=== PATIENT | male | born 1960 | race Caucasian/White ===

== ENCOUNTER 2023-08-02 17:00 | Outpatient (REF) | payer BC, SELFPAY | END 2023-08-02 17:01 | disposition home or self-care (01) | LOC: HO.LAB 17:00 | PROVIDERS: PCP Internal Medicine; Visit Provider Internal Medicine | DX: Z12.5 Encounter for screening for malignant neoplasm of prostate (principal); I45.10 Unspecified right bundle-branch block; Z72.0 Tobacco use; Z85.46 Personal history of malignant neoplasm of prostate | CPT/HCPCS: 36415; 80053; 82465; 84153; 85025 ==

== ENCOUNTER 2023-08-09 11:50 | Outpatient (REF) | payer BC, SELFPAY ==
[2023-08-09 12:43] LABS: Cholesterol 217 mg/dL (<200); HDL Cholesterol 41 mg/dL (>40); LDL Cholesterol Calculated 128 mg/dL (<100); Triglycerides 241 mg/dL (<150)
== END 2023-08-09 11:51 | disposition home or self-care (01) ==
LOC: HO.LAB 11:50
PROVIDERS: PCP Internal Medicine; Visit Provider Internal Medicine
DX: E78.00 Pure hypercholesterolemia, unspecified (principal)
CPT/HCPCS: 36415; 80061

== ENCOUNTER 2023-09-06 10:59 | Outpatient (AMB) | payer BC, SELFPAY ==
--- NOTE | 2023-09-06 11:05 | A.OFFVIS_ITS ---
Intake Intake Visit Reasons: Elevated PSA Intake Note: New Patient presents for initial visit for Elevated PSA (previously DrOsman Jones) PSA: 9.0 Urology Medications: none Blood Thinner: none De Ionizer Operator Required: No Accompanied by: Self / Same As Patient Allergies No Known Allergies Allergy (Verified 09/06/23 11:54) Medication List - Last Reconciled 09/06/23 by CARMEN Walton-ERICH brimonidine 0.2% drps ophthalmic (eye) cetirizine (Zyrtec) 10 mg PO DAILY HPI HPI Comments History of Present Illness Details Lennox is a pleasant 63-year-old male patient of Dr. Diamond. He presents to the office today as a new patient for an elevated PSA. In discussion with the patient today he reports to be doing and feeling well. He discusses having a follow-up with his PCP at which time his PSA was noted to be elevated at 9.July. He discusses previously following up with Dr. Sheppard approximately 8-10 years ago and having had prostate biopsy noting prostate cancer however never followed up. He is unsure of the level of his PSA at diagnosis and or exact results he states He just told me I had prostate cancer. Attempted to obtain previous urological records however unable to at this time. Attempted to archive information from [employer] however no prostate biopsy and or PSAs noted. Discussed at length importance of following up for overall health and well-being. Discussed prostate biopsy verses MRI verses surveillance monitoring these treatment options were discussed at length as well as risks and benefits of these treatment options. He currently denies any bothersome urinary issues or concerns. In office urinalysis results reviewed with the patient today. He otherwise offers no other issues or concerns at this time. [facility] Surgical History History of cataract surgery Review of Systems Const All systems reviewed & are unremarkable except as noted in HPI and below Physical Exam Const General: cooperative, comfortable, no acute distress, well developed, alert and awake Nutritional Appearance: overweight Orientation/consciousness: patient oriented x3 Limitations: no limitations HEENT Head: Yes normal to inspection, Yes normocephalic and Yes atraumatic Ears: hearing grossly normal bilaterally Eyes General: appearance normal, both eyes and all related structures Neck Neck: Yes normal visual inspection and Yes trachea midline Chest Chest palpation & inspection: normal inspection of the chest Resp Effort & Inspection: normal respiratory effort and able to speak in complete sentences Cardio Rate: regular rate GI Inspection: Yes normal to inspection General: Yes no CVA tenderness Back/Spine/Pelvis Back: no CVA tenderness Skin General skin exam: no rashes or lesions noted Neuro General: patient oriented x3 Extrem General: Yes normal to inspection Psych Appearance: grossly normal and well kempt Mental Status: mental status grossly normal Speech and movement: Normal speech and movement present and Clear speech present Affect: normal affect Attitude: cooperative Thought process: Normal thought process present Thought content: Normal thought content present Insight: Fair insight present (Psych) Judgement: Fair judgement present (Psych) Results AMB Urinalysis, Automated UA Leukoctes 0 Ehsan/uL Last Edit by [employer] CatherineMiroi on 09/06/23 11:30 UA Nitrite Negative Last Edit by [employer] on 09/06/23 11:30 UA Urobilinogen 0.2 mg/dL Last Edit by [employer] CatherineMiroi on 09/06/23 11:30 UA Protein 15 mg/dL Last Edit by [employer] CatherineMiroi on 09/06/23 11:30 UA pH 6.0 Last Edit by [employer] on 09/06/23 11:30 UA Blood 0 Aj/uL Last Edit by [employer] on 09/06/23 11:30 UA Specific [place] 1.025 Last Edit by [employer] on 09/06/23 11:30 UA Ketone Negative Last Edit by [employer] on 09/06/23 11:30 UA Bilirubin 0 mg/dL Last Edit by [employer] on 09/06/23 11:30 UA Glucose 0 mg/dL Last Edit by [employer] on 09/06/23 11:30 Results Reviewed Results Reviewed: Laboratory Last Values Urine pH (Auto) 6.0 09/06/23 11:23 Specific [place] (Auto) 1.025 09/06/23 11:23 Urine Protein (Auto) 15 mg/dL 09/06/23 11:23 Glucose (UA)(Auto) 0 mg/dL 09/06/23 11:23 Urine Ketones (Auto) Negative 09/06/23 11:23 Urine Blood (Auto) 0 Aj/uL 09/06/23 11:23 Urine Nitrite (Auto) Negative 09/06/23 11:23 Urine Bilirubin (Auto) 0 mg/dL 09/06/23 11:23 Urine Urobilinogen (Auto) 0.2 mg/dL 09/06/23 11:23 Leukocyte Esterase (Auto) 0 Ehsan/uL 09/06/23 11:23 Assessment & Plan Assessment & Plan (1) Elevated PSA: Code(s): R97.20 - Elevated prostate specific antigen [PSA] (2) History of prostate cancer: Code(s): Z85.46 - Personal history of malignant neoplasm of prostate Plan In office urinalysis results reviewed with the patient today; as noted above. Discussed at length importance of following up for overall health and well being. He currently denies any bothersome urinary issues or concerns. Attempted to obtain previous urology records Discussed at length further treatment options with prostate biopsy, MRI of the prostate, and or surveillance monitoring; this was discussed at length; risks and benefits of these interventions were discussed at length. Will obtain MRI given history of prostate cancer; discussed targeted prostate biopsy once MRI is completed and reviewed. Follow-up in 1 month with imaging to be completed prior; or sooner with any issues, concerns, and or questions. Orders: Orders AMB Urinalysis Automated Today Z13.9 - Encounter for screening, unspecified MR pelvis wo/w con Today C61 - Malignant neoplasm of prostate Patient Instructions: The patient had an opportunity to ask questions regarding the treatment plan. All questions were answered. Physical exam, labs, and imaging were discussed and reviewed in detail. As well as risks, benefits, and discussion of treatment choices. No major barriers to understanding were identified. The patient expressed understanding and agreement with the above treatment plan. The patient was made aware they should contact our office by phone for worsening of their current condition, the appearance of new symptoms, or with any questions or concerns. Compliance is encouraged with any medications and follow up testing that is ordered. It is a privilege to be allowed the opportunity to participate in? your urological care.? Again, if you have any questions or concerns If you have any questions or concerns please do not hesitate to contact me. The office is [phone]. This note is constructed using voice recognition software. While every effort has been made to ensure accuracy multiple slide operator errors may have been included. Yours sincerely, SANDRA Walton Coding Level of Care Code New Pt Level 3 (99136) Diagnoses Elevated PSA R97.20 History of prostate cancer Z85.46
== END 2023-09-06 11:55 | disposition home or self-care (01) ==
PROVIDERS: PCP Internal Medicine; Visit Provider Nurse Practitioner Family
DX: R97.20 Elevated prostate specific antigen [PSA] (principal); Z85.46 Personal history of malignant neoplasm of prostate; Z13.9 Encounter for screening, unspecified
CPT/HCPCS: 99203

== ENCOUNTER → 2023-09-06 10:59 | Outpatient (BNVA) | payer BC, SELFPAY | PROVIDERS: PCP Internal Medicine; Visit Provider Nurse Practitioner Family | DX: R97.20 Elevated prostate specific antigen [PSA] (principal); Z85.46 Personal history of malignant neoplasm of prostate | CPT/HCPCS: 81003 ==

== ENCOUNTER 2023-11-01 11:23 | Outpatient (AMB) | payer BC, SELFPAY ==
--- NOTE | 2023-11-01 11:24 | MHC.OFFVIS ---
Intake Intake Visit Reasons: 6w/MRI Intake Note: Patient presents for follow up visit for Elevated PSA, h/o prostate cancer, mri results Imagin10/04/23 Urology Medications: none Blood Thinner: none Court Transcriber Required: No Accompanied by: Self / Same As Patient Allergies No Known Allergies Allergy (Verified 11/01/23 11:52) Medication List - Last Reconciled 11/01/23 by CARMEN Walton-ERICH brimonidine 0.2% drdebra ophthalmic (eye) cetirizine (Zyrtec) 10 mg PO DAILY HPI HPI Comments History of Present Illness Details Lennox is a pleasant 63-year-old male patient of Dr. Diamond. He presents to the office today for follow-up. Of note, patient was seen approximately 2 months ago as a new patient for an elevated PSA at which time an MRI of the prostate was ordered for further assessment evaluation. These results were reviewed with the patient today. Prostate gland is not significantly enlarged but there is a PI-RADS 4 lesion in the right posterior lateral peripheral zone of the mid gland measuring approximately 1.1 cm in size. The surrounding periprostatic fat is unremarkable. No enlarged suspicious pelvic lymph nodes noted. Indeterminate enhancing 1.5 cm lesion within the left femoral neck. Fat containing inguinal hernias present. In discussion with the patient today he reports to be doing and feeling well. He has a previous urological history with Dr. Sheppard approximately 8-10 years ago at which time he underwent prostate biopsy however is unsure of results as he never followed up. In review of patient's medical records unable to obtain previous urology records. Attempted to archive information from [employer] however no prostate biopsy and or PSAs noted. PSA 08/23 9.0 LEONOR offered however deferred. Discussed at length importance of following up for overall health and well-being. Discussed targeted prostate biopsy at length. He currently denies any bothersome urinary issues or concerns. In office urinalysis results reviewed with the patient today. He otherwise offers no other issues or concerns at this time. [facility] Surgical History History of cataract surgery Review of Systems Const All systems reviewed & are unremarkable except as noted in HPI and below Physical Exam Const General: cooperative, comfortable, no acute distress, well developed, alert and awake Nutritional Appearance: overweight Orientation/consciousness: patient oriented x3 Limitations: no limitations HEENT Head: Yes normal to inspection, Yes normocephalic and Yes atraumatic Ears: hearing grossly normal bilaterally Eyes General: appearance normal, both eyes and all related structures Neck Neck: Yes normal visual inspection and Yes trachea midline Chest Chest palpation & inspection: normal inspection of the chest Resp Effort & Inspection: normal respiratory effort and able to speak in complete sentences Cardio Rate: regular rate GI Inspection: Yes normal to inspection General: Yes no CVA tenderness Back/Spine/Pelvis Back: no CVA tenderness Skin General skin exam: no rashes or lesions noted Neuro General: patient oriented x3 Extrem General: Yes normal to inspection Psych Appearance: grossly normal and well kempt Mental Status: mental status grossly normal Speech and movement: Normal speech and movement present and Clear speech present Affect: normal affect Attitude: cooperative Thought process: Normal thought process present Thought content: Normal thought content present Insight: Fair insight present (Psych) Judgement: Fair judgement present (Psych) Results AMB Urinalysis, Automated UA Leukoctes 15 Ehsan/uL Last Edit by [employer] on 11/01/23 11:35 UA Nitrite Negative Last Edit by [employer] on 11/01/23 11:35 UA Urobilinogen 0.2 mg/dL Last Edit by [employer] on 11/01/23 11:35 UA Protein 15 mg/dL Last Edit by [employer] on 11/01/23 11:35 UA pH 5.5 Last Edit by [employer] on 11/01/23 11:35 UA Blood 0 Aj/uL Last Edit by [employer] on 11/01/23 11:35 UA Specific [place] 1.020 Last Edit by [employer] on 11/01/23 11:35 UA Ketone Negative Last Edit by [employer] on 11/01/23 11:35 UA Bilirubin 0 mg/dL Last Edit by [employer] on 11/01/23 11:35 UA Glucose 0 mg/dL Last Edit by [employer] on 11/01/23 11:35 Results Reviewed Results Reviewed: Laboratory Last Values Urine pH (Auto) 5.5 11/01/23 11:30 Specific [place] (Auto) 1.020 11/01/23 11:30 Urine Protein (Auto) 15 mg/dL 11/01/23 11:30 Glucose (UA)(Auto) 0 mg/dL 11/01/23 11:30 Urine Ketones (Auto) Negative 11/01/23 11:30 Urine Blood (Auto) 0 Aj/uL 11/01/23 11:30 Urine Nitrite (Auto) Negative 11/01/23 11:30 Urine Bilirubin (Auto) 0 mg/dL 11/01/23 11:30 Urine Urobilinogen (Auto) 0.2 mg/dL 11/01/23 11:30 Leukocyte Esterase (Auto) 15 Ehsan/uL 11/01/23 11:30 Assessment & Plan Assessment & Plan (1) Elevated PSA: Code(s): R97.20 - Elevated prostate specific antigen [PSA] (2) History of prostate cancer: Code(s): Z85.46 - Personal history of malignant neoplasm of prostate Plan: Risks, benefits and alternatives to therapy were discussed. These include but are not limited to infection, bleeding, damage to local organs and tissues, need for further interventions. ? Anesthetic risks regarding cardiac arrhythmia, blood clots, and potential mortality were discussed. The patient understands the typical recovery time and the outpatient nature of the procedure. After consideration of these risks the patient gives full informed consent and they wish to move ahead with the procedure. Plan In office urinalysis results reviewed with the patient today; as noted above. Recent prostate MRI results reviewed with the patient today; as noted above Discussed obtaining bone scan and left-sided femur x-ray for further assessment evaluation. Discussed at length targeted prostate biopsy verses surveillance monitoring verses traditional prostate biopsy; risks and benefits of these interventions were discussed at length. Patient otherwise denies any bothersome urinary issues or concerns. Patient reports be happy with current voiding parameters. Will schedule for targeted prostate biopsy Follow-up doctor's orders; or sooner with any issues, concerns, and or questions. Orders: Orders AMB Urinalysis Automated Today Z13.9 - Encounter for screening, unspecified XR femur LT 2V Today R97.20 - Elevated prostate specific antigen [PSA], Z85.46 - Personal history of malignant neoplasm of prostate NM bone scan whole body Today C61 - Malignant neoplasm of prostate, C79.51 - Secondary malignant neoplasm of bone Patient Instructions: The patient had an opportunity to ask questions regarding the treatment plan. All questions were answered. Physical exam, labs, and imaging were discussed and reviewed in detail. As well as risks, benefits, and discussion of treatment choices. No major barriers to understanding were identified. The patient expressed understanding and agreement with the above treatment plan. The patient was made aware they should contact our office by phone for worsening of their current condition, the appearance of new symptoms, or with any questions or concerns. Compliance is encouraged with any medications and follow up testing that is ordered. It is a privilege to be allowed the opportunity to participate in? your urological care.? Again, if you have any questions or concerns If you have any questions or concerns please do not hesitate to contact me. The office is [phone]. This note is constructed using voice recognition software. While every effort has been made to ensure accuracy balancer scale errors may have been included. Yours sincerely, SANDRA Walton Coding Level of Care Code Est Pt Level 4 (71186) Diagnoses Elevated PSA R97.20 History of prostate cancer Z85.46
== END 2023-11-01 11:49 | disposition home or self-care (01) ==
PROVIDERS: PCP Internal Medicine; Visit Provider Nurse Practitioner Family
DX: R97.20 Elevated prostate specific antigen [PSA] (principal); Z85.46 Personal history of malignant neoplasm of prostate; Z13.9 Encounter for screening, unspecified
CPT/HCPCS: 99214

== ENCOUNTER → 2023-11-01 11:23 | Outpatient (BNVA) | payer BC, SELFPAY | PROVIDERS: PCP Internal Medicine; Visit Provider Nurse Practitioner Family | DX: R97.20 Elevated prostate specific antigen [PSA] (principal); Z85.46 Personal history of malignant neoplasm of prostate | CPT/HCPCS: 81003 ==

== ENCOUNTER → 2023-12-18 10:04 | Outpatient (REF) | payer BC, SELFPAY ==
--- NOTE | ~2023-12-18 | NM_ITS ---
EXAMINATION: NM BONE SCAN OF THE WHOLE BODY CLINICAL INFORMATION: Malignant neoplasm of prostate. Elevated PSA. The patient is found to have an indeterminate enhancing 1.5 cm lesion within the left femoral neck on recent outside MRI of the prostate. Bilateral hip pain. COMPARISON: Radiographs of the left femur done on the same day. TECHNIQUE: Multiple gamma scintillation camera images of the whole body were performed 2.75 hours following the intravenous administration of 40 mCi Tc-99m MDP. The radiotracer was injected through left antecubital superficial vein without complications. FINDINGS: In the head, unremarkable. In the thoracic cage and upper extremities, remarkable for asymmetric linear increased tracer avidity at mid anterolateral aspect of the left hemithoracic cage appears to corresponds to left sixth rib (best seen in CHINTAN projection), highly suspicious for osseous metastases in this patient with history of prostate cancer. The remainder of the thoracic cage otherwise scintigraphically appears unremarkable. In the spine, no suspicious focal lesion. In the pelvis, no suspicious focal lesion. In the lower extremities, in the region of the left femoral neck, there is no definite concordant scintigraphic abnormality present. However, slight heterogenicity is noted in the intertrochanteric region of the left femur. Mild increased tracer avidity at right mid foot and region of the left ankle likely represent posttraumatic and/or arthritic changes. No other definite bony abnormalities are noted. The urinary bladder and faint visualization of both kidneys are noted. NM/NM bone scan whole body IMPRESSION: * Solitary linear increased tracer avidity is noted involving the mid anterolateral aspect of the left sixth rib highly suspicious for osseous metastases in this patient with history of malignant neoplasm of prostate. * No definite scintigraphic correlate to reported 1.5 cm enhancing lesion within the left femoral neck. The intertrochanteric region of the left femur however appears slightly heterogeneous, indeterminate etiology. * Likely posttraumatic and/or arthritic changes involving the left ankle and right midfoot. * A follow-up PSMA PET/CT scan may be considered for further full detail evaluation (more accurate test as compared to the bone scan) of both the soft tissue as well as osseous metastasis, if clinically appropriate.
--- NOTE | ~2023-12-18 | XR_ITS ---
EXAMINATION: XR FEMUR, LEFT CLINICAL INFORMATION: Indeterminant lesion in left femoral neck COMPARISON: Bone scan November 2023 TECHNIQUE: AP and lateral views of the left femur were obtained. FINDINGS: Question punctate areas of increased density in the intertrochanteric region over near measuring 2.4 x 1 cm. Bone otherwise unremarkable. Degenerative changes of symphysis pubis. Arterial calcification noted XR/XR femur LT 2V IMPRESSION: Indeterminant finding in the intertrochanteric region this could reflect normal variation of bone density but cannot exclude bone lesion possibly cartilage lesion/enchondroma. Recommend follow-up imaging with MRI to clarify given the combination of x-ray and bone scan findings in patients history of malignant neoplasm of prostate
== END ==
LOC: HO.NUCMED 10:04
PROVIDERS: PCP Internal Medicine; Visit Provider Nurse Practitioner Family
DX: C61 Malignant neoplasm of prostate (principal); C79.51 Secondary malignant neoplasm of bone; R97.20 Elevated prostate specific antigen [PSA]; Z85.46 Personal history of malignant neoplasm of prostate
CPT/HCPCS: 73552; 78306; A9503

== ENCOUNTER 2023-12-26 15:00 | Outpatient (AMB) | payer BC, SELFPAY ==
--- NOTE | 2023-12-26 14:51 | MHC.OFFVIS ---
Intake Visit Reasons: H&P Targeted Prostate biopsy Allergies No Known Allergies Allergy (Verified 01/01/24 12:14) HPI Comments Details: Samy is a pleasant male. He has a patient of Dr. Diamond. He seen for the following urologic conditions - elevated PSA Plan for fusion biopsy Procedure discussed Main risk is infection Elevated PSA PSA 08/23 9.0 Prostate MRI performed. Gland not significantly enlarged. Indeterminate enhancing 1.5 lesion. PI-RADS 4 lesion right posterolateral peripheral zone PFSH Medical History Hay fever Surgical History Hx of hand surgery History of cataract surgery Social History Household Members: Spouse Household Members Other:: 2 Housing: House Do you presently have visiting nurse or other home services: No Alcohol intake: current Patient Tobacco Use Status: Current everyday Tobacco user Tobacco use type: Cigarette Cigarette Packs Per Day: 0.5 Cigarettes Per Day: 10.0 Second Hand Smoke Exposure: No Substance Use Type: Marijuana service: No Review of Systems Const Denies chills and Denies fever(s) Card Reports no additional complaints and Denies syncope Resp Denies cough GI Denies abdominal pain and Denies heartburn Reports as per HPI and Denies change in libido Neuro Denies syncope Psych Denies change in libido Endo Denies change in libido Physical Exam Const General: cooperative, healthy appearing, comfortable and no acute distress Orientation/consciousness: patient oriented x3 HEENT Face and sinus: Yes normal facial exam Mouth: moist mucous membranes Neck Neck: Yes normal visual inspection, Yes full ROM and Yes trachea midline Chest Chest palpation & inspection: normal inspection of the chest Resp Effort & Inspection: normal respiratory effort, able to speak in complete sentences and no respiratory distress GI Inspection: Yes normal to inspection Back/Spine/Pelvis Cervical Spine: normal cervical lordosis Thoracic/Lumbar Spine: thoracic and lumbar spine normal to inspection Skin General skin exam: no rashes or lesions noted Neuro General: patient oriented x3, gait normal, tone normal and moves all extremities Extrem General: Yes normal to inspection and Yes capillary refill normal Assessment & Plan Assessment & Plan (1) Elevated PSA: Code(s): R97.20 - Elevated prostate specific antigen [PSA] Category: Medical Plan Risks, benefits and alternatives to therapy were discussed. These include but are not limited to infection, bleeding, damage to local organs and tissues, need for further interventions. Anesthetic risks regarding cardiac arrhythmia, blood clots, and potential mortality were discussed. The patient understands the typical recovery time and the outpatient nature of the procedure. After consideration of these risks the patient gives full informed consent and they wish to move ahead with the procedure. Plan for MRI ultrasound fusion targeted biopsy Patient Instructions: Imaging studies, laboratory and physical exam results were discussed and reviewed in detail. No major barriers to patient understanding were identified. An opportunity to ask questions regarding the treatment plan was provided. All questions were answered. The patient expressed understanding and agreement with the above treatment plan. The patient is aware they should contact our office by phone for worsening of their current condition or the appearance of new urologic symptoms. Compliance is encouraged with any medications and followup testing that is ordered. It is a privilege to participate in the urologic care of your patient. If you have any questions or concerns regarding treatment for the above conditions, or other urologic issues, please do not hesitate to contact me. The office telephone contact is [phone]. This note is constructed using voice recognition software. While every effort has been made to ensure accuracy ex assistant/program director errors may have been included. Yours sincerely, Dr Epi Marie MD, [facility] - Urology Providers of Expert, Compassionate Care for the Genitourinary System Coding Level of Care Code Est Pt Level 3 (44729) Diagnoses Elevated PSA R97.20
== END 2023-12-26 15:06 | disposition home or self-care (01) ==
LOC: HO.HUSH 15:00
PROVIDERS: PCP Internal Medicine; Visit Provider Urology
DX: R97.20 Elevated prostate specific antigen [PSA] (principal)
CPT/HCPCS: 99213

== ENCOUNTER → 2023-12-26 15:00 | Outpatient (BNVA) | payer BC, SELFPAY | PROVIDERS: PCP Internal Medicine; Visit Provider Urology ==

== ENCOUNTER → 2024-01-01 10:32 | Day surgery (SDC) | payer BC, SELFPAY ==
--- NOTE | 2023-12-28 12:10 | HO.ANESPROP2 ---
HPI - Anesthesia Eval Consult details Narrative: Cx'd DOS for new onset afib with symptomatic SOB. Sent to ER for further eval. 63yo M for Targeted Prostate Needle Biopsy PMFSH Active Problems Active Problems: All Active Problems History of prostate cancer (Acute) Elevated PSA (Acute) Past Medical History Medical History Hay fever Surgical History Surgical History Hx of hand surgery History of cataract surgery Social History Social History Household Members: Spouse Household Members Other:: 2 Housing: House Do you presently have visiting nurse or other home services: No Alcohol intake: current Patient Tobacco Use Status: Current everyday Tobacco user Tobacco use type: Cigarette Cigarette Packs Per Day: 0.5 Cigarettes Per Day: 10.0 Second Hand Smoke Exposure: No Substance Use Type: Marijuana service: No Meds Allergies Allergy/AdvReac Type Severity Reaction Status Date / Time No Known Allergies Allergy Verified 01/01/24 12:14 Home Medications ?Medication ?Instructions ?Recorded ?Confirmed ?Last Taken ?Type cetirizine 10 mg chewable tablet 10 mg PO DAILY 09/06/23 01/01/24 12/31/23 History (Zyrtec) Assessment and Plan Assessment Anesthesia Assessment: Chart Reviewed
--- NOTE | 2024-01-01 | ECG_ITS ---
Test Reason : Tachycardia Blood Pressure : / mmHG Vent. Rate : 113 BPM Atrial Rate : 000 BPM P-R Int : 000 ms QRS Dur : 128 ms QT Int : 380 ms P-R-T Axes : 000 -76 116 degrees QTc Int : 521 ms Atrial fibrillation with rapid ventricular response with premature ventricular or aberrantly conducted complexes Left axis deviation Right bundle branch block Inferior infarct , age undetermined T wave abnormality, consider lateral ischemia Abnormal ECG No previous ECGs available Referred By: Tasha Nichols Electronically Signed By:MUSA FERGUSON MD
[2024-01-01 10:45] VITALS: BMI 35.2
--- NOTE | 2024-01-01 11:48 | PM.ANESPN ---
Subjective Subjective Date of Service: 01/01/24 Interval history: 63 yo M with history of prostate cancer arrived in Short Stay Surgery for targeted prostate needle biopsy. Reported feeling short of breath and fatigued for the past few days. Denies any chest pain. Negative cardiac history. Patient does smoke, uses marijuana, and consumes 2-3 beers daily. property assessment monitor showed tachycardia with HR in the 120s-130s. Stat EKG performed which showed atrial fibrillation with RVR. Called ED and spoke to staff - will transfer patient now for further work-up. Physical Exam Vital Signs: Vital Signs: BMI result Body Mass Index 35.2 Progress Note: A&P Time Spent With Patient Time: Total time managing care of this patient today ____ minutes. Procedures Date of Service Date of Service: 01/01/24
--- NOTE | 2024-01-01 11:54 | PC.NURSE ---
hr found to be in 130's with afib suspected. anes made aware and ekg done and confirmed afib. new onset. states feeling sob last few days. no chest pains or palpitations. to go to er for further evaluation per anesthesia. procedure cancelled at this time. iv #20g left hand. dana frederick reported to in er after doc to doc report given.. family notified by patient.
== END ==
PROVIDERS: PCP Internal Medicine; Visit Provider Urology
DX: R97.20 Elevated prostate specific antigen [PSA] (principal); I48.91 Unspecified atrial fibrillation; Z85.46 Personal history of malignant neoplasm of prostate; Z53.09 Procedure and treatment not carried out because of other contraindication
CPT/HCPCS: 93005; J2250; J2704; J3010

== ENCOUNTER → 2024-01-01 11:24 | Outpatient (BNV) | payer BC, SELFPAY | PROVIDERS: PCP Internal Medicine; Visit Provider Internal Medicine Cardiovascular Disease | DX: R94.31 Abnormal electrocardiogram [ECG] [EKG] (principal) | CPT/HCPCS: 93010 ==

== ENCOUNTER 2024-01-01 12:04 | Inpatient (IN) | payer BC, SELFPAY ==
[2024-01-01] VITALS (9 sets, daily range): BP systolic 98–120; BP diastolic 57–87; PULSE 60–127; RESP 16–25; TEMP 36.3–37.1; O2SAT 93–98; BMI 38.0; BMI 35.4
--- NOTE | ~2024-01-01 | XR_ITS ---
EXAMINATION: XR CHEST CLINICAL INFORMATION: Shortness of breath. COMPARISON: None available. TECHNIQUE: Frontal view of the chest was obtained. FINDINGS: The lungs are moderately expanded. There is pulmonary vascular prominence. There is mild interstitial edema. Cardiac silhouette appears prominent. No pleural effusion. XR/XR chest 1V IMPRESSION: Mild interstitial edema.
--- NOTE | 2024-01-01 12:06 | ECG_ITS ---
Test Reason : irregular hr Blood Pressure : / mmHG Vent. Rate : 119 BPM Atrial Rate : 000 BPM P-R Int : 000 ms QRS Dur : 128 ms QT Int : 376 ms P-R-T Axes : 000 -76 110 degrees QTc Int : 528 ms Atrial fibrillation with rapid ventricular response with premature ventricular or aberrantly conducted complexes Left axis deviation Right bundle branch block Inferior infarct (cited on or before 01-JAN-2024) T wave abnormality, consider lateral ischemia Abnormal ECG When compared with ECG of 01-JAN-2024 11:24, No significant change was found Referred By: Generic ED Physician Electronically Signed By:MUSA FERGUSON MD
[2024-01-01] MEDS: dilTIAZem HCL 50 MG/10 ML VIAL 10 MG IVPUSH (12:59)
[2024-01-01] MEDS: Midazolam HCl/PF 2 MG/2 ML VIAL IVPUSH (13:04)
[2024-01-01 13:05] LABS: MANUAL DIFF FLAG NO
[2024-01-01 13:06] LABS: Basophils Absolute Auto 0.1 X10*3/uL (0.0-0.2); Basophils Percent Auto 0.5 % (0-2); Eosinophils Absolute Auto 0.2 X10*3/uL (0.0-0.4); Eosinophils Percent Auto 2.3 % (0-4); Hematocrit 46.6 % (42.0-52.0); Hemoglobin 15.3 g/dl (14.0-18.0); Imm Gran Abs Auto 0.05 X10*3/uL (0.00-0.03); Imm Gran Pct Auto 0.5 % (0.0-0.4); Lymphocytes Absolute Auto 3.3 X10*3/uL (1.2-4.9); Lymphocytes Percent Auto 33.3 % (20-40); Mean Corpuscular HGB Conc 32.8 g/dl (31.0-36.0); Mean Corpuscular Hemoglobin 28.7 pg (27.0-33.0); Mean Corpuscular Volume 87.3 fL (80.0-98.0); Mean Platelet Volume 10.9 fL (9.4-12.4); Monocytes Absolute Auto 0.8 X10*3/uL (0.1-1.2); Monocytes Percent Auto 7.5 % (2-11); Neutrophils Absolute Auto 5.6 x10*3/uL (2.0-8.3); Neutrophils Percent Auto 55.9 % (45-73); Platelet Count 223 X10*3/uL (160-400); Red Blood Count 5.34 X10*6/uL (4.60-5.80); Red Cell Distribution Width 14.4 % (11.0-16.0)
[2024-01-01 13:15] LABS: D Dimer High Sensitivity 203 NG/ML
[2024-01-01 13:27] LABS: Anion Gap 12 (12-20); Blood Urea Nitrogen 14 mg/dL (9-16); Calcium 9.1 mg/dL (8.4-10.2); Carbon Dioxide 24 mmol/L (22-29); Chloride 109 mmol/L (96-108); Creatinine Clr Calc Pharmacy 117.2; Estimated Glomerular Filt Rate > 60; Glucose Random 93 mg/dL (60-115); Potassium 4.1 mmol/L (3.3-5.1); Sodium 141 mmol/L (135-145)
[2024-01-01 13:33] LABS: B Type Natriuretic Peptide 1104 pg/mL (<100)
[2024-01-01 13:45] LABS: Troponin-I High Sensitivity 362.1 ng/L (<3.5-35.0)
--- NOTE | 2024-01-01 13:46 | ED_ITS ---
HPI - General Adult General Chief complaint: Arrhythmia/Palpitations Stated complaint: AFIB Time Seen by Provider: 01/01/24 12:37 Source: patient Mode of arrival: ambulatory Limitations: no limitations History of Present Illness ED Provider: Dr. Becker HPI narrative: patient has been short of breath for the last 4 days. He was to have anesthesia today for a prostate biopsy and was found to be in rapid atrial fibrillation, he denies chest pain or palpitations but noted increased shortness of breath. Patient does drink everyday Related Data Home Medications ?Medication ?Instructions ?Recorded ?Confirmed cetirizine 10 mg chewable tablet 10 mg PO DAILY 09/06/23 01/01/24 (Zyrtec) Allergies Allergy/AdvReac Type Severity Reaction Status Date / Time No Known Allergies Allergy Verified 01/01/24 12:14 Review of Systems 2 Review of Systems: Yes all other systems are reviewed and are negative Cardiovascular: Cardiovascular: Reports dyspnea Respiratory: Respiratory: Reports dyspnea Neurologic: Denies Sensory deficit (Neuro) [facility] Past Medical History Medical History Hay fever Surgical History Hx of hand surgery History of cataract surgery Social History Social History Patient Tobacco Use Status: Current everyday Tobacco user Tobacco use type: Cigarette Cigarettes Per Day: 15 Physical Exam ED Vital Signs: Vital Signs - 24 hr 01/01/24 12:07 01/01/24 12:32 01/01/24 12:57 Temperature 98.8 F 97.8 F Pulse Rate 126 H 60 113 H Respiratory Rate 22 H 20 20 Blood Pressure 99/73 106/57 L 119/87 Pulse Oximetry 93 96 96 Oxygen Delivery Method Room Air Room Air Room Air 01/01/24 12:59 Temperature Pulse Rate 127 H Respiratory Rate Blood Pressure Pulse Oximetry Oxygen Delivery Method BMI result Body Mass Index 38.0 Const Other: slightly shakey General: healthy appearing Nutritional Appearance: average body habitus Orientation/consciousness: oriented to person and patient oriented x3 Limitations: no limitations HENMT Head: Yes normal to inspection Ears: external ears normal General nose exam: Normal external nose present Mouth: Normal oral and palatal mucosa present and oropharynx normal Throat: Yes posterior oropharynx normal Eyes General: appearance normal, both eyes and all related structures Neck Neck: Yes normal visual inspection Chest Chest palpation & inspection: normal inspection of the chest Resp Auscultation: clear to auscultation bilaterally Cardio Other: tachycardia, IRRR no st or twave changes Jugular venous distension: no JVD GI Inspection: Yes normal to inspection Palpation (GI): Soft to palpation, nontender and No hepatosplenomegaly present Auscultation: normal bowel sounds General: Yes no CVA tenderness Back/Spine/Pelvis Back: no CVA tenderness Skin General skin exam: no rashes or lesions noted Neuro General: oriented to person and patient oriented x3 Cranial nerves: Yes CN's II-XII intact bilaterally Motor exam (neuro): 5/5 motor strength present throughout Sensory Exam: No Sensory deficit (Neuro) Extrem General: Yes normal to inspection Psych Appearance: grossly normal Course Reevaluation(s) Reevaluation #1: I spent 60 minutes of critical care, with interventions, assessments, speaking to patient, consultants, and family. Time: 14:06 Medications Administered Discontinued Medications Generic Name Dose Route Start Last Admin Trade Name Freq PRN Reason Stop Dose Admin Diltiazem HCl 10 mg 01/01/24 12:44 01/01/24 12:59 Diltiazem Hcl 50 Mg/10 Ml Vial IVPUSH 01/01/24 12:45 10 mg STAT STA Administration Midazolam HCl 2 mg 01/01/24 12:52 01/01/24 13:04 Midazolam Hcl/Pf 2 Mg/2 Ml Vial IVPUSH 01/01/24 12:53 2 mg ONCE ONE Administration Medical Decision Making Differential Diagnosis Differential Diagnoses: The differential diagnosis associated with the presentation includes (atrial fibrillation, cardiac ischemia, PE, CHF, pneumonia, alcohol withdrawal were all considered) Admission/Observation Consideration of admission/observation: Escalation of care including admission/observation considered (upon arrival patient considered for admission) Consult Healthcare Provider Management of the patient was discussed with: Hospitalist Lab Data MDM Lab Attestation statement: I reviewed the patient's lab results. (elevated troponin and BNP were noted) 01/01/24 12:58 01/01/24 12:58 Labs: Lab Results 01/01/24 Range/Units 12:58 WBC 10.0 (4.8-10.8) X10*3/uL RBC 5.34 (4.60-5.80) X10*6/uL Hgb 15.3 (14.0-18.0) g/dl Hct 46.6 (42.0-52.0) % MCV 87.3 (80.0-98.0) fL MCH 28.7 (27.0-33.0) pg MCHC 32.8 (31.0-36.0) g/dl RDW 14.4 (11.0-16.0) % Plt Count 223 (160-400) X10*3/uL MPV 10.9 (9.4-12.4) fL Immature Gran % (Auto) 0.5 H (0.0-0.4) % Neut % (Auto) 55.9 (45-73) % Lymph % (Auto) 33.3 (20-40) % [place] % (Auto) 7.5 (2-11) % Eos % (Auto) 2.3 (0-4) % Baso % (Auto) 0.5 (0-2) % Lymph # (Auto) 3.3 (1.2-4.9) X10*3/uL [place] # (Auto) 0.8 (0.1-1.2) X10*3/uL Eos # (Auto) 0.2 (0.0-0.4) X10*3/uL Baso # (Auto) 0.1 (0.0-0.2) X10*3/uL Abs Immat Gran (auto) 0.05 H (0.00-0.03) X10*3/uL Absolute Neuts (auto) 5.6 (2.0-8.3) x10*3/uL Absolute Nucleated RBC 0.000 (0.0-0.012) X10*3/uL Nucleated RBC % (auto) 0.0 (0.0-0.2) /100WBC D-Dimer High Sensitivty 203 NG/ML Sodium 141 (135-145) mmol/L Potassium 4.1 (3.3-5.1) mmol/L Chloride 109 H (96-108) mmol/L Carbon Dioxide 24 (22-29) mmol/L Anion Gap 12 (12-20) BUN 14 (9-16) mg/dL Creatinine 0.86 (0.5-1.4) mg/dL Estim Creat Clear Calc 117.2 Estimated GFR > 60 Random Glucose 93 (60-115) mg/dL Calcium 9.1 D (8.4-10.2) mg/dL Troponin I High Sens 362.1 H* (<3.5-35.0) ng/L B-Natriuretic Peptide 1104 H (<100) pg/mL Independent Interpretation I performed an independent interpretation of an: EKG (atrial fibrillation rate of 120, lateral twave changes) and Plain X-Ray (CXR mild interstitial edema) Tests considered The following testing was considered but not selected: CT of chest not performed as patient with negative ddimer Prescription Management I considered prescription management with: Antibiotic (no infiltrate on cxr) Chronic Conditions Patient?s care impacted by: Other (alcohol use daily) Social Determinants Patient?s care significantly limited by Social Determinants of Health including: Alcoholism and drug addiction in family Discharge Plan Discharge Clinical Impression: Atrial fibrillation, CHF (congestive heart failure), Elevated troponin Patient Disposition: Admitted As Inpatient Print Language: Khmer
[2024-01-01] MEDS: dilTIAZem HCL 125 MG in 0.9 % Sodium Chloride 100 ML 10 MG IVCONT (14:07)
[2024-01-01] MEDS: Aspirin Enteric Coated 325 MG TABLET.DR PO (14:15)
[2024-01-01 14:16] LABS: Hematocrit 48.5 % (42.0-52.0); Hemoglobin 15.9 g/dl (14.0-18.0); Mean Corpuscular HGB Conc 32.8 g/dl (31.0-36.0); Mean Corpuscular Hemoglobin 28.9 pg (27.0-33.0); Mean Platelet Volume 11.1 fL (9.4-12.4); Platelet Count 197 X10*3/uL (160-400); Red Blood Count 5.51 X10*6/uL (4.60-5.80); Red Cell Distribution Width 14.5 % (11.0-16.0); White Blood Count 10.5 X10*3/uL (4.8-10.8)
[2024-01-01 14:40] LABS: Troponin-I High Sensitivity 355.8 ng/L (<3.5-35.0)
--- NOTE | 2024-01-01 14:40 | ECG_ITS ---
Test Reason : DYSRYTHMIA Blood Pressure : / mmHG Vent. Rate : 096 BPM Atrial Rate : 000 BPM P-R Int : 000 ms QRS Dur : 136 ms QT Int : 410 ms P-R-T Axes : 000 -79 127 degrees QTc Int : 517 ms Atrial fibrillation with premature ventricular or aberrantly conducted complexes Left axis deviation Right bundle branch block Inferior infarct (cited on or before 01-JAN-2024) T wave abnormality, consider lateral ischemia Abnormal ECG When compared with ECG of 01-JAN-2024 12:32, No significant change was found Referred By: Samy Becker Electronically Signed By:MUSA FERGUSON MD
[2024-01-01 14:56] LABS: INTERNATIONAL NORM RATIO 1.6 (0.9-1.1); Prothrombin Time 19.4 SEC (11.1-13.3)
[2024-01-01 14:58] LABS: Partial Thromboplastin Time 34.5 SEC (26.0-36.8)
--- NOTE | 2024-01-01 15:05 | PHA.MEDREC ---
Pharmacy Consult ? Medication Reconciliation Pharmacy has completed the medication reconciliation. Patient confirmed medication on list.
--- NOTE | 2024-01-01 16:20 | P.HPHOSP_ITS ---
History of Present Illness Date of Service: 01/01/24 Attending physician on admission: Mary Whitlock Chief Complaint: new afib at pre op eval 63-year-old male with history of alcohol use disorder, severe obesity who is a current 15 cigarette per day smoker presented to the ED due to new onset atrial fibrillation with RVR. The patient was undergoing preop evaluation with anesthesia for prostate biopsy with EKG showing new onset atrial fibrillation with RVR. The patient denies any known history of AFib, cardiac arrhythmia, or cardiovascular disease. He denies any chest pain, palpitations, lightheadedness. However, does state he has had dyspnea both at rest and with exertion along with fatigue ongoing since Monday. He was previously an everyday drinking consuming 3-4 alcoholic beverages on a daily basis at night and stopped drinking cold turkey on Monday. Denies any withdrawal symptoms including nausea, vomiting, tremors, confusion, agitation, anxiety, hallucinations. He does also smoke 15 cigarettes on a daily basis and occasional marijuana use but denies any illicit drug use. On arrival, patient tachycardic to 126 and tachypneic to 22, blood pressure soft but no hypotension. He is afebrile. There has no leukocytosis or anemia. Renal function and electrolyte levels normal. Initial troponin 362.1, repeat 355.8. BNP 1104. Will check urine drug screen. Chest x-ray shows mild interstitial edema. Most recent EKG shows atrial fibrillation with rate 96 with T-wave inversions in lateral leads, prior EKG with rate 119. There does appear to be slight increase in T-wave inversions in lateral leads compared to prior EKG earlier today. In the ED, has received 325 mg aspirin, 10 mg IV diltiazem, 2 mg Versed and was started on Cardizem drip per protocol. He will be admitted for new onset afib with rvr. Review of Systems 2 Review of Systems: Yes all other systems are reviewed and are negative [facility] Medical History Hay fever Surgical History Hx of hand surgery History of cataract surgery Social History Patient Tobacco Use Status: Current everyday Tobacco user Tobacco use type: Cigarette Cigarettes Per Day: 15 Advance Directives: No Advance Directives Information Provided: Yes Meds Allergies Allergy/AdvReac Type Severity Reaction Status Date / Time No Known Allergies Allergy Verified 01/01/24 12:14 Active Medications: Current Medications Acetaminophen (Acetaminophen 325 Mg Tablet) 650 mg PO Q6H PRN PRN Reason: Pain, Mild (Pain Scale 1-3) Folic Acid (Folic Acid 1 Mg Tablet) 1 mg PO DAILY [facility] Heparin Sodium (Porcine) (Heparin Sodium,Porcine 5,000 Unit/Ml Vial) 4,800 unit 40 unit/kg (4800 unit) IVPUSH PROTOCOL BOLUS PRN; Protocol PRN Reason: 40 unit/kg - Heparin Protocol Heparin Sodium (Porcine) (Heparin Sodium,Porcine 5,000 Unit/Ml Vial) 9,600 unit 80 unit/kg (9600 unit) IVPUSH PROTOCOL BOLUS PRN; Protocol PRN Reason: 80 unit/kg - Heparin Protocol Diltiazem HCl 125 mg/ Sodium (Chloride) 125 mls @ 0 mls/hr IVCONT .Q0M [facility]; Protocol Last Admin: 01/01/24 14:07 Dose: 10 mg/hr, 10 mls/hr Heparin Sodium/Sodium Chloride (Heparin Sodium,Porcine/1/2ns) 25,000 unit in 250 mls @ 0 mls/hr IVCONT .Q0M [facility]; Protocol Loratadine (Loratadine 10 Mg Tablet) 10 mg PO DAILY [facility] Magnesium Hydroxide (Milk Of Magnesia 30 Ml Oral.Susp) 30 ml PO DAILY PRN PRN Reason: Constipation Ondansetron HCl (Ondansetron Hcl 4 Mg/2 Ml Vial) 4 mg IVPUSH Q8H PRN PRN Reason: Nausea and Vomiting Sodium Chloride (0.9 % Sodium Chloride Flush 3 Ml Syringe) 3 ml IVFLUSH QSHIFT [facility] Thiamine HCl (Thiamine Hcl 100 Mg Tablet) 100 mg PO DAILY [facility] Home Medications ?Medication ?Instructions ?Recorded ?Confirmed ?Last Taken ?Type cetirizine 10 mg chewable tablet 10 mg PO DAILY 09/06/23 01/01/24 12/31/23 History (Zyrtec) Physical Exam 2 Vital Signs and Narrative: Vital Signs: Last Vital Signs Temp 97.9 F 01/01/24 15:02 Pulse 110 H 01/01/24 15:02 Resp 25 H 01/01/24 15:02 BP 110/62 01/01/24 15:02 Pulse Ox 94 01/01/24 15:02 O2 Del Method Room Air 01/01/24 15:02 BMI result Body Mass Index 38.0 Constitutional - Awake and Alert, No apparent distress Eyes - PERRLA, EOMI Cardiovascular - S1S2, irregularly irregular rhythm, tachycardic, No edema Respiratory - Normal lung expansion, Normal respiratory effort, No respiratory distress, CTA bilaterally Gastrointestinal - NT / ND; +BS; No rebound or guarding Extremities - no calf tenderness bilaterally, no swelling Skin - Warm/Dry Neurological - Alert & oriented x3 Psychological - Appropriate affect Results Labs 01/01/24 14:11 01/01/24 12:58 Labs: Laboratory Results - last 24 hr 01/01/24 01/01/24 01/01/24 12:58 14:11 14:46 MCV 87.3 88.0 MCH 28.7 28.9 MCHC 32.8 32.8 RDW 14.4 14.5 Plt Count 223 197 MPV 10.9 11.1 Immature Gran % (Auto) 0.5 H Neut % (Auto) 55.9 Lymph % (Auto) 33.3 [place] % (Auto) 7.5 Eos % (Auto) 2.3 Baso % (Auto) 0.5 Lymph # (Auto) 3.3 [place] # (Auto) 0.8 Eos # (Auto) 0.2 Baso # (Auto) 0.1 Abs Immat Gran (auto) 0.05 H Absolute Neuts (auto) 5.6 Absolute Nucleated RBC 0.000 0.000 Nucleated RBC % (auto) 0.0 0.0 PT 19.4 H INR 1.6 H APTT 34.5 D-Dimer High Sensitivty 203 Anion Gap 12 Estim Creat Clear Calc 117.2 Estimated GFR > 60 Random Glucose 93 Calcium 9.1 D Troponin I High Sens 362.1 H* 355.8 H* B-Natriuretic Peptide 1104 H Imaging Radiologist's Impressions: Impressions Chest X-Ray 01/01/24 13:15 IMPRESSION: Mild interstitial edema. Assessment and Plan (1) Atrial fibrillation: Status: Acute (2) Elevated troponin: Status: Acute Plan 63-year-old male with history of alcohol use disorder, severe obesity who is a current 15 cigarette per day smoker admitted for new onset atrial fibrillation with RVR # new onset atrial fibrillation with RVR -Started on cardizem drip per protocol in ED, wean as tolerated -initiate metoprolol 25 mg bid -CHADS2 Vasc score 0/1 -IV heparin due to elevated trops -echo -cardiac diet -cardiology consult -admit to med/tele #Elevated drops -likely demand in setting of rvr, ekg with t wave inversions lateral leads. no chest pain -trops 362-->355 -IV heparin per protocol, discussed with cardiology -echo -cardiology consult -med/tele #elevated bnp -clnically does not appear to be in chf exacerbation, however mild interstitial edema on cxr, possibly r/t afib rvr -gentle diuresis with lasix 20mg daily -check echo -cardiac diet -strict I&O -cardiology consult # alcohol use disorder -last drink Monday, will continue monitoring on CI but does not appear to require intervention at this time -p.o. thiamine and folic acid -declines addiction medicine consult # cigarette smoker -nicotine patch for an RT, cessation counseling # severe obesity with BMI greater than 38 -weight loss efforts encouraged DVT prophylaxis-heparin per protocol Full code Patient requires inpatient stay at least 2 midnights for management of new onset atrial fibrillation with RVR requiring IV Cardizem drip and transitioned to p.o. metoprolol with close cardiac monitoring as well as expert consultation. Quality Stroke Does the patient have a stroke diagnosis?: No VTE Prior VTE?: No VTE Risk Level:: Medical - moderate - high VTE Device Contraindication: Treatment Not Indicated VTE Drug Contraindication: N/A - Med Ordered
[2024-01-01] MEDS: Furosemide 20 MG/2 ML VIAL IVPUSH ×2 (16:53→17:34)
[2024-01-01] MEDS: Heparin Sodium,Porcine 5,000 UNIT/ML VIAL 4000 UNIT IVPUSH (16:54)
[2024-01-01 17:03] LABS: Cholesterol 153 mg/dL (<200); HDL Cholesterol 34 mg/dL (>40); LDL Cholesterol Calculated 96 mg/dL (<100); Triglycerides 117 mg/dL (<150)
[2024-01-01] MEDS: Heparin Sodium,Porcine/1/2NS 25,000 UNIT/250 ML IV.SOLN 10 UNIT IVCONT (17:10)
[2024-01-01] MEDS: Nicotine 21 MG PATCH.TD24 TRANSDERMA (17:14)
--- NOTE | 2024-01-01 17:30 | PC.NURSE ---
patient provider came down to bedside, requested patient to be titrated down on diltiazem, patient titrated down to 5mg/hr as requested, patient titrated in MAR.
[2024-01-01] MEDS: Metoprolol Tartrate 25 MG TABLET PO (17:34)
--- NOTE | 2024-01-01 18:17 | PC.NURSE ---
500 ml emptied out of patients urinal
--- NOTE | 2024-01-01 21:23 | PC.NURSE ---
late entry- assumed care of pt at 1900, pt a&ox4, respirations even and unlabored.pt denies pain at this time. pt intermittently in afib on tele 98-120, pt currently on a drip at this time per sep. pt voiding in urinal at bedside.
[2024-01-01 23:40] LABS: PTT Heparin Drip 46.5 SEC (53-77.9)
[2024-01-02] VITALS (9 sets, daily range): BP systolic 99–114; BP diastolic 69–85; PULSE 76–114; RESP 16–22; TEMP 36–36.8; O2SAT 92–95; BMI 34.6; BMI 35.3
[2024-01-02] MEDS: Heparin Sodium,Porcine 5,000 UNIT/ML VIAL 4500 UNIT IVPUSH (00:08)
[2024-01-02 02:12] LABS: Amphetamine Screen Urine Not Detected (Not Detect); Barbiturates, Urine Not Detected (Not Detect); Benzodiazepines Screen Urine POSITIVE (Not Detect); Buprenorphine Scr Not Detected (Not Detect); Cannabinoid Screen Urine POSITIVE (Not Detect); Cocaine Screen Urine Not Detected (Not Detect); Fentanyl, urine Not Detected (Not Detect); Methadone Screen, Urine Not Detected (Not Detect); Opiate Screen Urine Not Detected (Not Detect); Oxycodone Screen Urine Not Detected (Not Detect); Phencyclidine Screen Urine Not Detected (Not Detect)
[2024-01-02 06:23] LABS: MANUAL DIFF FLAG NO
[2024-01-02 06:31] LABS: Basophils Absolute Auto 0.1 X10*3/uL (0.0-0.2); Basophils Percent Auto 0.7 % (0-2); Eosinophils Absolute Auto 0.4 X10*3/uL (0.0-0.4); Eosinophils Percent Auto 3.4 % (0-4); Hematocrit 45.7 % (42.0-52.0); Hemoglobin 14.9 g/dl (14.0-18.0); Imm Gran Abs Auto 0.05 X10*3/uL (0.00-0.03); Imm Gran Pct Auto 0.5 % (0.0-0.4); Lymphocytes Absolute Auto 4.6 X10*3/uL (1.2-4.9); Lymphocytes Percent Auto 41.4 % (20-40); Mean Corpuscular HGB Conc 32.6 g/dl (31.0-36.0); Mean Corpuscular Hemoglobin 28.5 pg (27.0-33.0); Mean Corpuscular Volume 87.4 fL (80.0-98.0); Mean Platelet Volume 11.3 fL (9.4-12.4); Monocytes Absolute Auto 0.9 X10*3/uL (0.1-1.2); Monocytes Percent Auto 7.9 % (2-11); Neutrophils Absolute Auto 5.1 x10*3/uL (2.0-8.3); Neutrophils Percent Auto 46.1 % (45-73); Platelet Count 220 X10*3/uL (160-400); Red Blood Count 5.23 X10*6/uL (4.60-5.80); Red Cell Distribution Width 14.4 % (11.0-16.0)
[2024-01-02 06:39] LABS: INTERNATIONAL NORM RATIO 1.6 (0.9-1.1); Prothrombin Time 19.3 SEC (11.1-13.3)
[2024-01-02 06:46] LABS: Anion Gap 13 (12-20); Blood Urea Nitrogen 18 mg/dL (9-16); Calcium 8.9 mg/dL (8.4-10.2); Carbon Dioxide 23 mmol/L (22-29); Chloride 109 mmol/L (96-108); Creatinine Clr Calc Pharmacy 114.1; Estimated Glomerular Filt Rate > 60; Glucose Random 100 mg/dL (60-115); Potassium 3.8 mmol/L (3.3-5.1); Sodium 141 mmol/L (135-145)
--- NOTE | 2024-01-02 07:00 | CA_ITS ---
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 Severely reduced LV ejection fraction 25-30% 2. Severely dilated right ventricle 3. Severe biatrial enlargement 4. Normal RV systolic pressure but significantly elevated right atrial pressures 5. No gross pericardial effusion Findings Left Ventricle Normal left ventricular cavity size. There is moderately increased left ventricular wall thickness. The left ventricular systolic function is severely decreased. The visually estimated ejection fraction is between 25 30%. Diastolic function is indeterminate on the basis of available data. Right Ventricle Severely increased right ventricular cavity size. There is normal right ventricular systolic function. Atria The left atrium is severely dilated. There is no evidence of interatrial shunt. The right atrium is severely dilated. Aortic Valve The aortic valve was not well visualized. There is mild calcification of the aortic valve. There is mild thickening of the aortic valve. There is no aortic valve stenosis. There is no aortic valve regurgitation. bicuspid aortic valve can not be ruled out Mitral Valve There is mild anterior and posterior mitral leaflet thickening. There is mild mitral valve regurgitation. There is no mitral valve stenosis. Pulmonic Valve The pulmonic valve is likely normal. Tricuspid Valve Normal tricuspid valve structure. Significantly elevated right atrial pressure. There is no evidence of pulmonary hypertension. Great Vessels The aorta was not well visualized. The pulmonary artery was not well visualized. Venous The inferior vena cava is severely dilated and does not collapse with inspiration. Pericardium/Pleural There is no evidence of pericardial effusion. Prior Study Comparison No prior study available for comparison. Measurements Tricuspid Valve TR Pk Grad: 18.00 RA Press: 15.00 RVSP: 33.00 Updated in Other Vendor System with Status of Final Malcolm Krishnamurthy MD electronically signed on 01/02/2024 12:39:57 PM with status of Final
[2024-01-02] MEDS: Thiamine HCL 100 MG TABLET PO (09:36)
[2024-01-02] MEDS: Folic Acid 1 MG TABLET PO (09:36)
[2024-01-02] MEDS: Nicotine 21 MG PATCH.TD24 TRANSDERMA (09:37)
[2024-01-02] MEDS: Furosemide 20 MG/2 ML VIAL IVPUSH (09:37)
[2024-01-02] MEDS: Metoprolol Tartrate 25 MG TABLET PO ×2 (09:37→21:01)
[2024-01-02] MEDS: 0.9 % Sodium Chloride Flush 3 ML SYRINGE IVFLUSH ×4 (09:38→22:25)
--- NOTE | 2024-01-02 09:49 | MHC.CM.PN ---
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 He will complete HCP form here, naming his . PCP: Dr. Lobo DCP: home, self care.
--- NOTE | 2024-01-02 11:07 | P.CONCA_ITS ---
History of Present Illness History of Present Illness Date of Service: 01/02/24 Requesting physician: Mary Whitlock Consult reason: congestive heart failure Chief complaint: new onset afib rvr Narrative: I was consulted to see Delfino in cardiology consultation today for new onset atrial fibrillation as well as congestive heart failure. 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 He has been doing well on came in yesterday for a prostate biopsy due to elevated PSA and was noted to be in atrial fibrillation rapid ventricular response and was referred to the emergency room. Patient says he was in usual state of health until last when he started noticing increasing shortness of breath especially when he is at rest and when he is laying down he would feel like he is congested and has to cough. Patient said these shortness of breath with improved with 2 of 3 deep breaths. He went on to work over the weekend and felt okay. He did not have any significant palpitations or irregular heartbeat or fast heart rate symptoms. He denies any chest pain. He was referred to the ED and was convert rate control with IV Cardizem drip and subsequently rate got controlled but was noted to have elevated BNP as well as elevated troponins which were flat. He again denies any chest pain. Noticed a mi ankle and foot swelling but he denies himself noticing the same. He denies any symptoms of lightheadedness, syncope. Review of Systems 2 Constitutional: Constitutional: Denies body ache(s), Denies chills, Reports fatigue, Denies fever(s) and Reports lethargy Eyes: Eyes: Reports no additional eye complaints ENT: Reports system reviewed and no additional complaints, except as documented Cardiovascular: Cardiovascular: Denies chest pain, Denies lightheadedness, Denies Loss of Consciousness, Denies palpitations and Reports orthopnea Respiratory: Respiratory: Reports cough Gastrointestinal: Gastrointestinal: Reports no additional gastrointestinal complaints Genitourinary: Genitourinary: Reports no additional male genitourinary complaints Musculoskeletal: Musculoskeletal: Reports no additional musculoskeletal complaints Integumentary/Breasts: Skin/Breast: Reports system reviewed and no additional complaints, except as docu Neurologic: Reports system reviewed and no additional complaints, except as documented Psychiatric: Psychiatric: Reports no additional psychiatric complaints Endocrine: Endocrine: Reports fatigue and Denies palpitations [facility] Past Medical History Medical History Hay fever Surgical History Surgical History Hx of hand surgery History of cataract surgery Social History Social History Household Members: Spouse Household Members Other:: 2 Housing: House Do you presently have visiting nurse or other home services: No Alcohol intake: current Patient Tobacco Use Status: Current everyday Tobacco user Tobacco use type: Cigarette Cigarette Packs Per Day: 0.75 Cigarettes Per Day: 15.0 Smoked in Last 30 Days: No Patient Interested in Nicotine Replacement: Yes Patient Given Instructions on How to Stop Smoking: Yes Date Education Initiated: 01/02/24 Second Hand Smoke Exposure: No Use of substances other than those prescribed or required for medical reasons: Yes Substance Use Type: Marijuana Substance Use Frequency: Weekly Currently Displaying Signs/Symptoms of Drug Intoxication Withdrawal: No Any prior treatment program specific to substance use: No Have you been hit, kicked, punched, or otherwise hurt by someone within the past year? If so, by whom?: No Do you feel safe in your current relationship?: Yes Is there a partner from a previous relationship who is making you feel unsafe now?: No Are you made to feel afraid or neglected: No Advance Directives: No Advance Directives Information Provided: Yes Do you have a plan to hurt others: No Plan Recently lost weight without trying: No Eating poorly because of decreased appetite: No Nutrition Risks: No Nutritional Risk Poor oral hygiene: No service: No Meds Allergies Allergy/AdvReac Type Severity Reaction Status Date / Time No Known Allergies Allergy Verified 01/01/24 12:14 Active Medications: Current Medications Acetaminophen (Acetaminophen 325 Mg Tablet) 650 mg PO Q6H PRN PRN Reason: Pain, Mild (Pain Scale 1-3) Folic Acid (Folic Acid 1 Mg Tablet) 1 mg PO DAILY [facility] Last Admin: 01/02/24 09:36 Dose: 1 mg Furosemide (Furosemide 20 Mg/2 Ml Vial) 20 mg IVPUSH DAILY [facility]; Protocol Last Admin: 01/02/24 09:37 Dose: 20 mg Heparin Sodium (Porcine) (Heparin Sodium,Porcine 5,000 Unit/Ml Vial) 4,500 unit 40 unit/kg (4500 unit) IVPUSH PROTOCOL BOLUS PRN; Protocol PRN Reason: 40 unit/kg - Heparin Protocol Last Admin: 01/02/24 00:08 Dose: 4,500 unit Heparin Sodium (Porcine) (Heparin Sodium,Porcine 5,000 Unit/Ml Vial) 8,900 unit 80 unit/kg (8900 unit) IVPUSH PROTOCOL BOLUS PRN; Protocol PRN Reason: 80 unit/kg - Heparin Protocol Heparin Sodium/Sodium Chloride (Heparin Sodium,Porcine/1/2ns) 25,000 unit in 250 mls @ 0 mls/hr IVCONT .Q0M [facility]; Protocol Last Titration: 01/02/24 07:06 Dose: 8.94 units/kg/hr, 10 mls/hr Loratadine (Loratadine 10 Mg Tablet) 10 mg PO DAILY [facility] Last Admin: 01/02/24 09:39 Dose: Not Given Magnesium Hydroxide (Milk Of Magnesia 30 Ml Oral.Susp) 30 ml PO DAILY PRN PRN Reason: Constipation Metoprolol Tartrate (Metoprolol Tartrate 25 Mg Tablet) 25 mg PO BID [facility]; Protocol Last Admin: 01/02/24 09:37 Dose: 25 mg Nicotine (Nicotine 21 Mg Patch.Td24) 21 mg TRANSDERMA DAILY [facility] Last Admin: 01/02/24 09:37 Dose: 21 mg Ondansetron HCl (Ondansetron Hcl 4 Mg/2 Ml Vial) 4 mg IVPUSH Q8H PRN PRN Reason: Nausea and Vomiting Sodium Chloride (0.9 % Sodium Chloride Flush 3 Ml Syringe) 3 ml IVFLUSH QSHIFT [facility] Last Admin: 01/02/24 09:38 Dose: 3 ml Thiamine HCl (Thiamine Hcl 100 Mg Tablet) 100 mg PO DAILY [facility] Last Admin: 01/02/24 09:36 Dose: 100 mg Home Medications ?Medication ?Instructions ?Recorded ?Confirmed ?Last Taken ?Type cetirizine 10 mg chewable tablet 10 mg PO DAILY 09/06/23 01/01/24 12/31/23 History (Zyrtec) Physical Exam 2 Vital Signs: Vital Signs: Last Vital Signs Temp 96.9 F 01/02/24 07:41 Pulse 76 01/02/24 09:37 Resp 20 01/02/24 07:41 BP 114/76 01/02/24 09:37 Pulse Ox 94 01/02/24 07:41 O2 Del Method Room Air 01/02/24 07:41 BMI result Body Mass Index 35.3 Const: General: cooperative, well developed, alert, awake and in distress mild and respiratory Nutritional Appearance: obese Orientation/consciousness: p atient oriented x3 HEENT: Head: Yes normocephalic and Yes atraumatic Neck: Neck: Yes trachea midline, Yes supple and Yes JVD Resp: Effort & Inspection: normal respiratory effort Auscultation: clear to auscultation bilaterally Cardio: Jugular venous distension: JVD Rhythm: abnormal rhythm irregularly irregular Heart sounds: S1 normal heart sound present, S2 normal heart sound present, no click, no gallops, no murmurs and no rubs GI: Auscultation: normal bowel sounds Skin: General skin exam: no rashes or lesions noted Neuro: General: patient oriented x3 and no focal motor deficits Extrem: General: No clubbing, No cyanosis and Yes edema Objective Labs and Meds 01/02/24 06:07 01/02/24 06:07 Lab results: Laboratory Results - last 24 hr 01/01/24 01/01/24 01/01/24 12:58 14:11 14:46 WBC 10.0 10.5 RBC 5.34 5.51 Hgb 15.3 15.9 Hct 46.6 48.5 MCV 87.3 88.0 MCH 28.7 28.9 MCHC 32.8 32.8 RDW 14.4 14.5 Plt Count 223 197 MPV 10.9 11.1 Immature Gran % (Auto) 0.5 H Neut % (Auto) 55.9 Lymph % (Auto) 33.3 [place] % (Auto) 7.5 Eos % (Auto) 2.3 Baso % (Auto) 0.5 Lymph # (Auto) 3.3 [place] # (Auto) 0.8 Eos # (Auto) 0.2 Baso # (Auto) 0.1 Abs Immat Gran (auto) 0.05 H Absolute Neuts (auto) 5.6 Absolute Nucleated RBC 0.000 0.000 Nucleated RBC % (auto) 0.0 0.0 PT 19.4 H INR 1.6 H APTT 34.5 aPTT Heparin Protocol D-Dimer High Sensitivty 203 Sodium 141 Potassium 4.1 Chloride 109 H Carbon Dioxide 24 Anion Gap 12 BUN 14 Creatinine 0.86 Estim Creat Clear Calc 117.2 Estimated GFR > 60 Random Glucose 93 Calcium 9.1 D Troponin I High Sens 362.1 H* 355.8 H* B-Natriuretic Peptide 1104 H Triglycerides 117 Cholesterol 153 LDL Cholesterol, Calc 96 HDL Cholesterol 34 L Urine Opiates Screen Ur Buprenorphine Scrn Ur Oxycodone Screen Urine Methadone Screen Urine Fentanyl Screen Ur Barbiturates Screen Ur Phencyclidine Scrn Ur Amphetamines Screen U Benzodiazepines Scrn Urine Cocaine Screen U Marijuana (THC) Screen 01/01/24 01/01/24 01/02/24 17:00 23:24 01:08 WBC RBC Hgb Hct MCV MCH MCHC RDW Plt Count MPV Immature Gran % (Auto) Neut % (Auto) Lymph % (Auto) [place] % (Auto) Eos % (Auto) Baso % (Auto) Lymph # (Auto) [place] # (Auto) Eos # (Auto) Baso # (Auto) Abs Immat Gran (auto) Absolute Neuts (auto) Absolute Nucleated RBC Nucleated RBC % (auto) PT Cancelled INR Cancelled APTT aPTT Heparin Protocol Cancelled 46.5 L D-Dimer High Sensitivty Sodium Potassium Chloride Carbon Dioxide Anion Gap BUN Creatinine Estim Creat Clear Calc Estimated GFR Random Glucose Calcium Troponin I High Sens B-Natriuretic Peptide Triglycerides Cholesterol LDL Cholesterol, Calc HDL Cholesterol Urine Opiates Screen Not Detected Ur Buprenorphine Scrn Not Detected Ur Oxycodone Screen Not Detected Urine Methadone Screen Not Detected Urine Fentanyl Screen Not Detected Ur Barbiturates Screen Not Detected Ur Phencyclidine Scrn Not Detected Ur Amphetamines Screen Not Detected U Benzodiazepines Scrn POSITIVE H Urine Cocaine Screen Not Detected U Marijuana (THC) Screen POSITIVE H 01/02/24 06:07 WBC 11.0 H RBC 5.23 Hgb 14.9 Hct 45.7 MCV 87.4 MCH 28.5 MCHC 32.6 RDW 14.4 Plt Count 220 MPV 11.3 Immature Gran % (Auto) 0.5 H Neut % (Auto) 46.1 Lymph % (Auto) 41.4 H [place] % (Auto) 7.9 Eos % (Auto) 3.4 Baso % (Auto) 0.7 Lymph # (Auto) 4.6 [place] # (Auto) 0.9 Eos # (Auto) 0.4 Baso # (Auto) 0.1 Abs Immat Gran (auto) 0.05 H Absolute Neuts (auto) 5.1 Absolute Nucleated RBC 0.000 Nucleated RBC % (auto) 0.0 PT 19.3 H INR 1.6 H APTT aPTT Heparin Protocol 86.0 H D D-Dimer High Sensitivty Sodium 141 Potassium 3.8 Chloride 109 H Carbon Dioxide 23 Anion Gap 13 BUN 18 H Creatinine 0.85 Estim Creat Clear Calc 114.1 Estimated GFR > 60 Random Glucose 100 Calcium 8.9 Troponin I High Sens B-Natriuretic Peptide Triglycerides Cholesterol LDL Cholesterol, Calc HDL Cholesterol Urine Opiates Screen Ur Buprenorphine Scrn Ur Oxycodone Screen Urine Methadone Screen Urine Fentanyl Screen Ur Barbiturates Screen Ur Phencyclidine Scrn Ur Amphetamines Screen U Benzodiazepines Scrn Urine Cocaine Screen U Marijuana (THC) Screen Imaging Radiologist's impression: Impressions Chest X-Ray 01/01/24 13:15 IMPRESSION: Mild interstitial edema. Assessment and Plan (1) Acute congestive heart failure: Status: Acute Acute congestive heart failure in this middle-aged man most likely related to new onset atrial fibrillation with loss of AV synchrony possibly tachycardia mediated cardiomyopathy. Echocardiogram will be reviewed once available. Further treatment based on the findings. For now he still clinically appears to be short of breath and appears to be in heart failure with elevated jugular venous distention. Will start him on Lasix and intensify diuresis. Management of heart failure was discussed. Strict intake and output chart needs to be pursued. Follow-up BMP and BNP tomorrow. Continue rate control strategy. If he has significant LV systolic dysfunction will require more urgent rhythm control approach and starting of vasodilators therapy for neurohormonal modulation. This was discussed with him. Management was discussed. Most likely will require outpatient sleep study and ischemic workup. Elevated troponins are most suggestive of subendocardial ischemia related to CHF and new onset atrial fibrillation unlikely to represent acute coronary syndrome or NSTEMI. (2) Atrial fibrillation: Status: Acute Atrial fibrillation new onset with rapid response yesterday. Rate is not controlled. Continue metoprolol for rate control which can be also use for neurohormonal modulation. Switch to oral anticoagulation therapy with Eliquis. Will require outpatient workup for sleep apnea. Given his age will pursue rhythm control approach, timing will depend on the findings of the echocardiogram. Will continue to follow with you Procedures Date of Service Date of Service: 01/02/24
--- NOTE | 2024-01-02 12:04 | P.PNIM_ITS ---
Subjective Subjective Date of Service: 01/02/24 Interval History: Being followed for atrial fibrillation with RVR and shortness of breath. Complaining of persistent shortness of breath denies chest pain, no palpitations, no lightheadedness or dizziness. No fevers, no chills, tolerating diet. Review of Systems All other system reviewed and are negative Physical Exam 2 Vital Signs: Vital Signs: Last Vital Signs Temp 96.9 F 01/02/24 11:25 Pulse 98 01/02/24 11:25 Resp 20 01/02/24 11:25 BP 108/69 01/02/24 11:25 Pulse Ox 95 01/02/24 11:25 O2 Del Method Room Air 01/02/24 11:25 BMI result Body Mass Index 35.3 Const: Other: General awake alert x3 no acute distress Neck + JVD. CVS irregular rate rhythm, Respiratory lungs clear to auscultation, no respiratory distress, no wheeze, no rhonchi. Gastrointestinal abdomen soft, non tender, bowel sounds audible, no guarding , no rigidity. Extremities trace edema. Neuro non focal , no tremors, speech clear. Skin no rash Appropriate affect Objective Data Active Medications Acetaminophen (Acetaminophen 325 Mg Tablet) 650 mg PO Q6H PRN PRN Reason: Pain, Mild (Pain Scale 1-3) Apixaban (Apixaban 5 Mg Tablet) 5 mg PO BID [facility] Folic Acid (Folic Acid 1 Mg Tablet) 1 mg PO DAILY [facility] Last Admin: 01/02/24 09:36 Dose: 1 mg Documented By: MAMIE Furosemide (Furosemide 20 Mg/2 Ml Vial) 40 mg IVPUSH DAILY [facility]; Protocol Loratadine (Loratadine 10 Mg Tablet) 10 mg PO DAILY [facility] Last Admin: 01/02/24 09:39 Dose: Not Given Documented By: MAMIE Non-Admin Reason: Patient Refused Magnesium Hydroxide (Milk Of Magnesia 30 Ml Oral.Susp) 30 ml PO DAILY PRN PRN Reason: Constipation Metoprolol Tartrate (Metoprolol Tartrate 25 Mg Tablet) 25 mg PO BID [facility]; Protocol Last Admin: 01/02/24 09:37 Dose: 25 mg Documented By: MAMIE Nicotine (Nicotine 21 Mg Patch.Td24) 21 mg TRANSDERMA DAILY [facility] Last Admin: 01/02/24 09:37 Dose: 21 mg Documented By: MAMIE Ondansetron HCl (Ondansetron Hcl 4 Mg/2 Ml Vial) 4 mg IVPUSH Q8H PRN PRN Reason: Nausea and Vomiting Sodium Chloride (0.9 % Sodium Chloride Flush 3 Ml Syringe) 3 ml IVFLUSH QSHIFT [facility] Last Admin: 01/02/24 09:38 Dose: 3 ml Documented By: MAMIE Thiamine HCl (Thiamine Hcl 100 Mg Tablet) 100 mg PO DAILY [facility] Last Admin: 01/02/24 09:36 Dose: 100 mg Documented By: MAMIE Labs 01/02/24 06:07 01/02/24 06:07 Labs: Laboratory Results - last 24 hr 01/01/24 01/01/24 01/01/24 12:58 14:11 14:46 MCV 87.3 88.0 MCH 28.7 28.9 MCHC 32.8 32.8 RDW 14.4 14.5 Plt Count 223 197 MPV 10.9 11.1 Immature Gran % (Auto) 0.5 H Neut % (Auto) 55.9 Lymph % (Auto) 33.3 [place] % (Auto) 7.5 Eos % (Auto) 2.3 Baso % (Auto) 0.5 Lymph # (Auto) 3.3 [place] # (Auto) 0.8 Eos # (Auto) 0.2 Baso # (Auto) 0.1 Abs Immat Gran (auto) 0.05 H Absolute Neuts (auto) 5.6 Absolute Nucleated RBC 0.000 0.000 Nucleated RBC % (auto) 0.0 0.0 PT 19.4 H INR 1.6 H APTT 34.5 aPTT Heparin Protocol D-Dimer High Sensitivty 203 Anion Gap 12 Estim Creat Clear Calc 117.2 Estimated GFR > 60 Random Glucose 93 Calcium 9.1 D Troponin I High Sens 362.1 H* 355.8 H* B-Natriuretic Peptide 1104 H Triglycerides 117 Cholesterol 153 LDL Cholesterol, Calc 96 HDL Cholesterol 34 L Urine Opiates Screen Ur Buprenorphine Scrn Ur Oxycodone Screen Urine Methadone Screen Urine Fentanyl Screen Ur Barbiturates Screen Ur Phencyclidine Scrn Ur Amphetamines Screen U Benzodiazepines Scrn Urine Cocaine Screen U Marijuana (THC) Screen 01/01/24 01/01/24 01/02/24 17:00 23:24 01:08 MCV MCH MCHC RDW Plt Count MPV Immature Gran % (Auto) Neut % (Auto) Lymph % (Auto) [place] % (Auto) Eos % (Auto) Baso % (Auto) Lymph # (Auto) [place] # (Auto) Eos # (Auto) Baso # (Auto) Abs Immat Gran (auto) Absolute Neuts (auto) Absolute Nucleated RBC Nucleated RBC % (auto) PT Cancelled INR Cancelled APTT aPTT Heparin Protocol Cancelled 46.5 L D-Dimer High Sensitivty Anion Gap Estim Creat Clear Calc Estimated GFR Random Glucose Calcium Troponin I High Sens B-Natriuretic Peptide Triglycerides Cholesterol LDL Cholesterol, Calc HDL Cholesterol Urine Opiates Screen Not Detected Ur Buprenorphine Scrn Not Detected Ur Oxycodone Screen Not Detected Urine Methadone Screen Not Detected Urine Fentanyl Screen Not Detected Ur Barbiturates Screen Not Detected Ur Phencyclidine Scrn Not Detected Ur Amphetamines Screen Not Detected U Benzodiazepines Scrn POSITIVE H Urine Cocaine Screen Not Detected U Marijuana (THC) Screen POSITIVE H 01/02/24 06:07 MCV 87.4 MCH 28.5 MCHC 32.6 RDW 14.4 Plt Count 220 MPV 11.3 Immature Gran % (Auto) 0.5 H Neut % (Auto) 46.1 Lymph % (Auto) 41.4 H [place] % (Auto) 7.9 Eos % (Auto) 3.4 Baso % (Auto) 0.7 Lymph # (Auto) 4.6 [place] # (Auto) 0.9 Eos # (Auto) 0.4 Baso # (Auto) 0.1 Abs Immat Gran (auto) 0.05 H Absolute Neuts (auto) 5.1 Absolute Nucleated RBC 0.000 Nucleated RBC % (auto) 0.0 PT 19.3 H INR 1.6 H APTT aPTT Heparin Protocol 86.0 H D D-Dimer High Sensitivty Anion Gap 13 Estim Creat Clear Calc 114.1 Estimated GFR > 60 Random Glucose 100 Calcium 8.9 Troponin I High Sens B-Natriuretic Peptide Triglycerides Cholesterol LDL Cholesterol, Calc HDL Cholesterol Urine Opiates Screen Ur Buprenorphine Scrn Ur Oxycodone Screen Urine Methadone Screen Urine Fentanyl Screen Ur Barbiturates Screen Ur Phencyclidine Scrn Ur Amphetamines Screen U Benzodiazepines Scrn Urine Cocaine Screen U Marijuana (THC) Screen Assessment and Plan (1) Acute congestive heart failure: Status: Acute (2) Elevated troponin: Status: Acute (3) CHF (congestive heart failure): Status: Acute (4) Atrial fibrillation: Status: Acute Plan 63-year-old male with history of alcohol use disorder, severe obesity who is a current 15 cigarette per day smoker admitted for new onset atrial fibrillation with RVR # new onset atrial fibrillation with RVR -persistent atrial fibrillation heart rate better controlled, continue metoprolol 25 mg bid -CHADS2 Vasc score 0/1 -echo obtained report pending Case discussed with Cardiology they recommend to continue beta-blockers and add Eliquis b.i.d. If noted to have significant LV dysfunction he will undergo cardioversion. #Elevated troponins -likely demand in setting of rvr, no NSTEMI, ekg with t wave inversions lateral leads. no chest pain -trops elevated but flat 362-->355, -dc IV heparin # acute congestive heart failure likely due to atrial fibrillation Persistent shortness of breath, elevated bnp Continue IV Lasix 40 mg b.i.d. chest x-ray showed mild interstitial edema Monitor I/O shows, daily weight BMP and BNP # alcohol use disorder -last drink Monday, will continue monitoring on CI but does not appear to require intervention at this time -p.o. thiamine and folic acid -declines addiction medicine consult # cigarette smoker -nicotine patch , cessation counseling # severe obesity with BMI greater than 38 -weight loss efforts encouraged DVT prophylaxis-eliquis Full code Patient requires continued inpatient stay for management of new onset atrial fibrillation with RVR requiring close cardiac monitoring as well as expert consultation. Quality Stroke Does the patient have a stroke diagnosis?: No VTE Prior VTE?: No VTE Risk Level:: Medical - moderate - high VTE Device Contraindication: Treatment Not Indicated VTE Drug Contraindication: N/A - Med Ordered
[2024-01-02] MEDS: Apixaban 5 MG TABLET PO ×2 (12:32→21:01)
[2024-01-02] MEDS: Furosemide 20 MG/2 ML VIAL 40 MG IVPUSH ×2 (12:32→17:10)
[2024-01-02] MEDS: Docusate Sodium 100 MG CAPSULE 200 MG PO (17:10)
[2024-01-03] VITALS (11 sets, daily range): BP systolic 93–132; BP diastolic 65–88; PULSE 80–103; RESP 15–20; TEMP 36–36.8; O2SAT 92–98; BMI 34.6
[2024-01-03 06:19] LABS: Anion Gap 15 (12-20); Blood Urea Nitrogen 20 mg/dL (9-16); Calcium 8.7 mg/dL (8.4-10.2); Carbon Dioxide 26 mmol/L (22-29); Chloride 108 mmol/L (96-108); Creatinine Clr Calc Pharmacy 106.7; Estimated Glomerular Filt Rate > 60; Glucose Random 108 mg/dL (60-115); Potassium 3.7 mmol/L (3.3-5.1); Sodium 145 mmol/L (135-145)
[2024-01-03 06:31] LABS: B Type Natriuretic Peptide 1257 pg/mL (<100)
--- NOTE | 2024-01-03 07:58 | CA_ITS ---
Transesophageal Echocardiogram Patient (Last, First, Middle): Lennox Marrero R Gender: Male Date of : 1960 Age: 63 Procedure Date: 01/03/2024 Procedure Type: Transesophageal [place]ogram [place] [facility] [place]: 177.8 cm Weight: 109.32 kg BSA: 2.26 m2 Heart Rate: bpm BP: 126 / 98 mmHg Isolation Washer: SB Referring MD: Malcolm Krishnamurthy MD Electrical Logging Engineer: Malcolm Krishnamurthy MD Symptoms: Pre cardioversion Conclusion: ??? 1. Large thrombus in the left atrial appendage 2. Dilated left ventricle with severely reduced LV ejection fraction 20-25% next 3. Biatrial enlargement 4. Mild mitral regurgitation 5. No intracardiac shunting 6. Mi atherosclerotic changes noted in the ascending, descending thoracic aorta Findings Procedure Information Consent was obtained prior to the procedure. Pre SONIDO oral cavity was checked and revealed mild overcrowding. The adult 3D probe was passed with no difficulty. Left Ventricle Moderately increased left ventricular cavity size. There is mildly increased left ventricular wall thickness. The left ventricular systolic function is severely decreased. The visually estimated ejection fraction is between 20 25%. There is severe global hypokinesis. Diastolic function is indeterminate on the basis of available data. There is no evidence of a thrombus in the left ventricle. Right Ventricle Moderately increased right ventricular cavity size. There is mildly decreased right ventricular systolic function. Atria The left atrium is severely dilated. The atrial septum has a dumbell appearance. There is no evidence of interatrial shunt. There is no evidence of a patent foramen ovale. There is a large thrombus seen in the left atrial appendage. Severe spontaneous echo contrast is seen in the left atrial cavity and left atrial appendage. The left upper, lower and right upper and right lower pulmonary injury normally into the left atrium. The right atrium is severely dilated. Severe spontaneous echo contrast is seen in the right atrial cavity. The IVC appears to be dilated and SVC drain normally into the right atrium. The right atrial appendage was free of any thrombus. Aortic Valve There is mild calcification of the aortic valve. There is mild thickening of the aortic valve. There is no aortic valve stenosis. There is no evidence of a mass on the aortic valve. There is no aortic valve regurgitation. Mitral Valve There is mild anterior and posterior mitral leaflet thickening. There is mild mitral valve regurgitation. There is no mitral valve stenosis. There is no mass noted on the mitral valve. Pulmonic Valve The pulmonic valve is likely normal. There is no mass noted on the pulmonic valve. Tricuspid Valve Normal tricuspid valve structure. There is mild tricuspid valve regurgitation. There is no evidence of a mass on the tricuspid valve. Great Vessels All visible segments of the aorta are normal in size. Small plaque is seen in the sino tubular ridge, ascending aorta, and descending thoracic aorta. The visualized portions of the pulmonary artery and branches are normal. Venous The inferior vena cava is moderately dilated. Pericardium/Pleural There is no evidence of pericardial effusion. Updated by Malcolm Krishnamurthy on 02:59 PM with Status of Final Malcolm Krishnamurthy MD electronically signed on 01/03/2024 2:59:07 PM with status of Final
[2024-01-03] MEDS: 0.9 % Sodium Chloride Flush 3 ML SYRINGE IVFLUSH ×3 (08:40→19:55)
[2024-01-03] MEDS: Docusate Sodium 100 MG CAPSULE 200 MG PO (08:41)
[2024-01-03] MEDS: Furosemide 20 MG/2 ML VIAL 40 MG IVPUSH ×2 (08:41→17:09)
[2024-01-03] MEDS: Apixaban 5 MG TABLET PO ×2 (08:41→19:54)
[2024-01-03] MEDS: Folic Acid 1 MG TABLET PO (08:41)
[2024-01-03] MEDS: Metoprolol Tartrate 25 MG TABLET PO ×2 (08:41→19:54)
[2024-01-03] MEDS: Loratadine 10 MG TABLET PO (08:41)
[2024-01-03] MEDS: Thiamine HCL 100 MG TABLET PO (08:41)
[2024-01-03] MEDS: Nicotine 21 MG PATCH.TD24 TRANSDERMA (08:46)
--- NOTE | 2024-01-03 09:05 | PM.PNCARD ---
Subjective Subjective Date of Service: 01/03/24 Principal diagnosis: CHF, atrial fibrillation Interval history: Patient says he still short of breath laying down. Has had negative balance of about 2400 cc. Heart rate is better controlled. Echocardiogram shows severe LV systolic dysfunction. Says biatrial enlargement as well as RV enlargement. Possibility of underlying sleep apnea needs to be pursued. Blood pressure is well controlled. Remains in atrial fibrillation. Review of Systems Constitutional: Reports no additional constitutional complaints Eyes: Reports no additional eye complaints Cardiovascular: Denies chest pain, Denies lightheadedness, Denies palpitations and Reports orthopnea Respiratory: Reports no additional respiratory complaints Genitourinary: Reports no additional male genitourinary complaints Musculoskeletal: Reports no additional musculoskeletal complaints Skin/Breast: Reports system reviewed and no additional complaints, except as docu Endocrine: Denies palpitations Physical Exam Vital Signs: Last Vital Signs Temp 97.0 F 01/03/24 07:23 Pulse 84 01/03/24 07:23 Resp 20 01/03/24 07:23 BP 126/80 01/03/24 07:23 Pulse Ox 94 01/03/24 07:23 O2 Del Method Room Air 01/03/24 07:23 BMI result Body Mass Index 34.6 Const General: cooperative, comfortable, alert and awake Nutritional Appearance: obese Orientation/consciousness: patient oriented x3 Neck Neck: Yes trachea midline, Yes supple and Yes JVD Resp Effort & Inspection: normal respiratory effort Auscultation: clear to auscultation bilaterally Cardio Jugular venous distension: JVD Rhythm: abnormal rhythm irregularly irregular Heart sounds: S1 normal heart sound present and S2 normal heart sound present GI Auscultation: normal bowel sounds Neuro General: patient oriented x3 and no focal motor deficits Extrem General: No clubbing, No cyanosis, No edema and Yes pedal edema Objective Labs and Meds 01/02/24 06:07 01/03/24 05:45 Lab results: Laboratory Results - last 24 hr 01/03/24 01/03/24 05:44 05:45 Sodium 145 Potassium 3.7 Chloride 108 Carbon Dioxide 26 Anion Gap 15 BUN 20 H Creatinine 0.90 Estim Creat Clear Calc 106.7 Estimated GFR > 60 Random Glucose 108 Calcium 8.7 B-Natriuretic Peptide 1257 H Progress Note: A&P Assessment and plan (1) Acute congestive heart failure: Status: Acute Assessment and Plan: Acute congestive heart failure with severe LV systolic dysfunction noted on echocardiogram most likely suggestive of tachycardia mediated cardiomyopathy although ischemic etiology needs to be ruled out. Possibly underlying significant sleep apnea also playing a part in it. Will need workup as an outpatient. Clinically still short of breath. Continue IV diuresis. Strict intake and output chart needs to be pursued continue to monitor BMP and BNP. Continue metoprolol for neurohormonal modulation and add Entresto to his regimen. Continue close hemodynamic monitoring. Discussed management with him in details. Pursue rhythm control approach, see below (2) Atrial fibrillation: Status: Acute Assessment and Plan: Atrial fibrillation with adequate rate control. Continue metoprolol therapy although I think he needs to pursue rhythm control approach. Will pursue SONIDO guided synchronized cardioversion. Discussed with him the procedure details including risks, benefits, alternatives and indication for it. He understands agrees. Will schedule him for later today. Most likely given his biatrial enlargement will require antiarrhythmic drug support. Needs workup for sleep apnea which will be pursued as outpatient. Other possibilities such as hemochromatosis and/or amyloidosis will be pursued as well. Will follow with you Time Spent With Patient Time: Total time managing care of this patient today ____ minutes. Progress Note: Quality Stroke Does the patient have a stroke diagnosis?: No Procedures Date of Service Date of Service: 01/03/24
--- NOTE | 2024-01-03 10:55 | HO.PM.IMPN ---
Subjective Subjective Date of Service: 01/03/24 Interval History: Being followed for atrial fibrillation with RVR and CHF Complaining of persistent shortness of breath this morning denies chest pain, no palpitations, no lightheadedness, no dizziness, no acute events overnight remains in atrial fibrillation with stable ventricular rate. Review of Systems All other system reviewed and are negative Physical Exam Vital Signs: Vital Signs: Last Vital Signs Temp 97.0 F 01/03/24 07:23 Pulse 84 01/03/24 07:23 Resp 20 01/03/24 07:23 BP 126/80 01/03/24 07:23 Pulse Ox 94 01/03/24 07:23 O2 Del Method Room Air 01/03/24 07:23 BMI result Body Mass Index 34.6 Const: Other: General awake alert x3 no acute distress Neck + JVD. CVS irregular rate rhythm, Respiratory lungs clear to auscultation, no respiratory distress, no wheeze, no crackles Gastrointestinal abdomen soft, non tender, bowel sounds audible, no guarding , no rigidity. Extremities no edema. Neuro non focal , no tremors, speech clear. Skin no rash Appropriate affect Objective Data Active Medications Acetaminophen (Acetaminophen 325 Mg Tablet) 650 mg PO Q6H PRN PRN Reason: Pain, Mild (Pain Scale 1-3) Apixaban (Apixaban 5 Mg Tablet) 5 mg PO BID [facility] Last Admin: 01/03/24 08:41 Dose: 5 mg Documented By: MAYA Docusate Sodium (Docusate Sodium 100 Mg Capsule) 200 mg PO DAILY [facility] Last Admin: 01/03/24 08:41 Dose: 200 mg Documented By: MAYA Folic Acid (Folic Acid 1 Mg Tablet) 1 mg PO DAILY [facility] Last Admin: 01/03/24 08:41 Dose: 1 mg Documented By: MAYA Furosemide (Furosemide 20 Mg/2 Ml Vial) 40 mg IVPUSH BID@0900,1800 [facility]; Protocol Last Admin: 01/03/24 08:41 Dose: 40 mg Documented By: MAYA Loratadine (Loratadine 10 Mg Tablet) 10 mg PO DAILY [facility] Last Admin: 01/03/24 08:41 Dose: 10 mg Documented By: MAYA Magnesium Hydroxide (Milk Of Magnesia 30 Ml Oral.Susp) 30 ml PO DAILY PRN PRN Reason: Constipation Metoprolol Tartrate (Metoprolol Tartrate 25 Mg Tablet) 25 mg PO BID [facility]; Protocol Last Admin: 01/03/24 08:41 Dose: 25 mg Documented By: MAYA Nicotine (Nicotine 21 Mg Patch.Td24) 21 mg TRANSDERMA DAILY [facility] Last Admin: 01/03/24 08:46 Dose: 21 mg Documented By: MAYA Ondansetron HCl (Ondansetron Hcl 4 Mg/2 Ml Vial) 4 mg IVPUSH Q8H PRN PRN Reason: Nausea and Vomiting Sodium Chloride (0.9 % Sodium Chloride Flush 3 Ml Syringe) 3 ml IVFLUSH QSHIFT [facility] Last Admin: 01/03/24 08:40 Dose: 3 ml Documented By: MAYA Thiamine HCl (Thiamine Hcl 100 Mg Tablet) 100 mg PO DAILY [facility] Last Admin: 01/03/24 08:41 Dose: 100 mg Documented By: MAYA Labs 01/02/24 06:07 01/03/24 05:45 Labs: Laboratory Results - last 24 hr 01/03/24 01/03/24 05:44 05:45 Anion Gap 15 Estim Creat Clear Calc 106.7 Estimated GFR > 60 Random Glucose 108 Calcium 8.7 B-Natriuretic Peptide 1257 H Assessment and Plan (1) Acute congestive heart failure: Status: Acute (2) Elevated troponin: Status: Acute (3) CHF (congestive heart failure): Status: Acute (4) Atrial fibrillation: Status: Acute Plan 63-year-old male with history of alcohol use disorder, severe obesity who is a current 15 cigarette per day smoker admitted for new onset atrial fibrillation with RVR # new onset atrial fibrillation with RVR -persistent atrial fibrillation heart rate better controlled -CHADS2 Vasc score 0/1 -echo showed EF 25-30%, severely dilated right ventricle, severe biatrial enlargement, no evidence of intra-atrial shunt, indeterminate diastolic function. continue metoprolol 25 b.i.d., Eliquis b.i.d. NPO for cardioversion this afternoon. #Elevated troponins -likely demand in setting of rvr, no NSTEMI, ekg with t wave inversions lateral leads. no chest pain -trops elevated but flat 362-->355, # Acute congestive heart failure with decreased EF Severe LV dysfunction question related to atrial fibrillation versus ischemia versus underlying sleep apnea Persistent shortness of breath,and elevated bnp Continue IV Lasix 40 mg b.i.d., Entresto low-dose added as per Cardiology chest x-ray showed mild interstitial edema > 2.4 L negative, Monitor I/O shows, daily weight BMP and BNP Will need outpatient cardiology follow-up to rule out ischemia # alcohol use disorder -no withdrawal symptoms,ciwa 1 -p.o. thiamine and folic acid -declines addiction medicine consult # cigarette smoker -nicotine patch , counseling done # class 1 obesity -weight loss efforts encouraged DVT prophylaxis-eliquis Full code Patient requires continued inpatient stay for management of new onset atrial fibrillation with RVR /CHF on IV diuretics, requiring close cardiac monitoring as well as expert consultation. Quality Stroke Does the patient have a stroke diagnosis?: No VTE Prior VTE?: No VTE Risk Level:: Medical - moderate - high VTE Device Contraindication: Treatment Not Indicated VTE Drug Contraindication: N/A - Med Ordered
--- NOTE | 2024-01-03 11:42 | HO.ANESPROP2 ---
HPI - Anesthesia Eval Consult details Narrative: 63 yo male patient for SONIDO, cardioversion PMFSH Active Problems Active Problems: All Active Problems (Updated 01/02/24 @ 11:12 by Malcolm Krishnamurthy MD) Acute congestive heart failure (Acute) Elevated troponin (Acute) CHF (congestive heart failure) (Acute) Atrial fibrillation (Acute) History of prostate cancer (Acute) Elevated PSA (Acute) Past Medical History Medical History Hay fever Family History Family history of problems with anesthesia: No Surgical History Surgical History Hx of hand surgery History of cataract surgery History of Problems with Anesthesia: No Social History Social History Household Members: Spouse Household Members Other:: 2 Housing: House Do you presently have visiting nurse or other home services: No Alcohol intake: current Patient Tobacco Use Status: Current everyday Tobacco user Tobacco use type: Cigarette Cigarette Packs Per Day: 0.5 Cigarettes Per Day: 10.0 Smoked in Last 30 Days: No Patient Interested in Nicotine Replacement: Yes Patient Given Instructions on How to Stop Smoking: Yes Date Education Initiated: 01/02/24 Second Hand Smoke Exposure: No Use of substances other than those prescribed or required for medical reasons: Yes Substance Use Type: Marijuana Substance Use Frequency: Weekly Currently Displaying Signs/Symptoms of Drug Intoxication Withdrawal: No Any prior treatment program specific to substance use: No Have you been hit, kicked, punched, or otherwise hurt by someone within the past year? If so, by whom?: No Do you feel safe in your current relationship?: Yes Is there a partner from a previous relationship who is making you feel unsafe now?: No Are you made to feel afraid or neglected: No Are you DNR?: No Advance Directives: No Advance Directives Information Provided: Yes Do you have a plan to hurt others: No Plan Recently lost weight without trying: No Eating poorly because of decreased appetite: No Nutrition Risks: No Nutritional Risk Poor oral hygiene: No service: No Meds Allergies Allergy/AdvReac Type Severity Reaction Status Date / Time No Known Allergies Allergy Verified 01/01/24 12:14 Active Medications: Current Medications Acetaminophen (Acetaminophen 325 Mg Tablet) 650 mg PO Q6H PRN PRN Reason: Pain, Mild (Pain Scale 1-3) Apixaban (Apixaban 5 Mg Tablet) 5 mg PO BID [facility] Last Admin: 01/03/24 08:41 Dose: 5 mg Docusate Sodium (Docusate Sodium 100 Mg Capsule) 200 mg PO DAILY [facility] Last Admin: 01/03/24 08:41 Dose: 200 mg Folic Acid (Folic Acid 1 Mg Tablet) 1 mg PO DAILY [facility] Last Admin: 01/03/24 08:41 Dose: 1 mg Furosemide (Furosemide 20 Mg/2 Ml Vial) 40 mg IVPUSH BID@0900,1800 [facility]; Protocol Last Admin: 01/03/24 08:41 Dose: 40 mg Loratadine (Loratadine 10 Mg Tablet) 10 mg PO DAILY [facility] Last Admin: 01/03/24 08:41 Dose: 10 mg Magnesium Hydroxide (Milk Of Magnesia 30 Ml Oral.Susp) 30 ml PO DAILY PRN PRN Reason: Constipation Metoprolol Tartrate (Metoprolol Tartrate 25 Mg Tablet) 25 mg PO BID [facility]; Protocol Last Admin: 01/03/24 08:41 Dose: 25 mg Nicotine (Nicotine 21 Mg Patch.Td24) 21 mg TRANSDERMA DAILY [facility] Last Admin: 01/03/24 08:46 Dose: 21 mg Ondansetron HCl (Ondansetron Hcl 4 Mg/2 Ml Vial) 4 mg IVPUSH Q8H PRN PRN Reason: Nausea and Vomiting Potassium Chloride (Potassium Chloride Er 20 Meq Tab.Er.Prt) 20 meq PO DAILY [facility] Sacubitril/Valsartan (Sacubitril/Valsartan 1 Tab Tablet) 1 tab PO BID [facility]; Protocol Sodium Chloride (0.9 % Sodium Chloride Flush 3 Ml Syringe) 3 ml IVFLUSH QSHIFT [facility] Last Admin: 01/03/24 08:40 Dose: 3 ml Thiamine HCl (Thiamine Hcl 100 Mg Tablet) 100 mg PO DAILY [facility] Last Admin: 01/03/24 08:41 Dose: 100 mg Home Medications ?Medication ?Instructions ?Recorded ?Confirmed ?Last Taken ?Type cetirizine 10 mg chewable tablet 10 mg PO DAILY 09/06/23 01/01/24 12/31/23 History (Zyrtec) Exam Height,Weight and Vital Signs: Height 5 ft 10 in Weight 109.5 kg Last Vital Signs Temp 98.2 F 06/05/24 11:14 Pulse 96 01/03/24 11:14 Resp 18 01/03/24 11:14 BP 123/87 01/03/24 11:14 Pulse Ox 97 01/03/24 11:14 O2 Del Method Room Air 01/03/24 11:14 Pertinent Lab Results Pertinent Lab Results: Laboratory Tests 01/01/24 01/01/24 01/01/24 12:58 14:11 14:46 WBC 10.0 10.5 RBC 5.34 5.51 Hgb 15.3 15.9 Hct 46.6 48.5 MCV 87.3 88.0 MCH 28.7 28.9 MCHC 32.8 32.8 RDW 14.4 14.5 Plt Count 223 197 MPV 10.9 11.1 Immature Gran % (Auto) 0.5 H Neut % (Auto) 55.9 Lymph % (Auto) 33.3 Terry % (Auto) 7.5 Eos % (Auto) 2.3 Baso % (Auto) 0.5 Lymph # (Auto) 3.3 Terry # (Auto) 0.8 Eos # (Auto) 0.2 Baso # (Auto) 0.1 Abs Immat Gran (auto) 0.05 H Absolute Neuts (auto) 5.6 Absolute Nucleated RBC 0.000 0.000 Nucleated RBC % (auto) 0.0 0.0 PT 19.4 H INR 1.6 H APTT 34.5 aPTT Heparin Protocol D-Dimer High Sensitivty 203 Sodium 141 Potassium 4.1 Chloride 109 H Carbon Dioxide 24 Anion Gap 12 BUN 14 Creatinine 0.86 Estim Creat Clear Calc 117.2 Estimated GFR > 60 Random Glucose 93 Calcium 9.1 D Troponin I High Sens 362.1 H* 355.8 H* B-Natriuretic Peptide 1104 H Triglycerides 117 Cholesterol 153 LDL Cholesterol, Calc 96 HDL Cholesterol 34 L Urine Opiates Screen Ur Buprenorphine Scrn Ur Oxycodone Screen Urine Methadone Screen Urine Fentanyl Screen Ur Barbiturates Screen Ur Phencyclidine Scrn Ur Amphetamines Screen U Benzodiazepines Scrn Urine Cocaine Screen U Marijuana (THC) Screen 01/01/24 01/01/24 01/02/24 17:00 23:24 01:08 WBC RBC Hgb Hct MCV MCH MCHC RDW Plt Count MPV Immature Gran % (Auto) Neut % (Auto) Lymph % (Auto) Terry % (Auto) Eos % (Auto) Baso % (Auto) Lymph # (Auto) Terry # (Auto) Eos # (Auto) Baso # (Auto) Abs Immat Gran (auto) Absolute Neuts (auto) Absolute Nucleated RBC Nucleated RBC % (auto) PT Cancelled INR Cancelled APTT aPTT Heparin Protocol Cancelled 46.5 L D-Dimer High Sensitivty Sodium Potassium Chloride Carbon Dioxide Anion Gap BUN Creatinine Estim Creat Clear Calc Estimated GFR Random Glucose Calcium Troponin I High Sens B-Natriuretic Peptide Triglycerides Cholesterol LDL Cholesterol, Calc HDL Cholesterol Urine Opiates Screen Not Detected Ur Buprenorphine Scrn Not Detected Ur Oxycodone Screen Not Detected Urine Methadone Screen Not Detected Urine Fentanyl Screen Not Detected Ur Barbiturates Screen Not Detected Ur Phencyclidine Scrn Not Detected Ur Amphetamines Screen Not Detected U Benzodiazepines Scrn POSITIVE H Urine Cocaine Screen Not Detected U Marijuana (THC) Screen POSITIVE H 01/02/24 01/03/24 01/03/24 06:07 05:44 05:45 WBC 11.0 H RBC 5.23 Hgb 14.9 Hct 45.7 MCV 87.4 MCH 28.5 MCHC 32.6 RDW 14.4 Plt Count 220 MPV 11.3 Immature Gran % (Auto) 0.5 H Neut % (Auto) 46.1 Lymph % (Auto) 41.4 H Terry % (Auto) 7.9 Eos % (Auto) 3.4 Baso % (Auto) 0.7 Lymph # (Auto) 4.6 Terry # (Auto) 0.9 Eos # (Auto) 0.4 Baso # (Auto) 0.1 Abs Immat Gran (auto) 0.05 H Absolute Neuts (auto) 5.1 Absolute Nucleated RBC 0.000 Nucleated RBC % (auto) 0.0 PT 19.3 H INR 1.6 H APTT aPTT Heparin Protocol 86.0 H D D-Dimer High Sensitivty Sodium 141 145 Potassium 3.8 3.7 Chloride 109 H 108 Carbon Dioxide 23 26 Anion Gap 13 15 BUN 18 H 20 H Creatinine 0.85 0.90 Estim Creat Clear Calc 114.1 106.7 Estimated GFR > 60 > 60 Random Glucose 100 108 Calcium 8.9 8.7 Troponin I High Sens B-Natriuretic Peptide 1257 H Triglycerides Cholesterol LDL Cholesterol, Calc HDL Cholesterol Urine Opiates Screen Ur Buprenorphine Scrn Ur Oxycodone Screen Urine Methadone Screen Urine Fentanyl Screen Ur Barbiturates Screen Ur Phencyclidine Scrn Ur Amphetamines Screen U Benzodiazepines Scrn Urine Cocaine Screen U Marijuana (THC) Screen Narrative Narrative: Procedure Type: Transthoracic Echocardiogram Symptoms: afib rvr,elevated trop, elevated bnp Study Quality: Adequate ECG Rhythm: Atrial Fibrillation Conclusions: - 1. Severely reduced LV ejection fraction 25-30% 2. Severely dilated right ventricle 3. Severe biatrial enlargement 4. Normal RV systolic pressure but significantly elevated right atrial pressures 5. No gross pericardial effusion Findings Left Ventricle Normal left ventricular cavity size. There is moderately increased left ventricular wall thickness. The left ventricular systolic function is severely decreased. The visually estimated ejection fraction is between 25 30%. Diastolic function is indeterminate on the basis of available data. Right Ventricle Severely increased right ventricular cavity size. There is normal right ventricular systolic function. Atria The left atrium is severely dilated. There is no evidence of interatrial shunt. The right atrium is severely dilated. Aortic Valve The aortic valve was not well visualized. There is mild calcification of the aortic valve. There is mild thickening of the aortic valve. There is no aortic valve stenosis. There is no aortic valve regurgitation. bicuspid aortic valve can not be ruled out Mitral Valve There is mild anterior and posterior mitral leaflet thickening. There is mild mitral valve regurgitation. There is no mitral valve stenosis. Pulmonic Valve The pulmonic valve is likely normal. Tricuspid Valve Normal tricuspid valve structure. Significantly elevated right atrial pressure. There is no evidence of pulmonary hypertension. Great Vessels The aorta was not well visualized. The pulmonary artery was not well visualized. Venous The inferior vena cava is severely dilated and does not collapse with inspiration. Pericardium/Pleural There is no evidence of pericardial effusion. Prior Study Comparison No prior study available for comparison. Airway Mallampati Class: III TM Dist: >3cm Neck ROM: Full Loose/Missing/Broken Teeth: Yes (Missing molars. Denies broken, loose teeth) Heart: Irregularly iregular Lungs: CTAB Other: JVD Assessment and Plan Assessment Anesthesia Assessment: Anesthesia Plan Discussed and Chart Reviewed Final Anesthetic Review Family History of Problems with Anesthesia: No History of Problems with Anesthesia: No NPO: Yes (6 hours) ASA Class: III and Emergency Final Preanesthetic Review: No Changes in Pt Med Stat, Meds/Allgs Chart Reviewed, Consent Obtained/Reviewed and Anes Risks/Benef Reviewed Patient Risk: High Procedure Risk: Intermediate Assessment/Block/Sedation in SS: Assess/Block/Sedation-SS Anesthetic Plan Anesthetic Plan: GA, MAC: and TIVA Disposition: Standard PACU and Inp. Admit - [facility]
--- NOTE | 2024-01-03 13:07 | MHC.SHP ---
Pre-Procedural Eval Section A - 24 Hr Update-Section A only Date of Service: 01/03/24 The patient is an INPATIENT: Yes Changes since office visit: Yes New Medical Problems, Yes Changes in Medication and Yes Patient answered all questions; No Cold of Flu in the past 2 weeks The patient has been examined within 24 hours of the surgical procedure. The History & Physical has been completed within 30 days and I have reviewed it.: Yes Section B - Complete if H&P > 30 days Chief Complaint: new onset afib rvr Allergies: Allergies Allergy/AdvReac Type Severity Reaction Status Date / Time No Known Allergies Allergy Verified 01/01/24 12:14 Plan I have reviewed the history and physical and performed a pertinent physical examination on my patient. No changes have occurred unless specified. Time Spent With Patient Time: Total time managing care of this patient today ____ minutes.
--- NOTE | 2024-01-03 14:59 | PM.EVENT ---
Event Note Date of Service: 01/03/24 Event Note: Patient underwent SONIDO which showed left atrial appendage thrombus. Synchronized cardioversion was therefore not performed. Patient will continue with rate control and full oral anticoagulation will need to pursue outpatient SONIDO and cardioversion in 4 weeks time. Time Spent With Patient Time: Total time managing care of this patient today ____ minutes.
[2024-01-03] MEDS: Potassium Chloride ER 20 MEQ TAB.ER.PRT PO (15:55)
--- NOTE | 2024-01-03 16:16 | MHC.CM.PN ---
EMR reviewed and per MD rounds, pt is not medically cleared for discharge due to management of new onset afib with RVR.
[2024-01-03] MEDS: Sacubitril/Valsartan 24/26 1 TAB TABLET PO (19:54)
[2024-01-04] VITALS (9 sets, daily range): BP systolic 77–137; BP diastolic 55–76; PULSE 59–92; RESP 17–20; TEMP 36.2–37; O2SAT 93–98; BMI 33.5
[2024-01-04 06:34] LABS: Anion Gap 12 (12-20); Blood Urea Nitrogen 18 mg/dL (9-16); Calcium 9.1 mg/dL (8.4-10.2); Carbon Dioxide 29 mmol/L (22-29); Chloride 107 mmol/L (96-108); Creatinine Clr Calc Pharmacy 118.6; Estimated Glomerular Filt Rate > 60; Glucose Random 105 mg/dL (60-115); Potassium 3.4 mmol/L (3.3-5.1); Sodium 145 mmol/L (135-145)
--- NOTE | 2024-01-04 09:07 | HO.POSTANES ---
Post Anesthesia Evaluation Post Anesthesia Evaluation Date of Service: 01/04/24 Vital Signs: Vital Signs Temp Pulse Resp BP Pulse Ox O2 Del Method 01/04/24 08:18 137/76 01/04/24 07:34 97.1 F 81 20 78/56 L 93 Room Air 01/04/24 03:53 98.6 F 87 18 99/55 L 96 Room Air 01/03/24 23:57 96.8 F 82 17 93/65 92 Room Air Anesthesia: Monitored Mental Status: Awake Pain Control: Satisfactory Nausea/Vomiting: None Hydration: Adequate Anesthesia-Related Issues: No Anes. Related Issues
[2024-01-04] MEDS: Metoprolol Tartrate 25 MG TABLET PO (09:24)
[2024-01-04] MEDS: Thiamine HCL 100 MG TABLET PO (09:24)
[2024-01-04] MEDS: Apixaban 5 MG TABLET PO ×2 (09:24→20:57)
[2024-01-04] MEDS: Docusate Sodium 100 MG CAPSULE 200 MG PO (09:24)
[2024-01-04] MEDS: Furosemide 20 MG/2 ML VIAL 40 MG IVPUSH (09:24)
[2024-01-04] MEDS: Folic Acid 1 MG TABLET PO (09:24)
[2024-01-04] MEDS: Loratadine 10 MG TABLET PO (09:24)
[2024-01-04] MEDS: Sacubitril/Valsartan 24/26 1 TAB TABLET PO (09:24)
[2024-01-04] MEDS: 0.9 % Sodium Chloride Flush 3 ML SYRINGE IVFLUSH ×3 (09:24→20:59)
[2024-01-04] MEDS: Potassium Chloride ER 20 MEQ TAB.ER.PRT PO (09:24)
[2024-01-04] MEDS: Nicotine 21 MG PATCH.TD24 TRANSDERMA (09:26)
--- NOTE | 2024-01-04 11:26 | PM.PNCARD ---
Subjective Subjective Date of Service: 01/04/24 Principal diagnosis: CHF, atrial fibrillation Interval history: Underwent SONIDO yesterday noted to have large left atrial appendage thrombus could not undergo cardioversion. Remains in atrial fibrillation with controlled response. Continues to have shortness of breath. Negative balance of about 2200 cc overnight. Has been tolerating Entresto therapy Review of Systems Constitutional: Reports fatigue Cardiovascular: Denies chest pain, Denies lightheadedness, Denies palpitations and Reports dyspnea Respiratory: Reports no additional respiratory complaints and Reports dyspnea Endocrine: Reports fatigue and Denies palpitations Physical Exam Vital Signs: Last Vital Signs Temp 97.1 F 01/04/24 07:34 Pulse 81 01/04/24 07:34 Resp 20 01/04/24 07:34 BP 137/76 01/04/24 11:17 Pulse Ox 96 01/04/24 11:20 O2 Del Method Room Air 01/04/24 11:20 O2 Flow Rate 2 01/03/24 15:29 BMI result Body Mass Index 33.5 Const General: cooperative, comfortable, no acute distress, alert and awake Nutritional Appearance: obese Orientation/consciousness: patient oriented x3 Neck Neck: Yes trachea midline, Yes supple and Yes JVD Resp Effort & Inspection: normal respiratory effort Auscultation: clear to auscultation bilaterally Cardio Jugular venous distension: JVD Palpation: abnormal PMI displaced PMI Rhythm: abnormal rhythm irregularly irregular Heart sounds: S1 normal heart sound present, S2 normal heart sound present, no click, no gallops, no murmurs and no rubs GI Auscultation: normal bowel sounds Neuro General: patient oriented x3 and no focal motor deficits Extrem General: No clubbing, No cyanosis and Yes edema Objective Labs and Meds 01/02/24 06:07 01/04/24 05:59 Lab results: Laboratory Results - last 24 hr 01/04/24 05:59 Sodium 145 Potassium 3.4 Chloride 107 Carbon Dioxide 29 Anion Gap 12 BUN 18 H Creatinine 0.81 Estim Creat Clear Calc 118.6 Estimated GFR > 60 Random Glucose 105 Calcium 9.1 Magnesium 2.0 Progress Note: A&P Assessment and plan (1) Acute congestive heart failure: Status: Acute Assessment and Plan: Patient acute congestive heart failure still having symptoms with marked LV systolic dysfunction. Continue Entresto as well as metoprolol therapy for neurohormonal modulation. Continue diuresis. Strict intake and output chart needs to be pursued. Check BMP and BNP tomorrow. If symptoms have improved potentially discharge tomorrow. Cause of his LV systolic dysfunction unclear. Will need ischemic workup although suspect that he has significant sleep apnea that needs to be worked up as outpatient as well. (2) Atrial fibrillation: Status: Acute Assessment and Plan: Atrial fibrillation, new onset but unclear duration on SONIDO noted to have large left atrial appendage thrombus. Continue Eliquis therapy. Will pursue rhythm control approach in 4 weeks' time with a SONIDO guided cardioversion at that point in time will be scheduled as outpatient. Continue rate control with metoprolol. Continue full oral anticoagulation Eliquis. Will continue to follow with you Time Spent With Patient Time: Total time managing care of this patient today ____ minutes. Progress Note: Quality Stroke Does the patient have a stroke diagnosis?: No Procedures Date of Service Date of Service: 01/04/24
[2024-01-04] MEDS: Hydrocortisone 1 % Cream 28.35 GM TUBE 1 APPL TOPICAL ×2 (11:57→20:59)
--- NOTE | 2024-01-04 16:38 | HO.PM.IMPN ---
Subjective Subjective Date of Service: 01/04/24 Interval History: still c/o PND/orthopnea no chest pain BP low today without symptoms Review of Systems Review of Systems: Yes all other systems are reviewed and are negative Physical Exam Vital Signs: Vital Signs: Last Vital Signs Temp 98.0 F 01/04/24 15:09 Pulse 88 01/04/24 15:09 Resp 20 01/04/24 15:09 BP 97/67 01/04/24 15:09 Pulse Ox 95 01/04/24 15:09 O2 Del Method Room Air 01/04/24 15:09 O2 Flow Rate 2 01/03/24 15:29 BMI result Body Mass Index 33.5 Gen: in no acute distress HEENT: sclera anicteric, moist mucus membranes Neck: supple, JVD Lungs: clear to auscultation bilaterally Heart: irregularly irregular, no murmurs Abd: soft, non-tender, non-distended Ext: no edema Skin: warm/well-perfused Neuro: alert and oriented x3, no focal findings Psych: appropriate affect Objective Data Active Medications Acetaminophen (Acetaminophen 325 Mg Tablet) 650 mg PO Q6H PRN PRN Reason: Pain, Mild (Pain Scale 1-3) Apixaban (Apixaban 5 Mg Tablet) 5 mg PO BID [facility] Last Admin: 01/04/24 09:24 Dose: 5 mg Documented By: MAYA Docusate Sodium (Docusate Sodium 100 Mg Capsule) 200 mg PO DAILY [facility] Last Admin: 01/04/24 09:24 Dose: 200 mg Documented By: MAYA Folic Acid (Folic Acid 1 Mg Tablet) 1 mg PO DAILY [facility] Last Admin: 01/04/24 09:24 Dose: 1 mg Documented By: MAYA Furosemide (Furosemide 20 Mg/2 Ml Vial) 40 mg IVPUSH BID@0900,1800 [facility]; Protocol Last Admin: 01/04/24 09:24 Dose: 40 mg Documented By: MAYA Hydrocortisone (Hydrocortisone 1 % Cream 28.35 Gm Tube) 1 appl TOPICAL BID [facility]; Protocol Last Admin: 01/04/24 11:57 Dose: 1 appl Documented By: MAYA Loratadine (Loratadine 10 Mg Tablet) 10 mg PO DAILY [facility] Last Admin: 01/04/24 09:24 Dose: 10 mg Documented By: MAYA Magnesium Hydroxide (Milk Of Magnesia 30 Ml Oral.Susp) 30 ml PO DAILY PRN PRN Reason: Constipation Metoprolol Tartrate (Metoprolol Tartrate 12.5 Mg Halftab) 12.5 mg PO BID [facility]; Protocol Nicotine (Nicotine 21 Mg Patch.Td24) 21 mg TRANSDERMA DAILY [facility] Last Admin: 01/04/24 09:26 Dose: 21 mg Documented By: MAYA Ondansetron HCl (Ondansetron Hcl 4 Mg/2 Ml Vial) 4 mg IVPUSH Q8H PRN PRN Reason: Nausea and Vomiting Potassium Chloride (Potassium Chloride Er 20 Meq Tab.Er.Prt) 20 meq PO DAILY [facility] Last Admin: 01/04/24 09:24 Dose: 20 meq Documented By: MAYA Sacubitril/Valsartan (Sacubitril/Valsartan 1 Tab Tablet) 1 tab PO BID [facility]; Protocol Last Admin: 01/04/24 09:24 Dose: 1 tab Documented By: MAYA Sodium Chloride (0.9 % Sodium Chloride Flush 3 Ml Syringe) 3 ml IVFLUSH QSHIFT [facility] Last Admin: 01/04/24 09:24 Dose: 3 ml Documented By: MAYA Thiamine HCl (Thiamine Hcl 100 Mg Tablet) 100 mg PO DAILY [facility] Last Admin: 01/04/24 09:24 Dose: 100 mg Documented By: MAYA Labs 01/02/24 06:07 01/04/24 05:59 Labs: Laboratory Results - last 24 hr 01/04/24 05:59 Anion Gap 12 Estim Creat Clear Calc 118.6 Estimated GFR > 60 Random Glucose 105 Calcium 9.1 Magnesium 2.0 Assessment and Plan (1) Acute congestive heart failure: Status: Acute (2) Elevated troponin: Status: Acute (3) CHF (congestive heart failure): Status: Acute (4) Atrial fibrillation: Status: Acute Plan d4 63yo M with AUD, tobacco abuse admitted for new-onset AF/RVR, found to have HFrEF new-onset AF/RVR large TREVOR thrombus - continue metoprolol tartrate + apixaban; SONIDO cardioversion in 4 wk acute HFrEF - EF 25-30% with severely dilated RV + severe biatrial enlargement - continue metoprolol tartrate but decrease dose for hypotension; start Entresto but hold for hypotension - on furosemide; currently on hold for hypotension; negative 5L this admission cumulatively - Tn-I 362->355 ng/L, likely due to AF/RVR + CHF - will need outpt sleep study and ischemic workup - continue to monitor I/O, wts, BMP, Mg, BNP AUD - no withdrawal, continue thiamine + folate, declines Addiciton Medicine consult tobacco abuse - NRT VTE ppx - apixaban dispo - home once euvolemic In my clinical judgment, the patient requires continued inpatient hospitalization for the following reasons: hypotension, IV diuresis Total time managing care of this patient today: 35 minutes. Quality Stroke Does the patient have a stroke diagnosis?: No VTE Prior VTE?: No VTE Risk Level:: Medical - moderate - high VTE Device Contraindication: Treatment Not Indicated VTE Drug Contraindication: N/A - Med Ordered
[2024-01-04] MEDS: Metoprolol Tartrate 12.5 MG HALFTAB PO (20:57)
[2024-01-05] VITALS (9 sets, daily range): BP systolic 80–107; BP diastolic 58–76; PULSE 56–107; RESP 17–22; TEMP 36.1–36.4; O2SAT 92–96
[2024-01-05 06:19] LABS: Anion Gap 13 (12-20); Blood Urea Nitrogen 21 mg/dL (9-16); Calcium 9.3 mg/dL (8.4-10.2); Carbon Dioxide 29 mmol/L (22-29); Chloride 107 mmol/L (96-108); Creatinine Clr Calc Pharmacy 100.5; Estimated Glomerular Filt Rate > 60; Glucose Random 128 mg/dL (60-115); Magnesium 2.2 mg/dL (1.6-2.6); Sodium 145 mmol/L (135-145)
[2024-01-05 06:24] LABS: B Type Natriuretic Peptide 761 pg/mL (<100)
[2024-01-05] MEDS: Folic Acid 1 MG TABLET PO (08:28)
[2024-01-05] MEDS: Metoprolol Tartrate 12.5 MG HALFTAB PO ×2 (08:28→20:06)
[2024-01-05] MEDS: Apixaban 5 MG TABLET PO ×2 (08:28→20:06)
[2024-01-05] MEDS: Loratadine 10 MG TABLET PO (08:29)
[2024-01-05] MEDS: Thiamine HCL 100 MG TABLET PO (08:29)
[2024-01-05] MEDS: Docusate Sodium 100 MG CAPSULE 200 MG PO (08:29)
[2024-01-05] MEDS: Potassium Chloride ER 20 MEQ TAB.ER.PRT PO (08:29)
[2024-01-05] MEDS: Hydrocortisone 1 % Cream 28.35 GM TUBE 1 APPL TOPICAL ×2 (08:30→20:07)
[2024-01-05] MEDS: 0.9 % Sodium Chloride Flush 3 ML SYRINGE IVFLUSH ×2 (08:30→14:45)
[2024-01-05] MEDS: Nicotine 21 MG PATCH.TD24 TRANSDERMA (08:32)
--- OUTSIDE RECORDS SUMMARY | 2024-01-05 09:29 | XMS_ITS | Continuity of Care Document ---
Author Organization [facility] Address [address] [place] [id number]- Care Team Providers Care Diesel Technician Name Role Phone Charlotte URIAS, Srikanth Flores Primary Care Physician [phone] Encounter [facility] Date(s): 10/25/19 - 11/04/19 [facility] [address] [place] [id number]- [facility] Attending Physician: Rebecca Reyes Admitting Physician: Rebecca Reyes Referring Physician: AdmRebecca alvarez Allergies, Adverse Reactions, Alerts Substance Reaction Severity Status NKA Active Immunizations Given and Recorded Vaccine Date Status Refusal Reason Pneumococcal Vaccine (oldterm) 12/01/08 Given Tet/Diphth/Acel, Pertussis (oldterm) 05/30/07 Give n Tetanus Toxoid Vaccine (oldterm) 07/31/96 Given Medications aspirin 81 mg oral enteric coated capsule 81 mg, 1 capsule, By Mouth, Daily, # 120 capsule, 0 Refills Start Date: 12/01/08 Stop Date: 12/31/08 Status: Ordered Vitamin D 86986 iu oral capsule See Instructions, 1 capsule By Mouth Every week, # 8 tablet, 0 Refills Start Date: 12/09/08 Stop Date: 01/08/09 Status: Ordered Problem List Condition Effective Dates Status Health Status Inform ant Cocaine abuse(Confirmed) Active Erectile dysfunction(Confirmed) Active Hypercholesterolemia(Confirmed) Active Rash feet and left thigh(Confirmed) 05/29/06 Active Tobacco abuse(Confirmed) Active
--- OUTSIDE RECORDS SUMMARY | 2024-01-05 09:29 | XMS_ITS | Continuity of Care Document ---
Author Organization [facility] Address [address] [place] [id number]- Care Team Providers Care Commercial Development Manager Name Role Phone Not on Staff, PCP Primary Care Physician Unavail able Encounter [facility] Date(s): 03/16/23 - 04/15/23 [facility] [address] [place] [id number]- [place] Allergies, Adverse Reactions, Alerts No Known Allergies Immunizations Given and Recorded Vaccine Date Status Refusal Reason Pneumococcal Vaccine (oldterm) 12/01/08 Given Tet/Diphth/Acel, Pertussis (oldterm) 05/30/07 Give n Tetanus Toxoid Vaccine (oldterm) 07/31/96 Given Medications aspirin 81 mg oral enteric coated capsule 81 mg, 1 capsule, By Mouth, Daily, # 120 capsule, 0 Refills Start Date: 12/01/08 Stop Date: 12/31/08 Status: Ordered Vitamin D 90076 iu oral capsule See Instructions, 1 capsule By Mouth Every week, # 8 tablet, 0 Refills Start Date: 12/09/08 Stop Date: 01/08/09 Status: Ordered Problem List Condition Confirmation Course Effective Dates Status Health Status Informant Cocaine abuse Confirmed Active Erectile dysfunction Confirmed Active Hypercholesterolemia Confirmed Active Rash feet and left thigh Confirmed 05/29/06 Active Tobacco abuse Confirmed Active Patient Care team information Care Team Personnel Name: Not on Staff, PCP Position: S Physician (General Medicine) Member Role: PCP Care Team Related Persons Name: VERENICE BOWERS Address: home [address] [place] [id number] Name: IZA KAM Address: home [address] [place] [id number]
[2024-01-05] MEDS: Milk of Magnesia 30 ML ORAL.SUSP PO (11:26)
[2024-01-05] MEDS: Furosemide 40 MG/4 ML VIAL IVPUSH (11:27)
--- NOTE | 2024-01-05 12:05 | HO.PM.IMPN ---
Subjective Subjective Date of Service: 01/05/24 Interval History: still c/o PND/orthopnea no chest pain no palpitations Review of Systems Review of Systems: Yes all other systems are reviewed and are negative Physical Exam Vital Signs: Vital Signs: Last Vital Signs Temp 97.0 F 01/05/24 11:00 Pulse 91 01/05/24 11:00 Resp 20 01/05/24 11:00 BP 94/76 01/05/24 11:27 Pulse Ox 93 01/05/24 11:00 O2 Del Method Room Air 01/05/24 11:00 O2 Flow Rate 2 01/03/24 15:29 BMI result Body Mass Index 33.5 Gen: in no acute distress HEENT: sclera anicteric, moist mucus membranes Neck: supple, JVD Lungs: clear to auscultation bilaterally Heart: irregularly irregular, no murmurs Abd: soft, non-tender, non-distended Ext: no edema Skin: warm/well-perfused Neuro: alert and oriented x3, no focal findings Psych: appropriate affect Objective Data Active Medications Acetaminophen (Acetaminophen 325 Mg Tablet) 650 mg PO Q6H PRN PRN Reason: Pain, Mild (Pain Scale 1-3) Apixaban (Apixaban 5 Mg Tablet) 5 mg PO BID [facility] Last Admin: 01/05/24 08:28 Dose: 5 mg Documented By: MAYA Docusate Sodium (Docusate Sodium 100 Mg Capsule) 200 mg PO DAILY [facility] Last Admin: 01/05/24 08:29 Dose: 200 mg Documented By: MAYA Folic Acid (Folic Acid 1 Mg Tablet) 1 mg PO DAILY [facility] Last Admin: 01/05/24 08:28 Dose: 1 mg Documented By: MAYA Furosemide (Furosemide 20 Mg/2 Ml Vial) 40 mg IVPUSH BID@0900,1800 [facility]; Protocol Last Admin: 01/04/24 09:24 Dose: 40 mg Documented By: MAYA Hydrocortisone (Hydrocortisone 1 % Cream 28.35 Gm Tube) 1 appl TOPICAL BID [facility]; Protocol Last Admin: 01/05/24 08:30 Dose: 1 appl Documented By: MAYA Loratadine (Loratadine 10 Mg Tablet) 10 mg PO DAILY [facility] Last Admin: 01/05/24 08:29 Dose: 10 mg Documented By: MAYA Magnesium Hydroxide (Milk Of Magnesia 30 Ml Oral.Susp) 30 ml PO DAILY PRN PRN Reason: Constipation Last Admin: 01/05/24 11:26 Dose: 30 ml Documented By: MAYA Metoprolol Tartrate (Metoprolol Tartrate 12.5 Mg Halftab) 12.5 mg PO BID [facility]; Protocol Last Admin: 01/05/24 08:28 Dose: 12.5 mg Documented By: MAYA Nicotine (Nicotine 21 Mg Patch.Td24) 21 mg TRANSDERMA DAILY [facility] Last Admin: 01/05/24 08:32 Dose: 21 mg Documented By: MAYA Ondansetron HCl (Ondansetron Hcl 4 Mg/2 Ml Vial) 4 mg IVPUSH Q8H PRN PRN Reason: Nausea and Vomiting Potassium Chloride (Potassium Chloride Er 20 Meq Tab.Er.Prt) 20 meq PO DAILY [facility] Last Admin: 01/05/24 08:29 Dose: 20 meq Documented By: MAYA Sacubitril/Valsartan (Sacubitril/Valsartan 1 Tab Tablet) 1 tab PO BID [facility]; Protocol Last Admin: 01/04/24 09:24 Dose: 1 tab Documented By: MAYA Sodium Chloride (0.9 % Sodium Chloride Flush 3 Ml Syringe) 3 ml IVFLUSH QSHIFT [facility] Last Admin: 01/05/24 08:30 Dose: 3 ml Documented By: MAYA Thiamine HCl (Thiamine Hcl 100 Mg Tablet) 100 mg PO DAILY [facility] Last Admin: 01/05/24 08:29 Dose: 100 mg Documented By: MAYA Labs 01/02/24 06:07 01/05/24 05:52 Labs: Laboratory Results - last 24 hr 01/05/24 05:52 Anion Gap 13 Estim Creat Clear Calc 100.5 Estimated GFR > 60 Random Glucose 128 H Calcium 9.3 Magnesium 2.2 B-Natriuretic Peptide 761 H Assessment and Plan (1) Acute congestive heart failure: Status: Acute (2) Elevated troponin: Status: Acute (3) CHF (congestive heart failure): Status: Acute (4) Atrial fibrillation: Status: Acute Plan d5 63yo M with AUD, tobacco abuse admitted for new-onset AF/RVR, found to have HFrEF new-onset AF/RVR large TREVOR thrombus - continue metoprolol tartrate + apixaban; outpt Cardiology follow-up; outpt SONIDO cardioversion in 4 wk acute HFrEF - EF 25-30% with severely dilated RV + severe biatrial enlargement - continue metoprolol tartrate but decrease dosed for hypotension; started Entresto but hold for hypotension - resume furosemide diuresis; negative 5L this admission cumulatively - Tn-I 362->355 ng/L, likely due to AF/RVR + CHF - will need outpt sleep study and ischemic workup - continue to monitor I/O, wts, BMP, Mg, BNP AUD - no withdrawal, continue thiamine + folate, declines Addiciton Medicine consult tobacco abuse - NRT VTE ppx - apixaban dispo - home once euvolemic, VNA services for CHF monitoring In my clinical judgment, the patient requires continued inpatient hospitalization for the following reasons: hypotension, IV diuresis Total time managing care of this patient today: 35 minutes. Quality Stroke Does the patient have a stroke diagnosis?: No VTE Prior VTE?: No VTE Risk Level:: Medical - moderate - high VTE Device Contraindication: Treatment Not Indicated VTE Drug Contraindication: N/A - Med Ordered
--- NOTE | 2024-01-05 12:12 | PM.PNCARD ---
Subjective Subjective Date of Service: 01/05/24 Principal diagnosis: CHF, atrial fibrillation Interval history: Patient low blood pressure yesterday. Still continues to have shortness of breath with symptoms of suggestive of orthopnea but also with exertion with getting more short of breath. BNP is down trended to 700 range. Blood pressure is on the softer side. Overall negative balance of about 5 L. Review of Systems Constitutional: Reports no additional constitutional complaints Cardiovascular: Denies chest pain, Denies leg edema, Denies palpitations, Reports dyspnea on exertion and Reports orthopnea Respiratory: Reports dyspnea on exertion Gastrointestinal: Reports no additional gastrointestinal complaints Skin/Breast: Reports system reviewed and no additional complaints, except as docu Reports system reviewed and no additional complaints, except as documented Endocrine: Denies palpitations Physical Exam Vital Signs: Last Vital Signs Temp 97.0 F 01/05/24 11:00 Pulse 91 01/05/24 11:00 Resp 20 01/05/24 11:00 BP 94/76 01/05/24 11:27 Pulse Ox 93 01/05/24 11:00 O2 Del Method Room Air 01/05/24 11:00 O2 Flow Rate 2 01/03/24 15:29 BMI result Body Mass Index 33.5 Const General: cooperative, comfortable, no acute distress, alert and awake Nutritional Appearance: obese Orientation/consciousness: patient oriented x3 Neck Neck: Yes trachea midline, Yes supple and Yes JVD Resp Effort & Inspection: normal respiratory effort Auscultation: clear to auscultation bilaterally Cardio Jugular venous distension: JVD Palpation: abnormal PMI displaced PMI Rhythm: abnormal rhythm irregularly irregular Heart sounds: S1 normal heart sound present, S2 normal heart sound present, no click, no gallops, no murmurs and no rubs GI Auscultation: normal bowel sounds Neuro General: patient oriented x3 and no focal motor deficits Extrem General: No clubbing, No cyanosis and Yes edema Objective Labs and Meds 01/02/24 06:07 01/05/24 05:52 Lab results: Laboratory Results - last 24 hr 01/05/24 05:52 Sodium 145 Potassium 4.0 Chloride 107 Carbon Dioxide 29 Anion Gap 13 BUN 21 H Creatinine 0.94 Estim Creat Clear Calc 100.5 Estimated GFR > 60 Random Glucose 128 H Calcium 9.3 Magnesium 2.2 B-Natriuretic Peptide 761 H Progress Note: A&P Assessment and plan (1) Acute congestive heart failure: Status: Acute Assessment and Plan: Acute congestive heart failure still symptomatic although BNP is downtrending he is diuresing well. Continue IV diuresis. Strict intake and output chart needs to be pursued. Continue to monitor renal function as well as BNP. Once his symptoms have improved will plan for discharge and switch to oral diuretic therapy. Given his low blood pressure would hold off on Entresto therapy for now can switch to valsartan 20 mg b.i.d.. Continue metoprolol therapy for neurohormonal modulation. Management was discussed with him. (2) Atrial fibrillation: Status: Acute Assessment and Plan: Atrial fibrillation new onset, rate is adequately controlled. Has a large left atrial thrombus and can not pursue rhythm control approach. This will be pursued in 4 weeks time after adequate anticoagulation. Continue metoprolol and Eliquis. Will follow with you Time Spent With Patient Time: Total time managing care of this patient today ____ minutes. Progress Note: Quality Stroke Does the patient have a stroke diagnosis?: No Procedures Date of Service Date of Service: 01/05/24
[2024-01-05] MEDS: polyethylene glycoL 3350 17 GM POWD.PACK PO (14:44)
--- NOTE | 2024-01-05 15:37 | MHC.CM.PN ---
Per MD rounds Paient may discharge to home with VNA Monday. preferrences obtained a referral has been sent to [facility]. Patient will self transport home.
[2024-01-05] MEDS: Furosemide 20 MG/2 ML VIAL 40 MG IVPUSH (18:07)
[2024-01-06] VITALS (11 sets, daily range): BP systolic 90–122; BP diastolic 52–83; PULSE 78–105; RESP 16–20; TEMP 36–36.8; O2SAT 93–100; BMI 33.5
[2024-01-06] MEDS: 0.9 % Sodium Chloride Flush 3 ML SYRINGE IVFLUSH ×3 (00:38→17:29)
[2024-01-06] MEDS: Docusate Sodium 100 MG CAPSULE 200 MG PO (08:08)
[2024-01-06] MEDS: Apixaban 5 MG TABLET PO ×2 (08:08→21:10)
[2024-01-06] MEDS: Loratadine 10 MG TABLET PO (08:08)
[2024-01-06] MEDS: Folic Acid 1 MG TABLET PO (08:08)
[2024-01-06] MEDS: Potassium Chloride ER 20 MEQ TAB.ER.PRT PO (08:09)
[2024-01-06] MEDS: Metoprolol Tartrate 12.5 MG HALFTAB PO ×2 (08:09→21:13)
[2024-01-06] MEDS: Furosemide 20 MG/2 ML VIAL 40 MG IVPUSH ×2 (08:09→17:29)
[2024-01-06] MEDS: Thiamine HCL 100 MG TABLET PO (08:09)
[2024-01-06] MEDS: polyethylene glycoL 3350 17 GM POWD.PACK PO (08:10)
[2024-01-06] MEDS: Hydrocortisone 1 % Cream 28.35 GM TUBE 1 APPL TOPICAL ×2 (08:13→21:11)
[2024-01-06] MEDS: Nicotine 21 MG PATCH.TD24 TRANSDERMA (08:13)
[2024-01-06 09:12] LABS: Anion Gap 16 (12-20); Blood Urea Nitrogen 21 mg/dL (9-16); Calcium 9.4 mg/dL (8.4-10.2); Carbon Dioxide 27 mmol/L (22-29); Chloride 103 mmol/L (96-108); Creatinine Clr Calc Pharmacy 106.2; Estimated Glomerular Filt Rate > 60; Glucose Random 103 mg/dL (60-115); Magnesium 2.3 mg/dL (1.6-2.6); Potassium 4.2 mmol/L (3.3-5.1); Sodium 142 mmol/L (135-145)
[2024-01-06 09:14] LABS: B Type Natriuretic Peptide 825 pg/mL (<100)
--- NOTE | 2024-01-06 10:29 | HO.PM.IMPN ---
Subjective Subjective Date of Service: 01/06/24 Interval History: ventricular rate in 100s-110s BP 80/60 overnight, now 114/83 no lightheadedness or palpitations no chest pain still has orthopnea Review of Systems Review of Systems: Yes all other systems are reviewed and are negative Physical Exam Vital Signs: Vital Signs: Last Vital Signs Temp 98.2 F 01/06/24 07:47 Pulse 86 01/06/24 07:47 Resp 16 01/06/24 07:47 BP 114/83 01/06/24 08:09 Pulse Ox 95 01/06/24 07:47 O2 Del Method Room Air 01/06/24 07:47 O2 Flow Rate 2 01/03/24 15:29 BMI result Body Mass Index 33.5 Gen: in no acute distress HEENT: sclera anicteric, moist mucus membranes Neck: supple, JVD Lungs: clear to auscultation bilaterally Heart: rapid, irregularly irregular, no murmurs Abd: soft, non-tender, non-distended Ext: no edema Skin: warm/well-perfused Neuro: alert and oriented x3, no focal findings Psych: appropriate affect Objective Data Active Medications Acetaminophen (Acetaminophen 325 Mg Tablet) 650 mg PO Q6H PRN PRN Reason: Pain, Mild (Pain Scale 1-3) Apixaban (Apixaban 5 Mg Tablet) 5 mg PO BID [facility] Last Admin: 01/06/24 08:08 Dose: 5 mg Documented By: GABRIEL Docusate Sodium (Docusate Sodium 100 Mg Capsule) 200 mg PO DAILY [facility] Last Admin: 01/06/24 08:08 Dose: 200 mg Documented By: GABRIEL Folic Acid (Folic Acid 1 Mg Tablet) 1 mg PO DAILY [facility] Last Admin: 01/06/24 08:08 Dose: 1 mg Documented By: GABRIEL Furosemide (Furosemide 20 Mg/2 Ml Vial) 40 mg IVPUSH BID@0900,1800 [facility]; Protocol Last Admin: 01/06/24 08:09 Dose: 40 mg Documented By: GABRIEL Hydrocortisone (Hydrocortisone 1 % Cream 28.35 Gm Tube) 1 appl TOPICAL BID [facility]; Protocol Last Admin: 01/06/24 08:13 Dose: 1 appl Documented By: GABRIEL Loratadine (Loratadine 10 Mg Tablet) 10 mg PO DAILY [facility] Last Admin: 01/06/24 08:08 Dose: 10 mg Documented By: GABRIEL Magnesium Hydroxide (Milk Of Magnesia 30 Ml Oral.Susp) 30 ml PO DAILY PRN PRN Reason: Constipation Last Admin: 01/05/24 11:26 Dose: 30 ml Documented By: MAYA Metoprolol Tartrate (Metoprolol Tartrate 12.5 Mg Halftab) 12.5 mg PO BID [facility]; Protocol Last Admin: 01/06/24 08:09 Dose: 12.5 mg Documented By: GABRIEL Nicotine (Nicotine 21 Mg Patch.Td24) 21 mg TRANSDERMA DAILY [facility] Last Admin: 01/06/24 08:13 Dose: 21 mg Documented By: GABRIEL Ondansetron HCl (Ondansetron Hcl 4 Mg/2 Ml Vial) 4 mg IVPUSH Q8H PRN PRN Reason: Nausea and Vomiting Polyethylene Glycol (Polyethylene Glycol 3350 17 Gm Powd.Pack) 17 gm PO DAILY [facility] Last Admin: 01/06/24 08:10 Dose: 17 gm Documented By: GABRIEL Potassium Chloride (Potassium Chloride Er 20 Meq Tab.Er.Prt) 20 meq PO DAILY [facility] Last Admin: 01/06/24 08:09 Dose: 20 meq Documented By: GABRIEL Sacubitril/Valsartan (Sacubitril/Valsartan 1 Tab Tablet) 1 tab PO BID [facility]; Protocol Last Admin: 01/04/24 09:24 Dose: 1 tab Documented By: MAYA Sodium Chloride (0.9 % Sodium Chloride Flush 3 Ml Syringe) 3 ml IVFLUSH QSHIFT [facility] Last Admin: 01/06/24 08:10 Dose: 3 ml Documented By: GABRIEL Thiamine HCl (Thiamine Hcl 100 Mg Tablet) 100 mg PO DAILY [facility] Last Admin: 01/06/24 08:09 Dose: 100 mg Documented By: GABRIEL Labs 01/02/24 06:07 01/06/24 08:36 Labs: Laboratory Results - last 24 hr 01/06/24 08:36 Anion Gap 16 Estim Creat Clear Calc 106.2 Estimated GFR > 60 Random Glucose 103 Calcium 9.4 Magnesium 2.3 B-Natriuretic Peptide 825 H Assessment and Plan (1) Acute congestive heart failure: Status: Acute (2) Elevated troponin: Status: Acute (3) CHF (congestive heart failure): Status: Acute (4) Atrial fibrillation: Status: Acute Plan d6 63yo M with AUD, tobacco abuse admitted for new-onset AF/RVR, found to have HFrEF new-onset AF/RVR large TREVOR thrombus - continue metoprolol tartrate and will load with IV digoxin and start maintanance tomorrow; continue apixaban; outpt Cardiology follow-up; outpt SONIDO cardioversion in 4 wk acute HFrEF: EF 25-30% with severely dilated RV + severe biatrial enlargement - continue metoprolol tartrate but decrease dosed for hypotension; no BP room for RAAS blockade - resumed furosemide diuresis; negative 6.7L this admission cumulatively - Tn-I 362->355 ng/L, likely due to AF/RVR + CHF - will need outpt sleep study and ischemic workup - continue to monitor I/O, wts, BMP, Mg, BNP [BNP slightly higher today] AUD - no withdrawal, continue thiamine + folate, declines Addiciton Medicine consult tobacco abuse - NRT VTE ppx - apixaban dispo - home once euvolemic, VNA services for CHF monitoring In my clinical judgment, the patient requires continued inpatient hospitalization for the following reasons: hypotension, IV diuresis, rate control requiring digitalization Total time managing care of this patient today: 40 minutes. Quality Stroke Does the patient have a stroke diagnosis?: No VTE Prior VTE?: No VTE Risk Level:: Medical - moderate - high VTE Device Contraindication: Treatment Not Indicated VTE Drug Contraindication: N/A - Med Ordered
--- NOTE | 2024-01-06 10:53 | PM.PNCARD ---
Subjective Subjective Date of Service: 01/06/24 Principal diagnosis: CHF, atrial fibrillation Review of Systems Constitutional: Reports no additional constitutional complaints Cardiovascular: Reports lightheadedness, Reports palpitations and Reports dyspnea on exertion Respiratory: Reports dyspnea on exertion Reports system reviewed and no additional complaints, except as documented Endocrine: Reports palpitations Physical Exam Vital Signs: Last Vital Signs Temp 98.2 F 01/06/24 07:47 Pulse 86 01/06/24 07:47 Resp 16 01/06/24 07:47 BP 114/83 01/06/24 08:09 Pulse Ox 95 01/06/24 07:47 O2 Del Method Room Air 01/06/24 07:47 O2 Flow Rate 2 01/03/24 15:29 BMI result Body Mass Index 33.5 Const General: cooperative, comfortable, no acute distress, alert and awake Nutritional Appearance: obese Orientation/consciousness: patient oriented x3 Neck Neck: Yes trachea midline, Yes supple and Yes JVD Resp Effort & Inspection: normal respiratory effort Auscultation: clear to auscultation bilaterally Cardio Jugular venous distension: JVD Palpation: abnormal PMI displaced PMI Rhythm: abnormal rhythm irregularly irregular Heart sounds: S1 normal heart sound present, S2 normal heart sound present, no click, no gallops, no murmurs and no rubs GI Auscultation: normal bowel sounds Neuro General: patient oriented x3 and no focal motor deficits Extrem General: No clubbing, No cyanosis and Yes edema Objective Labs and Meds 01/02/24 06:07 01/06/24 08:36 Lab results: Laboratory Results - last 24 hr 01/06/24 08:36 Sodium 142 Potassium 4.2 Chloride 103 Carbon Dioxide 27 Anion Gap 16 BUN 21 H Creatinine 0.89 Estim Creat Clear Calc 106.2 Estimated GFR > 60 Random Glucose 103 Calcium 9.4 Magnesium 2.3 B-Natriuretic Peptide 825 H Progress Note: A&P Assessment and plan (1) Acute congestive heart failure: Status: Acute Assessment and Plan: Acute congestive heart failure with protracted course with very slow response to therapy. Complicated by low blood pressure to renin angiotensin antagonist treatment. Continues to remain in rapid atrial flutter/fibrillation. Will need better rate control. See below. Continue metoprolol therapy for neurohormonal modulation as well as rate control. Continue IV diuresis. Continue strict intake and output chart and trend BMP and BNP. He is frustrated with overall slow response although discussed with him that he has pretty significant LV systolic dysfunction which probably leads to his clinical syndrome. He understands and agrees. (2) Atrial fibrillation: Status: Acute Assessment and Plan: Atrial fibrillation with difficult to control rate. Digitalize with 0.25 mg IV push q.6 hours x3 doses. Continue metoprolol. Continue full oral anticoagulation Eliquis. Can not pursue rhythm control approach due to left atrial appendage thrombus unfortunately. Will follow up Time Spent With Patient Time: Total time managing care of this patient today ____ minutes. Progress Note: Quality Stroke Does the patient have a stroke diagnosis?: No Procedures Date of Service Date of Service: 01/06/24
[2024-01-06] MEDS: Digoxin 0.5 MG/2 ML AMPUL 0.25 MG IVPUSH ×2 (11:16→17:29)
[2024-01-06] MEDS: Lactulose 20 GM/30 ML SOLUTION PO (14:36)
[2024-01-06] MEDS: bisacodyL 5 MG TABLET.DR 10 MG PO (14:36)
[2024-01-06] MEDS: Sennosides/Docusate Sodium TABLET 2 TAB PO (14:36)
[2024-01-07] MEDS: Digoxin 0.5 MG/2 ML AMPUL 0.25 MG IVPUSH (00:32)
[2024-01-07] MEDS: 0.9 % Sodium Chloride Flush 3 ML SYRINGE IVFLUSH ×2 (00:33→08:43)
[2024-01-07 03:35] VITALS: BP 114/67; PULSE 58; RESP 18; TEMP 36.8; O2SAT 97
--- NOTE | 2024-01-07 05:20 | MHC.PIE ---
P HR 30'S I.HR noted to dip to 30's slow afib briefly then back to 90's.Pt asleep,asymptomatic.Easily awakened.Dr Devine notified and aware. E.Cont to monitor.
[2024-01-07 05:49] VITALS: BMI 33.6
[2024-01-07 07:32] VITALS: BP 106/80; PULSE 94; RESP 16; TEMP 36.7; O2SAT 94
[2024-01-07 07:39] LABS: Anion Gap 14 (12-20); Blood Urea Nitrogen 25 mg/dL (9-16); Calcium 9.4 mg/dL (8.4-10.2); Carbon Dioxide 28 mmol/L (22-29); Chloride 102 mmol/L (96-108); Creatinine Clr Calc Pharmacy 106.4; Estimated Glomerular Filt Rate > 60; Glucose Random 98 mg/dL (60-115); Magnesium 2.4 mg/dL (1.6-2.6); Potassium 3.9 mmol/L (3.3-5.1); Sodium 140 mmol/L (135-145)
[2024-01-07 07:43] LABS: B Type Natriuretic Peptide 776 pg/mL (<100)
[2024-01-07] MEDS: Apixaban 5 MG TABLET PO (08:41)
[2024-01-07] MEDS: Metoprolol Tartrate 12.5 MG HALFTAB PO (08:41)
[2024-01-07] MEDS: Thiamine HCL 100 MG TABLET PO (08:41)
[2024-01-07] MEDS: Loratadine 10 MG TABLET PO (08:41)
[2024-01-07] MEDS: Digoxin 0.125 MG TABLET PO (08:42)
[2024-01-07] MEDS: Folic Acid 1 MG TABLET PO (08:42)
[2024-01-07] MEDS: Potassium Chloride ER 20 MEQ TAB.ER.PRT PO (08:42)
[2024-01-07] MEDS: Nicotine 21 MG PATCH.TD24 TRANSDERMA (08:42)
[2024-01-07] MEDS: Furosemide 20 MG/2 ML VIAL 40 MG IVPUSH (08:42)
[2024-01-07] MEDS: Hydrocortisone 1 % Cream 28.35 GM TUBE 1 APPL TOPICAL (08:46)
--- NOTE | 2024-01-07 10:47 | P.F2F_ITS ---
Service Date Service Date: 01/07/24 Encounter Date of encounter: 01/07/24 Reasons for Services Signs and symptoms assessed: CHF teaching/monitoring Reason for senior living: medication management, medication treatment and teach disease management MD Overseeing Care: Riccardo Diamond Homebound: Leaving the home is medically contraindicated at this time without the asist of a device and/or another person due th the listed conditions above and below. Reason homebound: shortness of breath with minimal effort and weakness related to hospital stay Certification: Based on the above findings, I certify that this patient is confined to the home and needs intermittent senior living care, physical therapy and/or speech therapy, or continues to need occupational therapy. The patient is under my care, and I have initiated the establishment of the plan of care. The patient will be followed by a physician who will periodically review the plan of care. Time Spent With Patient Time: Total time managing care of this patient today ____ minutes.
[2024-01-07 11:00] VITALS: O2SAT 94
--- NOTE | 2024-01-07 11:05 | PM.DS ---
DS: Providers Provider Date of Service: 01/07/24 Date of admission: 01/01/24 16:11 Date of discharge: 01/07/24 Primary care physician: Riccardo Diamond MD Consults: 01/01/24 16:11 Consult to Cardiology Routine Consulting Provider: [facility] Reason for consultation: new onset afib, chf DS: Diagnosis Discharge Diagnosis (1) Acute HFrEF (heart failure with reduced ejection fraction): Status: Acute (2) Atrial fibrillation with rapid ventricular response: Status: Acute (3) Left atrial thrombus: Status: Acute (4) Tobacco abuse: Status: Acute (5) Alcohol use disorder: Status: Acute DS: Summary Hospital Course Hospital Course: From the history and physical by the admitting hospitalist, TALHA Friedman, 01/01/24: 63-year-old male with history of alcohol use disorder, severe obesity who is a current 15 cigarette per day smoker presented to the ED due to new onset atrial fibrillation with RVR. The patient was undergoing preop evaluation with anesthesia for prostate biopsy with EKG showing new onset atrial fibrillation with RVR. The patient denies any known history of AFib, cardiac arrhythmia, or cardiovascular disease. He denies any chest pain, palpitations, lightheadedness. However, does state he has had dyspnea both at rest and with exertion along with fatigue ongoing since Monday. He was previously an everyday drinking consuming 3-4 alcoholic beverages on a daily basis at night and stopped drinking cold turkey on Monday. Denies any withdrawal symptoms including nausea, vomiting, tremors, confusion, agitation, anxiety, hallucinations. He does also smoke 15 cigarettes on a daily basis and occasional marijuana use but denies any illicit drug use. On arrival, patient tachycardic to 126 and tachypneic to 22, blood pressure soft but no hypotension. He is afebrile. There has no leukocytosis or anemia. Renal function and electrolyte levels normal. Initial troponin 362.1, repeat 355.8. BNP 1104. Will check urine drug screen. Chest x-ray shows mild interstitial edema. Most recent EKG shows atrial fibrillation with rate 96 with T-wave inversions in lateral leads, prior EKG with rate 119. There does appear to be slight increase in T-wave inversions in lateral leads compared to prior EKG earlier today. In the ED, has received 325 mg aspirin, 10 mg IV diltiazem, 2 mg Versed and was started on Cardizem drip per protocol. He will be admitted for new onset afib with rvr. 63yo M with AUD, tobacco abuse who was admitted to the telemetry unit for new-onset AF/RVR and found to have HFrEF with a large TREVOR thrombus. Hospital course by problem: new-onset AF/RVR large TREVOR thrombus - Rate-controlled with metoprolol tartrate. Loaded with IV digoxin and started on maintenance PO digoxin. Started on apixaban for anticoagulation. Will need close outpatient Cardiology follow-up this week with possible SONIDO-guided cardioversion attempt in 4 weeks. acute HFrEF - Found to have EF 25-30% with severely dilated RV + severe biatrial enlargement - Started on metoprolol. Due to hypotension, RAAS blockade could not be initiated. - Diuresed net negative 7.8L with IV furosemide and discharged on PO furosemide. - Will need outpatient sleep study and ischemic workup to be arranged by Cardiology. - Labs ordered for 1 week post-discharge: BMP, magnesium, BNP, digoxin AUD - No withdrawal noted. Placed on thiamine + folate. Declined Addiciton Medicine consult. tobacco abuse - Started on NRT and counseled to avoid smoking. Time Attestation Discharge Coordination Time (in mins): 45 Quality: Safe Use of Opioids Does Pt have an Active Cancer Diagnosis on the Problem List?: No Quality: Stroke Does the patient have a stroke diagnosis?: No Physical Exam Vital Signs: Vital Signs: Last Vital Signs Temp 98.1 F 01/07/24 07:32 Pulse 94 01/07/24 07:32 Resp 16 01/07/24 07:32 BP 106/80 01/07/24 07:32 Pulse Ox 94 01/07/24 07:32 O2 Del Method Room Air 01/07/24 07:32 O2 Flow Rate 2 01/03/24 15:29 BMI result Body Mass Index 33.6 Gen: in no acute distress HEENT: sclera anicteric, moist mucus membranes Neck: supple Lungs: clear to auscultation bilaterally Heart: irregular, no murmurs Abd: soft, non-tender, non-distended Ext: no edema Skin: warm/well-perfused Neuro: alert and oriented x3, no focal findings Psych: appropriate affect DS: Data Data Completed and Pending Completed studies during hospitalization [Text1]: Laboratory Results WBC 11.0 X10*3/uL (4.8-10.8) H 01/02/24 06:07 RBC 5.23 X10*6/uL (4.60-5.80) 01/02/24 06:07 Hgb 14.9 g/dl (14.0-18.0) 01/02/24 06:07 Hct 45.7 % (42.0-52.0) 01/02/24 06:07 MCV 87.4 fL (80.0-98.0) 01/02/24 06:07 MCH 28.5 pg (27.0-33.0) 01/02/24 06:07 MCHC 32.6 g/dl (31.0-36.0) 01/02/24 06:07 RDW 14.4 % (11.0-16.0) 01/02/24 06:07 Plt Count 220 X10*3/uL (160-400) 01/02/24 06:07 MPV 11.3 fL (9.4-12.4) 01/02/24 06:07 Immature Gran % (Auto) 0.5 % (0.0-0.4) H 01/02/24 06:07 Neut % (Auto) 46.1 % (45-73) 01/02/24 06:07 Lymph % (Auto) 41.4 % (20-40) H 01/02/24 06:07 [place] % (Auto) 7.9 % (2-11) 01/02/24 06:07 Eos % (Auto) 3.4 % (0-4) 01/02/24 06:07 Baso % (Auto) 0.7 % (0-2) 01/02/24 06:07 Lymph # (Auto) 4.6 X10*3/uL (1.2-4.9) 01/02/24 06:07 [place] # (Auto) 0.9 X10*3/uL (0.1-1.2) 01/02/24 06:07 Eos # (Auto) 0.4 X10*3/uL (0.0-0.4) 01/02/24 06:07 Baso # (Auto) 0.1 X10*3/uL (0.0-0.2) 01/02/24 06:07 Abs Immat Gran (auto) 0.05 X10*3/uL (0.00-0.03) H 01/02/24 06:07 Absolute Neuts (auto) 5.1 x10*3/uL (2.0-8.3) 01/02/24 06:07 Absolute Nucleated RBC 0.000 X10*3/uL (0.0-0.012) 01/02/24 06:07 Nucleated RBC % (auto) 0.0 /100WBC (0.0-0.2) 01/02/24 06:07 PT 19.3 SEC (11.1-13.3) H 01/02/24 06:07 INR 1.6 (0.9-1.1) H 01/02/24 06:07 APTT 34.5 SEC (26.0-36.8) 01/01/24 14:46 aPTT Heparin Protocol 86.0 SEC (53-77.9) H D 01/02/24 06:07 D-Dimer High Sensitivty 203 NG/ML 01/01/24 12:58 Sodium 140 mmol/L (135-145) 01/07/24 06:43 Potassium 3.9 mmol/L (3.3-5.1) 01/07/24 06:43 Chloride 102 mmol/L (96-108) 01/07/24 06:43 Carbon Dioxide 28 mmol/L (22-29) 01/07/24 06:43 Anion Gap 14 (12-20) 01/07/24 06:43 BUN 25 mg/dL (9-16) H 01/07/24 06:43 Creatinine 0.89 mg/dL (0.5-1.4) 01/07/24 06:43 Estim Creat Clear Calc 106.4 01/07/24 06:43 Estimated GFR > 60 01/07/24 06:43 Random Glucose 98 mg/dL (60-115) 01/07/24 06:43 Calcium 9.4 mg/dL (8.4-10.2) 01/07/24 06:43 Magnesium 2.4 mg/dL (1.6-2.6) 01/07/24 06:43 Troponin I High Sens 355.8 ng/L (<3.5-35.0) H* 01/01/24 14:11 B-Natriuretic Peptide 776 pg/mL (<100) H 01/07/24 06:43 Triglycerides 117 mg/dL (<150) 01/01/24 12:58 Cholesterol 153 mg/dL (<200) 01/01/24 12:58 LDL Cholesterol, Calc 96 mg/dL (<100) 01/01/24 12:58 HDL Cholesterol 34 mg/dL (>40) L 01/01/24 12:58 Urine Opiates Screen Not Detected (Not Detect) 01/02/24 01:08 Ur Buprenorphine Scrn Not Detected ng/mL (Not Detect) 01/02/24 01:08 Ur Oxycodone Screen Not Detected ng/mL (Not Detect) 01/02/24 01:08 Urine Methadone Screen Not Detected ng/mL (Not Detect) 01/02/24 01:08 Urine Fentanyl Screen Not Detected (Not Detect) 01/02/24 01:08 Ur Barbiturates Screen Not Detected (Not Detect) 01/02/24 01:08 Ur Phencyclidine Scrn Not Detected (Not Detect) 01/02/24 01:08 Ur Amphetamines Screen Not Detected (Not Detect) 01/02/24 01:08 U Benzodiazepines Scrn POSITIVE (Not Detect) H 01/02/24 01:08 Urine Cocaine Screen Not Detected (Not Detect) 01/02/24 01:08 U Marijuana (THC) Screen POSITIVE (Not Detect) H 01/02/24 01:08 Impressions Chest X-Ray 01/01/24 13:15 IMPRESSION: Mild interstitial edema. TTE 01/02/24 1. Severely reduced LV ejection fraction 25-30% 2. Severely dilated right ventricle 3. Severe biatrial enlargement 4. Normal RV systolic pressure but significantly elevated right atrial pressures 5. No gross pericardial effusion TTE 01/03/24 1. Large thrombus in the left atrial appendage 2. Dilated left ventricle with severely reduced LV ejection fraction 20-25% 3. Biatrial enlargement 4. Mild mitral regurgitation 5. No intracardiac shunting 6. Mi atherosclerotic changes noted in the ascending, descending thoracic aorta Discharge Plan Discharge Anticipated Discharge Date/Time: 01/07/24 17:52 Patient Disposition: Home Health Service Discharge Diagnosis: Congestive heart failure/cardiomyopathy Atrial fibrillation Referrals: Riccardo Diamond MD [Primary Care Provider] - 1 Week Malcolm Krishnamurthy MD [Physician] - 1 Week Discharge Medications: New nicotine 21 mg/24 hr Patch 24 Hour 21 mg transdermal DAILY Qty: 30 0RF Eliquis 5 mg Tablet 5 mg PO BID Qty: 60 0RF metoprolol tartrate 25 mg tablet 12.5 mg PO BID Qty: 30 0RF potassium chloride 20 mEq Tablet,Er Particles/Crystals 20 meq PO DAILY Qty: 30 0RF folic acid 1 mg Tablet 1 mg PO DAILY Qty: 30 0RF thiamine mononitrate (vit B1) 100 mg Tablet 100 mg PO DAILY Qty: 30 0RF furosemide 40 mg tablet 40 mg PO BID Qty: 60 0RF digoxin 250 mcg (0.25 mg) tablet 250 mcg PO DAILY Qty: 30 0RF Continued cetirizine [Zyrtec] 10 mg tablet,chewable 10 mg PO DAILY Discharge Orders: Discharge Order (Routine); Ordered 01/07/24 Ordered By: Tanvi Tidwell Diet: Low salt diet Activity on Discharge: As tolerated Stand Alone Forms: Patient Portal Discharge page Print Language: [place] Other Ambulatory Orders: Basic Metabolic Panel (Routine) Timeframe: 1 Week Facility: [facility] - Location: Laboratory Ordered By: Tanvi Tidwell B Type Natriuretic Peptide (Routine) Timeframe: 1 Week Facility: [facility] - Location: Laboratory Ordered By: Tanvi Tidwell Digoxin (Routine) Timeframe: 1 Week Facility: [facility] - Location: Laboratory Ordered By: Tanvi Tidwell Magnesium (Routine) Timeframe: 1 Week Facility: [facility] - Location: Laboratory Ordered By: Tanvi Tidwell Care Plan Goals: heart health Health Concerns: Congestive heart failure/cardiomyopathy Atrial fibrillation Plan of Treatment: Low-sodium diet: less than 2000 mg of sodium daily. Weigh yourself daily and call your doctor if your weight goes up by more than 3 lb/day or 5 lb/week. take furosemide 40 mg twice daily to prevent fluid accumulation take metoprolol tartrate 12.5 mg [half of a 25 mg tab] twice daily PLUS digoxin 250 mcg once daily to control heart rate and to help your heart recover take apixaban 5 mg twice daily to prevent strokes stop smoking; use nicotine patch to quit stop alcohol; take thiamine and folate labs in 1 week: BMP, magnesium, BNP, digoxin [check just before taking your usual dose, or 6-8 hours after your usual dose] follow up with [facility] [Dr Krishnamurthy, director of mobile marketing] this week; you will need stress testing, sleep study, and possible cardioversion Please follow up with your primary care doctor within 1 week. Return to the hospital if you experience recurrent or worsening symptoms. Assessment: See Discharge Summary.
[2024-01-07 11:34] VITALS: BP 121/69; PULSE 51; RESP 20; TEMP 36.1; O2SAT 96
--- NOTE | 2024-01-07 11:40 | P.PNCA_ITS ---
Subjective Subjective Date of Service: 01/07/24 Principal diagnosis: CHF, atrial fibrillation Interval history: Patient says he has feeling a whole lot better today. Shortness of breath is much improved. He said he had a large bowel movement yesterday and feels better since then. Heart rate is much better control. Denies any lightheadedness, syncope. Blood pressures remained stable. Review of Systems Constitutional: Reports no additional constitutional complaints Physical Exam Vital Signs: Last Vital Signs Temp 97 F 01/07/24 11:34 Pulse 51 01/07/24 11:34 Resp 20 01/07/24 11:34 BP 121/69 01/07/24 11:34 Pulse Ox 96 01/07/24 11:34 O2 Del Method Room Air 01/07/24 11:34 O2 Flow Rate 2 01/03/24 15:29 BMI result Body Mass Index 33.6 Const General: cooperative, comfortable, no acute distress, alert and awake Nutritional Appearance: obese Orientation/consciousness: patient oriented x3 Neck Neck: Yes trachea midline, Yes supple and Yes no JVD Resp Effort & Inspection: normal respiratory effort Auscultation: clear to auscultation bilaterally Cardio Jugular venous distension: no JVD Palpation: abnormal PMI displaced PMI Rhythm: abnormal rhythm irregularly irregular Heart sounds: S1 normal heart sound present, S2 normal heart sound present, no click, no gallops, no murmurs and no rubs GI Auscultation: normal bowel sounds Neuro General: patient oriented x3 and no focal motor deficits Extrem General: No clubbing, No cyanosis and Yes edema Objective Labs and Meds 01/02/24 06:07 01/07/24 06:43 Lab results: Laboratory Results - last 24 hr 01/07/24 06:43 Sodium 140 Potassium 3.9 Chloride 102 Carbon Dioxide 28 Anion Gap 14 BUN 25 H Creatinine 0.89 Estim Creat Clear Calc 106.4 Estimated GFR > 60 Random Glucose 98 Calcium 9.4 Magnesium 2.4 B-Natriuretic Peptide 776 H Progress Note: A&P Assessment and plan (1) Acute HFrEF (heart failure with reduced ejection fraction): Status: Acute Assessment and Plan: Acute congestive heart failure with marked LV systolic dysfunction most likely tachycardia mediated. Ischemia needs to be ruled out. Will schedule him for outpatient myocardial perfusion imaging. Continue current rate control regimen. Could not tolerate other neurohormonal modulation due to low blood pressure. Will introduce slowly as outpatient. Add Jardiance 10 mg to his regimen. Continue metoprolol for rate control. Add digoxin. Avoidance of alcohol was discussed. Will require sleep study as outpatient. Switch to oral diuretic therapy. Heart failure management discussed. Daily weight monitoring avoidance of salt loading was discussed. He understands agrees. Will set up for follow- up this week. (2) Atrial fibrillation with rapid ventricular response: Status: Acute Assessment and Plan: New onset atrial fibrillation rapid ventricular response. Could not pursue cardioversion related to large left atrial thrombus. Continue full oral anticoagulation Eliquis. Complete abstinence from alcohol was discussed. Switch to oral digoxin 0.25 mg daily along with metoprolol therapy. Will set up for outpatient testing including sleep study on Holter monitor. Will follow up in the clinic coming week. Time Spent With Patient Time: Total time managing care of this patient today ____ minutes. Progress Note: Quality Stroke Does the patient have a stroke diagnosis?: No Procedures Date of Service Date of Service: 01/07/24
--- NOTE | 2024-01-07 11:50 | MHC.CM.PN ---
PT WILL DC HOME TODAY WITH [facility] VIA PRIVATE TRANSPORT
== END 2024-01-07 12:13 | disposition home health service (06) | DRG 194 ==
LOC: HO.ED 14:33 → HO.EDOVER 16:19 → HO.IMC 22:00
PROVIDERS: Hospitalist; Internal Medicine Cardiovascular Disease; Admitting Provider Physician Assistant; Emergency Provider Emergency Medicine; PCP Internal Medicine; Visit Provider Family Medicine
PROC: B24BZZ4 Ultrasonography of Heart with Aorta, Transesophageal (ICD-10-PCS; CPT 93312; principal; 2024-01-03 12:00)
DX: I50.21 Acute systolic (congestive) heart failure (principal); I48.19 Other persistent atrial fibrillation; E66.01 Morbid (severe) obesity due to excess calories; F17.210 Nicotine dependence, cigarettes, uncomplicated; I51.3 Intracardiac thrombosis, not elsewhere classified; F10.90 Alcohol use, unspecified, uncomplicated; G47.30 Sleep apnea, unspecified; Z71.6 Tobacco abuse counseling; Z68.38 Body mass index [BMI] 38.0-38.9, adult; Z79.899 Other long term (current) drug therapy
CPT/HCPCS: 36415; 71045; 80048; 80061; 80307; 83735; 83880; 84484; 85025; 85027; 85379; 85610; 85730; 93005; 93306; 97162; 99285; J1160; J1644; J1940; J2250; Q9957

== ENCOUNTER 2024-01-01 16:11 | Outpatient (BNV) | payer BC, SELFPAY | END 2024-01-02 07:00 | PROVIDERS: Admitting Provider Physician Assistant; Emergency Provider Emergency Medicine; PCP Internal Medicine; Visit Provider Internal Medicine Cardiovascular Disease | DX: I48.91 Unspecified atrial fibrillation (principal); I51.7 Cardiomegaly; I35.8 Other nonrheumatic aortic valve disorders; I34.0 Nonrheumatic mitral (valve) insufficiency | CPT/HCPCS: 93306 ==

== ENCOUNTER 2024-01-01 16:11 | Outpatient (BNV) | payer BC, SELFPAY | END 2024-01-03 07:58 | PROVIDERS: Admitting Provider Physician Assistant; Emergency Provider Emergency Medicine; PCP Internal Medicine; Visit Provider Internal Medicine Cardiovascular Disease | DX: I51.3 Intracardiac thrombosis, not elsewhere classified (principal); I34.0 Nonrheumatic mitral (valve) insufficiency; I36.1 Nonrheumatic tricuspid (valve) insufficiency; I35.8 Other nonrheumatic aortic valve disorders | CPT/HCPCS: 76376; 93312 ==

== ENCOUNTER → 2024-01-01 16:11 | Outpatient (BNV) | payer BC, SELFPAY | PROVIDERS: Admitting Provider Physician Assistant; Emergency Provider Emergency Medicine; PCP Internal Medicine; Visit Provider Physician Assistant | DX: I50.9 Heart failure, unspecified (principal); I48.91 Unspecified atrial fibrillation; R79.89 Other specified abnormal findings of blood chemistry | CPT/HCPCS: 99223; 99232; 99233; 99239; G0180 ==

== ENCOUNTER → 2024-01-01 16:11 | Outpatient (BNV) | payer BC, SELFPAY | PROVIDERS: Admitting Provider Physician Assistant; Emergency Provider Emergency Medicine; PCP Internal Medicine; Visit Provider Internal Medicine Cardiovascular Disease | DX: I50.21 Acute systolic (congestive) heart failure (principal); I48.91 Unspecified atrial fibrillation | CPT/HCPCS: 99222; 99233; 99499 ==

== ENCOUNTER 2024-01-15 14:13 | Outpatient (REF) | payer BC, SELFPAY ==
[2024-01-15 15:06] LABS: Anion Gap 12 (12-20); Blood Urea Nitrogen 27 mg/dL (9-16); Calcium 10.1 mg/dL (8.4-10.2); Carbon Dioxide 33 mmol/L (22-29); Chloride 102 mmol/L (96-108); Digoxin 1.1 ng/mL (0.8-2.0); Estimated Glomerular Filt Rate > 60; Glucose Random 112 mg/dL (60-115); Magnesium 2.2 mg/dL (1.6-2.6); Potassium 4.8 mmol/L (3.3-5.1); Sodium 142 mmol/L (135-145)
[2024-01-15 15:31] LABS: B Type Natriuretic Peptide 478 pg/mL (<100)
== END 2024-01-15 14:14 | disposition home or self-care (01) ==
LOC: HO.LAB 14:13
PROVIDERS: Absent Provider Family Medicine; PCP Internal Medicine; Visit Provider Internal Medicine Cardiovascular Disease
DX: I50.21 Acute systolic (congestive) heart failure (principal); I48.91 Unspecified atrial fibrillation
CPT/HCPCS: 36415; 80048; 80162; 83735; 83880

== ENCOUNTER 2024-02-07 12:00 | Day surgery (SDC) | payer BC, SELFPAY ==
--- NOTE | 2024-02-05 13:38 | P.CONAN_ITS ---
Documented by User: Cintia Seals NP 02/05/24 13:43 HPI - Anesthesia Eval Consult details Narrative: 63yo M for Transesophageal Echocardiogram, Cardioversion Eliquis for afib [facility] [place]07[place] Hospital course: 63yo M with AUD, tobacco abuse who was admitted to the telemetry unit for new- onset AF/RVR and found to have HFrEF with a large TREVOR thrombus. Hospital course by problem: new-onset AF/RVR large TREVOR thrombus - Rate-controlled with metoprolol tartrate. Loaded with IV digoxin and started on maintenance PO digoxin. Started on apixaban for anticoagulation. Will need close outpatient Cardiology follow-up this week with possible SONIDO-guided cardioversion attempt in 4 weeks. acute HFrEF - Found to have EF 25-30% with severely dilated RV + severe biatrial enlargement - Started on metoprolol. Due to hypotension, RAAS blockade could not be initiated. - Diuresed net negative 7.8L with IV furosemide and discharged on PO furosemide. - Will need outpatient sleep study and ischemic workup to be arranged by Cardiology. - Labs ordered for 1 week post-discharge: BMP, magnesium, BNP, digoxin AUD (ETOH) - No withdrawal noted. Placed on thiamine + folate. Declined Addiciton Medicine consult. tobacco abuse - Started on NRT and counseled to avoid smoking. Anesthesia Pre-Procedure Meds Is the patient on any of the following meds?: SGLT2 Inhib PMFSH Active Problems Active Problems: All Active Problems Alcohol use disorder (Acute) Tobacco abuse (Acute) Left atrial thrombus (Acute) Atrial fibrillation with rapid ventricular response (Acute) Acute HFrEF (heart failure with reduced ejection fraction) (Acute) Acute congestive heart failure (Acute) Elevated troponin (Acute) CHF (congestive heart failure) (Acute) Atrial fibrillation (Acute) History of prostate cancer (Acute) Elevated PSA (Acute) Past Medical History Medical History Afib CHF (congestive heart failure) Hay fever Family History Family history of problems with anesthesia: No Surgical History Surgical History Hx of hand surgery History of cataract surgery History of Problems with Anesthesia: No Social History Social History Household Members: Spouse Household Members Other:: 2 Housing: House Do you presently have visiting nurse or other home services: No Alcohol intake: current Patient Tobacco Use Status: Former Tobacco user Tobacco use type: Cigarette Cigarette Packs Per Day: 0.5 Cigarettes Per Day: 10.0 Second Hand Smoke Exposure: No Use of substances other than those prescribed or required for medical reasons: Yes Substance Use Type: Marijuana Are you DNR?: No Advance Directives: No Advance Directives Information Provided: Yes service: No Meds Allergies Allergy/AdvReac Type Severity Reaction Status Date / Time No Known Allergies Allergy Verified 01/01/24 12:14 Home Medications ?Medication ?Instructions ?Recorded ?Confirmed ?Last Taken ?Type cetirizine 10 mg chewable tablet 10 mg PO DAILY 09/06/23 01/01/24 12/31/23 History (Zyrtec) Exam Pertinent Lab Results Pertinent Lab Results: Laboratory Tests 01/02/24 01/15/24 06:07 14:28 WBC 11.0 H Hgb 14.9 Hct 45.7 Plt Count 220 Sodium 142 Potassium 4.8 D Chloride 102 Carbon Dioxide 33 H BUN 27 H Creatinine 1.02 Narrative Narrative: SONIDO 12/2023 Conclusion: ??? 1. Large thrombus in the left atrial appendage 2. Dilated left ventricle with severely reduced LV ejection fraction 20-25% next 3. Biatrial enlargement 4. Mild mitral regurgitation 5. No intracardiac shunting 6. Mi atherosclerotic changes noted in the ascending, descending thoracic aorta EKG 12/2023 Vent. Rate : 096 BPM Atrial Rate : 000 BPM P-R Int : 000 ms QRS Dur : 136 ms QT Int : 410 ms P-R-T Axes : 000 -79 127 degrees QTc Int : 517 ms Atrial fibrillation with premature ventricular or aberrantly conducted complexes Left axis deviation Right bundle branch block Inferior infarct (cited on or before 01-JAN-2024) T wave abnormality, consider lateral ischemia Abnormal ECG When compared with ECG of 01-JAN-2024 12:32, No significant change was found Assessment and Plan Assessment Anesthesia Assessment: Chart Reviewed Final Anesthetic Review Family History of Problems with Anesthesia: No History of Problems with Anesthesia: No Documented by User: [place] Burnett MD 02/07/24 13:26 PMFSH Past Medical History Medical History Afib CHF (congestive heart failure) Hay fever Surgical History Surgical History Hx of hand surgery History of cataract surgery Social History Social History Household Members: Spouse Household Members Other:: 2 Housing: House Do you presently have visiting nurse or other home services: No Alcohol intake: current Patient Tobacco Use Status: Former Tobacco user Tobacco use type: Cigarette Cigarette Packs Per Day: 0.5 Cigarettes Per Day: 10.0 Second Hand Smoke Exposure: No Use of substances other than those prescribed or required for medical reasons: Yes Substance Use Type: Marijuana Are you DNR?: No Advance Directives: No Advance Directives Information Provided: Yes service: No Meds Allergies Allergy/AdvReac Type Severity Reaction Status Date / Time No Known Allergies Allergy Verified 01/01/24 12:14 Home Medications ?Medication ?Instructions ?Recorded ?Confirmed ?Last Taken ?Type cetirizine 10 mg chewable tablet 10 mg PO DAILY 09/06/23 01/01/24 12/31/23 History (Zyrtec) Assessment and Plan Assessment Anesthesia Assessment: Anesthesia Plan Discussed Final Anesthetic Review NPO: Yes ASA Class: III Final Preanesthetic Review: Meds/Allgs Chart Reviewed, Consent Obtained/Reviewed and Anes Risks/Benef Reviewed Patient Risk: Intermediate Procedure Risk: Intermediate Anesthetic Plan Anesthetic Plan: MAC: Disposition: Standard PACU
--- NOTE | 2024-02-07 13:09 | CA_ITS ---
Transesophageal Echocardiogram Patient (Last, First, Middle): Lennox Marrero R Gender: Male Date of : 1960 Age: 63 Procedure Date: 02/07/2024 Procedure Type: Transesophageal Echocardiogram Location: OP Height: 177.8 cm Weight: 111.58 kg BSA: 2.28 m2 Heart Rate: bpm Records Section Supervisor: GISELA Referring MD: Malcolm Krishnamurthy MD [employer] Systems Adminstrator: Malcolm Krishnamurthy MD Symptoms: Pre cardioversion with prior history of TREVOR thromb Conclusion: ??? 1. Moderate to severely reduced LV ejection fraction 30-35% 2. No intra cardiac thrombi or masses 3. Biatrial enlargement, right greater than left Findings Procedure Information Consent was obtained prior to the procedure. Pre SONIDO oral cavity was checked and revealed mild overcrowding. The adult 3D probe was passed with no difficulty. Left Ventricle Normal left ventricular cavity size. There is normal left ventricular wall thickness. The left ventricular systolic function is moderate to severely decreased. The visually estimated ejection fraction is between 30-35%. There is moderate global hypokinesis. Diastolic function is indeterminate on the basis of available data. Right Ventricle Normal right ventricular cavity size. Atria The left atrium is mildly dilated. There is lipomatous hypertrophy of the interatrial septum. There is no evidence of interatrial shunt. smoke formation seen within the left atrial appendage without any thrombus seen within left atrium. Left atrial appendage was free of any thrombus. The left atrial appendage ejection velocity is reduced. The right atrium is moderately dilated. The right atrial free of any clots or masses. Right atrial appendage was free of any thrombus. Aortic Valve There is mild calcification of the aortic valve. Mitral Valve There is mild anterior and posterior mitral leaflet thickening. There is trace mitral valve regurgitation. There is no mitral valve stenosis. Great Vessels All visible segments of the aorta are normal in size. Venous The inferior vena cava is normal in size and collapses greater than 50% with inspiration. Pericardium/Pleural There is no evidence of pericardial effusion. Prior Study Comparison Changes noted compared to prior study. no left atrial appendage thrombus noted. LV systolic function appears improved with improved LV cavity size Updated by Malcolm Krishnamurthy on 03:49 PM with Status of Final Malcolm Krishnamurthy MD electronically signed on 02/07/2024 3:49:18 PM with status of Final
[2024-02-07 13:12] VITALS: BP 124/85; PULSE 90; RESP 18; TEMP 36.1; O2SAT 95; BMI 34.3
--- NOTE | 2024-02-07 13:12 | P.HPSUR_ITS ---
Pre-Procedural Eval Section A - 24 Hr Update-Section A only Date of Service: 02/07/24 Section B - Complete if H&P > 30 days Chief Complaint: Persistent atrial fibrillation Details of Present Illness: Patient admitted with decompensated congestive heart failure noted to be in new onset atrial fibrillation severe cardiomyopathy. Subsequently by SONIDO noted to have left atrial appendage thrombus. Anticoagulated and treated with rate control and brought back for SONIDO guided car dioversion Relevant Family History (Specify if Yes): No Relevant Social History: Alcohol Use Present Medications: see Short Stay Collaborative assessment Medical History: Significant History Allergies: Allergies Allergy/AdvReac Type Severity Reaction Status Date / Time No Known Allergies Allergy Verified 01/01/24 12:14 Review of Systems Sugical H&P ROS: Negative: Constitution, Respiratory, Neurological, Psychiatric, Hem-Onc, Allergic/Immunologic, Gastrointestinal, Endocrine and Eyes/Ears/Nose/Throat and Yes, Specify: Cardiovascular Exam Surgical H&P Exam: Normal: HEENT, Normal: Extremities, Normal: Abdomen, Normal: Skin and Normal: Neurological, Not Evaluated: Lungs and Significant Findings: Heart Plan Diagnosis/Plan: Unchanged I have reviewed the history and physical and performed a pertinent physical examination on my patient. No changes have occurred unless specified. Time Spent With Patient Time: Total time managing care of this patient today ____ minutes.
[2024-02-07] MEDS: 0.9 % Sodium Chloride 1,000 ML 50 ML IVCONT (13:25)
[2024-02-07] MEDS: Apixaban 5 MG TABLET PO (13:25)
--- NOTE | 2024-02-07 13:26 | HO.ANESPROP2 ---
[facility] Active Problems Active Problems: All Active Problems Alcohol use disorder (Acute) Tobacco abuse (Acute) Left atrial thrombus (Acute) Atrial fibrillation with rapid ventricular response (Acute) Acute HFrEF (heart failure with reduced ejection fraction) (Acute) Acute congestive heart failure (Acute) Elevated troponin (Acute) CHF (congestive heart failure) (Acute) Atrial fibrillation (Acute) History of prostate cancer (Acute) Elevated PSA (Acute) Past Medical History Medical History Afib CHF (congestive heart failure) Hay fever Family History Family history of problems with anesthesia: No Surgical History Surgical History Hx of hand surgery History of cataract surgery History of Problems with Anesthesia: No Social History Social History Household Members: Spouse Household Members Other:: 2 Housing: House Do you presently have visiting nurse or other home services: No Alcohol intake: current Patient Tobacco Use Status: Former Tobacco user Tobacco use type: Cigarette Cigarette Packs Per Day: 0.5 Cigarettes Per Day: 10.0 Second Hand Smoke Exposure: No Use of substances other than those prescribed or required for medical reasons: Yes Substance Use Type: Marijuana Are you DNR?: No Advance Directives: No Advance Directives Information Provided: Yes service: No Meds Allergies Allergy/AdvReac Type Severity Reaction Status Date / Time No Known Allergies Allergy Verified 01/01/24 12:14 Active Medications: Current Medications Albuterol Sulfate (Albuterol Sulfate (0.083%) 2.5 Mg/3 Ml Vial.Neb) 2.5 mg INHALE ONCE PRN PRN Reason: Shortness of Breath/Wheezing Sodium Chloride (Ns) 1,000 mls @ 50 mls/hr IVCONT .Q20H REBEKAH Last Admin: 02/07/24 13:25 Dose: 50 mls/hr Home Medications ?Medication ?Instructions ?Recorded ?Confirmed ?Last Taken ?Type cetirizine 10 mg chewable tablet 10 mg PO DAILY 09/06/23 01/01/24 12/31/23 History (Zyrtec) Exam Height,Weight and Vital Signs: Height 5 ft 10 in Weight 108.409 kg Last Vital Signs Temp 96.9 F 02/07/24 13:12 Pulse 90 02/07/24 13:12 Resp 18 02/07/24 13:12 BP 124/85 02/07/24 13:12 Pulse Ox 95 02/07/24 13:12 O2 Del Method Room Air 02/07/24 13:12 Airway Mallampati Class: III TM Dist: >3cm Neck ROM: Full Loose/Missing/Broken Teeth: No Heart: RRR Lungs: CTA Assessment and Plan Assessment Anesthesia Assessment: Anesthesia Plan Discussed and Chart Reviewed Final Anesthetic Review Family History of Problems with Anesthesia: No History of Problems with Anesthesia: No NPO: Yes ASA Class: III and Emergency Final Preanesthetic Review: Meds/Allgs Chart Reviewed, Consent Obtained/Reviewed and Anes Risks/Benef Reviewed Patient Risk: Intermediate Procedure Risk: Intermediate Anesthetic Plan Anesthetic Plan: MAC: Disposition: Standard PACU
[2024-02-07 14:13] VITALS: BP 116/72; PULSE 81; RESP 18; TEMP 36.1; O2SAT 95
[2024-02-07 14:18] VITALS: BP 120/74; PULSE 82; RESP 16; O2SAT 96
--- NOTE | 2024-02-07 14:21 | ECG_ITS ---
Test Reason : post shannon Blood Pressure : / mmHG Vent. Rate : 081 BPM Atrial Rate : 081 BPM P-R Int : 186 ms QRS Dur : 142 ms QT Int : 418 ms P-R-T Axes : 022 -70 050 degrees QTc Int : 485 ms Normal sinus rhythm Possible Left atrial enlargement Left axis deviation Right bundle branch block Inferior infarct (cited on or before 01-JAN-2024) Abnormal ECG When compared with ECG of 01-JAN-2024 14:54, Sinus rhythm has replaced Atrial fibrillation Questionable change in initial forces of Inferior leads T wave inversion no longer evident in Lateral leads Referred By: Malcolm Krishnamurthy Electronically Signed By:Lorenzo Segura
--- NOTE | 2024-02-07 14:21 | HO.CARDIVERS ---
Cardioversion Procedure Note Cardioversion Date of Procedure: 02/07/2024 Ordering Provider: Jessica Krishnamurthy Performing Provider: Jessica Krishnamurthy Indication for Procedure: Persistent atrial fibrillation with LV systolic dysfunction cardiomyopathy Pre-Op Diagnosis: Same Post-Op Diagnosis: Normal sinus rhythm Performed with Transesophageal Echo: Yes SONIDO findings (if SONIDO Performed): Dictated separately. No left atrial appendage thrombus noted History: See my prior note Consent: Verbal and Written consent was obtained from the patient before starting. The patient was made aware of the risk of synchronized cardioversion including benefits and alternatives Procedure: After consent obtained, cardioversion pads were attached in anteroposterior configuration and the patient was sedated by the anesthesia team. Once adequate sedation achieved, patient was delivered 200 joules of biphasic synchronized energy in anteroposterior configuration Complications: None Impression: Successful conversion to sinus rhythm Recommendations: 1. 12 lead EKG 2. Stop digoxin 3. Continue full oral anticoagulation 4. Follow up in the office with EKG in 4 weeks
[2024-02-07 14:23] VITALS: BP 116/79; PULSE 80; RESP 16; O2SAT 97
[2024-02-07 14:28] VITALS: BP 125/76; PULSE 77; RESP 16; O2SAT 96
[2024-02-07 14:43] VITALS: BP 134/79; PULSE 74; RESP 16; TEMP 36.2; O2SAT 96
== END 2024-02-07 15:28 | disposition home or self-care (01) ==
PROVIDERS: PCP Internal Medicine; Visit Provider Internal Medicine Cardiovascular Disease
PROC: (CPT 93312; principal; 2024-02-07 13:30)
PROC: 5A2204Z Restoration of Cardiac Rhythm, Single (ICD-10-PCS; CPT 93312; 2024-02-07 13:30)
DX: I48.19 Other persistent atrial fibrillation (principal); I50.1 Left ventricular failure, unspecified; I42.9 Cardiomyopathy, unspecified; Z79.01 Long term (current) use of anticoagulants; Z79.52 Long term (current) use of systemic steroids; Z87.891 Personal history of nicotine dependence
CPT/HCPCS: 93312; 92960; 93005; J2250; J2704; J3010

== ENCOUNTER → 2024-02-07 12:00 | Outpatient (BNV) | payer BC, SELFPAY | PROVIDERS: PCP Internal Medicine; Visit Provider Internal Medicine Cardiovascular Disease | DX: I48.91 Unspecified atrial fibrillation (principal); I51.89 Other ill-defined heart diseases; I51.7 Cardiomegaly; I35.8 Other nonrheumatic aortic valve disorders | CPT/HCPCS: 76376; 92960; 93010; 93312 ==

== ENCOUNTER 2024-02-12 11:42 | Outpatient (REF) | payer BC, SELFPAY ==
[2024-02-12 13:18] LABS: MANUAL DIFF FLAG NO
[2024-02-12 13:32] LABS: Basophils Absolute Auto 0.1 X10*3/uL (0.0-0.2); Basophils Percent Auto 0.8 % (0-2); Eosinophils Absolute Auto 0.5 X10*3/uL (0.0-0.4); Eosinophils Percent Auto 5.1 % (0-4); Hematocrit 51.1 % (42.0-52.0); Hemoglobin 17.3 g/dl (14.0-18.0); Imm Gran Pct Auto 0.9 % (0.0-0.4); Lymphocytes Absolute Auto 4.2 X10*3/uL (1.2-4.9); Mean Corpuscular HGB Conc 33.9 g/dl (31.0-36.0); Mean Corpuscular Hemoglobin 28.2 pg (27.0-33.0); Mean Corpuscular Volume 83.2 fL (80.0-98.0); Mean Platelet Volume 10.5 fL (9.4-12.4); Monocytes Absolute Auto 0.9 X10*3/uL (0.1-1.2); Neutrophils Absolute Auto 4.9 x10*3/uL (2.0-8.3); Neutrophils Percent Auto 46.2 % (45-73); Platelet Count 239 X10*3/uL (160-400); Red Blood Count 6.14 X10*6/uL (4.60-5.80); Red Cell Distribution Width 13.7 % (11.0-16.0); White Blood Count 10.7 X10*3/uL (4.8-10.8)
[2024-02-12 13:44] LABS: Troponin-I High Sensitivity 4.5 ng/L (<3.5-35.0)
[2024-02-12 13:48] LABS: Alanine Aminotransferase 32 U/L (0-40); Albumin Level 3.6 g/dL (3.5-5.0); Alkaline Phosphatase 88 U/L (39-117); Anion Gap 16 (12-20); Aspartate Amino Transferase 23 U/L (5-37); Bilirubin Total 0.3 mg/dL (0.0-1.0); Blood Urea Nitrogen 17 mg/dL (9-16); Calcium 9.3 mg/dL (8.4-10.2); Carbon Dioxide 25 mmol/L (22-29); Chloride 103 mmol/L (96-108); Estimated Glomerular Filt Rate > 60; Glucose Random 110 mg/dL (60-115); Magnesium 2.3 mg/dL (1.6-2.6); Potassium 4.2 mmol/L (3.3-5.1); Sodium 140 mmol/L (135-145); Total Protein 6.4 g/dL (6.5-8.0)
== END 2024-02-12 11:43 | disposition home or self-care (01) ==
LOC: HO.10HDL 11:42
PROVIDERS: Visit Provider Internal Medicine
DX: I48.91 Unspecified atrial fibrillation (principal); I10 Essential (primary) hypertension; R21 Rash and other nonspecific skin eruption
CPT/HCPCS: 36415; 80053; 82550; 83735; 84484; 85025

== ENCOUNTER 2024-02-13 12:48 | Outpatient (REF) | payer BC, SELFPAY ==
--- NOTE | ~2024-02-13 | XR_ITS ---
EXAMINATION: XR HIP, LEFT CLINICAL INFORMATION: Pain in left hip COMPARISON: Prior exam November 2023 TECHNIQUE: Two views of the left hip. FINDINGS: No fracture. Alignment is anatomic. Hip joint space is maintained. Punctate area of increased density in the intertrochanteric region unchanged. Arterial calcification present. XR/XR hip LT min 2V IMPRESSION: No change in the x-ray compared with November 2023. Given the stability the findings in the intertrochanteric region on x-ray and the lack of uptake on bone scan is most likely reflects normal variation Calcific atherosclerotic disease
== END 2024-02-13 12:49 | disposition home or self-care (01) ==
LOC: HO.HOSX 12:48
PROVIDERS: Visit Provider Physician Assistant
DX: M25.552 Pain in left hip (principal); I70.202 Unspecified atherosclerosis of native arteries of extremities, left leg
CPT/HCPCS: 73502

== ENCOUNTER 2024-02-13 14:14 | Outpatient (AMB) | payer BC, SELFPAY ==
--- NOTE | 2024-02-13 14:21 | MHC.OFFVIS ---
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 Patient reports bilateral hip pain for about 4 months with his left hip being the worse. His pain presents with any walking or stair use. States his pain is located at the lateral aspect of hip and will travel towards his buttocks. 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 He states he has pain at the lateral aspect of his bilateral hip that radiates to her buttocks. His pain is worse on his left hip and aggravates with prolonged standing and stair use. He denies any catching, locking, or pain with getting in and out of the car. [facility] Medical History Afib CHF (congestive heart failure) Hay fever Surgical History Hx of hand surgery History of cataract surgery Social History (Updated 02/13/24 @ 14:27 by JOSÉ Hernandez) Household Members: Spouse Household Members Other:: 2 Housing: House Do you presently have visiting nurse or other home services: No Alcohol intake: current Patient Tobacco Use Status: Former Tobacco user Tobacco use type: Cigarette Cigarette Packs Per Day: 0.5 Cigarettes Per Day: 10.0 Second Hand Smoke Exposure: No Substance Use Type: Marijuana service: No 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 of Systems Const All systems reviewed & are unremarkable except as noted in HPI and below Physical Exam Vital Signs: BMI result Body Mass Index 34.7 Const General: cooperative, healthy appearing, comfortable, no acute distress, well developed and alert Orientation/consciousness: patient oriented x3 HEENT Head: Yes normal to inspection, Yes normocephalic and Yes atraumatic Eyes General: appearance normal, both eyes and all related structures Resp Effort & Inspection: normal respiratory effort and able to speak in complete sentences Cardio Rate: regular rate Peripheral pulses: Peripheral pulses 2+ throughout GI Palpation (GI): Soft to palpation Skin Lesions: no lesions Rashes: no rashes Neuro General: patient oriented x3 Extrem Other: Left hip: Normal to inspection, ambulates with a slight limp. Has mild discomfort with internal and extension rotation of hip. No significant stiffness. Mild discomfort with hip flexion against resistance. NVI. Results Reviewed Results Reviewed: Xrays were obtained in the office today and personally reviewed by me of the left hip shows mild oa Assessment & Plan Assessment & Plan (1) Bilateral primary osteoarthritis of hip: Code(s): M16.0 - Bilateral primary osteoarthritis of hip Category: Medical Plan We discussed options which include PT, NSAIDs and injections. The patient will defer on the injection today and proceed with PT and NSAIDs. If symptoms persist, she will contact me for an injection, otherwise, PRN. Orders: Orders XR hip LT min 2V Today M25.552 - Pain in left hip PT Evaluation and Treatment Today M16.0 - Bilateral primary osteoarthritis of hip Patient Instructions: Scribed for Yamel Tracy PA-C, by Johan Escobar medical administrative specialist, on 02/13/2024 at 2:15 PM EST.? I, Yamel Tracy PA-C, have personally reviewed and agree with the information entered by the scribe. Coding Level of Care Code New Pt Level 3 (82114) Diagnoses Bilateral primary osteoarthritis of hip M16.0
[2024-02-13 14:29] VITALS: BMI 34.7
== END 2024-02-13 14:59 | disposition home or self-care (01) ==
PROVIDERS: PCP Internal Medicine; Visit Provider Physician Assistant
DX: M16.0 Bilateral primary osteoarthritis of hip (principal)
CPT/HCPCS: 99203

== ENCOUNTER → 2024-02-19 09:07 | Outpatient (REF) | payer BC, SELFPAY ==
--- NOTE | ~2024-02-19 | NM_ITS ---
Myocardial perfusion study Indication: Systolic heart failure to evaluate for myocardial ischemia Technique: The patient was brought in for a Lexiscan perfusion study on 02/19/2024. Patient performed low-level exercise and was injected 0.4 mg of Lexiscan intravenously. Within a minute of injection, 35 mCi of sestamibi was given intravenously. Images were obtained using the SPECT gamma camera interlaced with the gating device. Images were obtained in supine position. Resting perfusion study was performed on 02/21/2024. Patient was administered 35 mCi of sestamibi intravenously at rest. Images were then obtained in supine position. Images obtained with and without CT attenuation. Total DLP 114 mGy-cm. Images were processed with the software and compared side to side in short axis, horizontal long axis and vertical long axis views. Findings: The stress perfusion study showed non attenuated images show severely reduced uptake in the entire inferior wall as well as mildly reduced uptake in the inferoseptal and moderately reduced uptake in the apex of the LV myocardium. Attenuation corrected images show moderately reduced uptake in the apex of the LV myocardium.. The gated study shows reduced LV systolic function with calculated LVEF of 34%. LV cavity is mildly to moderately dilated size. The gated study shows diffusely reduced wall thickening and contraction of all segments. Resting study shows no significant change in perfusion pattern compared to stress perfusion study.. Gating at rest reveals diffusely reduced wall motion with ejection fraction at 27%. The findings are consistent with no reversible defect suggestive of ischemia. Fixed apical defect may suggest nontransmural myocardial infarction. NM/NM cardiolite stress test Impression: 1. Myocardial perfusion imaging study shows no reversible ischemia with fixed apical defect 2. Gated LVEF is 34% 3. Transient ischemic dilatation not present but LV cavity is dilated EKG is nondiagnostic for ischemia
--- NOTE | 2024-02-19 09:10 | CA_ITS ---
Acquisition Time: 2024-02-19 09:17:16 Total Exercise Time: 00:02:00 Test Indications: CHF, AFIB Medications: SEE H Protocol: LEXISCAN Max HR: 088 BPM 55% of Pred: 159 BPM Max BP: 122/066 mmHG Max Work Load: 1.0 METS Pharmacological stress test with Lexiscan injection while sitting, with mild SOB, and mild chest heaviness, without arrhythmias, with normotensive response to injection, with nondiagnsoitiic EKGs. Breathing and chest heaviness resolved. Aminophylline 75mg IVP given to reverse Lexiscan. Nuclear images pending. Test reviewed with Dr. Diallo. Referred By: Malcolm Krishnamurthy Overread By: Nancy Conti
== END ==
LOC: HO.CARD 09:07
PROVIDERS: PCP Internal Medicine; Visit Provider Internal Medicine Cardiovascular Disease
DX: I48.91 Unspecified atrial fibrillation (principal); I50.21 Acute systolic (congestive) heart failure; R79.89 Other specified abnormal findings of blood chemistry
CPT/HCPCS: 78452; 93017; A9500; J0280; J2785

== ENCOUNTER → 2024-02-19 09:10 | Outpatient (BNV) | payer BC, SELFPAY | PROVIDERS: PCP Internal Medicine; Visit Provider Nurse Practitioner | DX: I50.20 Unspecified systolic (congestive) heart failure (principal) | CPT/HCPCS: 78452; 93016; 93018 ==

== ENCOUNTER 2024-02-28 09:55 | Outpatient (AMB) | payer BC, SELFPAY ==
[2024-02-28 10:14] VITALS: BP 120/80; PULSE 85; BMI 35.1
--- NOTE | 2024-02-28 10:14 | MHC.OFFVIS ---
Vital Signs 02/28/24 10:14 Height 5 ft 10 in Weight 244 lb 11.41 oz BMI 35.1 BP 120/80 Blood Pressure Location Lt brachial Position Sitting Pulse 85 Intake Visit Reasons: Follow up post SONIDO/CVR Intake Note: Follow-up SONIDO/CVR with ekg c/o of sob still in afib Diversional Therapist'S Assistant Required: No Allergies No Known Allergies Allergy (Verified 02/13/24 14:29) Medication List - Last Reconciled 02/28/24 by Malcolm Krishnamurthy MD amiodarone 400 mg PO BID apixaban (Eliquis) 5 mg PO BID cetirizine (Zyrtec) 10 mg PO DAILY empagliflozin 10 mg PO DAILY folic acid 1 mg PO DAILY furosemide 40 mg PO BID metoprolol tartrate 12.5 mg (1/2 x 25 mg) PO BID nicotine 21 mg transdermal DAILY potassium chloride ER 20 mEq PO DAILY thiamine mononitrate (vit B1) 100 mg PO DAILY HPI Comments Details: Delfino comes for follow-up after his SONIDO guided cardioversion on February 06. He converted to sinus rhythm and had no left atrial appendage clot on repeat SONIDO. However few days following with his primary care visit he was noted to be in atrial fibrillation again in we were called about it. We started loading amiodarone last week 400 mg b.i.d. which she has been taking. He continues to have symptoms of exertional shortness of breath although denies any orthopnea, PND, leg edema, abdominal distension. He has been taking all his medications regularly. Denies any palpitations. No bleeding issues or neurologic events. Has stopped using alcohol. [facility] Medical History (Updated 02/28/24 @ 14:58 by Malcolm Krishnamurthy MD) CHF (congestive heart failure) Atrial fibrillation with rapid ventricular response Acute HFrEF (heart failure with reduced ejection fraction) Afib CHF (congestive heart failure) Hay fever Surgical History Hx of hand surgery History of cataract surgery Social History (Updated 02/13/24 @ 14:27 by JOSÉ Hernandez) Household Members: Spouse Household Members Other:: 2 Housing: House Do you presently have visiting nurse or other home services: No Alcohol intake: current Patient Tobacco Use Status: Former Tobacco user Tobacco use type: Cigarette Cigarette Packs Per Day: 0.5 Cigarettes Per Day: 10.0 Second Hand Smoke Exposure: No Substance Use Type: Marijuana service: No 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 of Systems Const Denies chills, Denies fatigue, Denies fever(s), Denies frequent falls, Denies weakness, Denies weight gain and Denies weight loss ENT Denies dizziness Card Denies chest pain, Denies leg edema, Denies lightheadedness, Denies palpitations, Reports dyspnea, Denies dyspnea on exertion, Denies orthopnea and Denies other (loss of consciousness) Resp Denies cough, Reports dyspnea and Denies dyspnea on exertion GI Denies hematochezia and Denies change in stool character Musc Denies abnormal gait, Denies muscle weakness, Denies numbness, Denies radiating pain into limb and Denies tingling Neuro Denies abnormal gait, Denies dizziness, Denies frequent falls, Denies numbness, Denies tingling and Denies weakness Endo Denies fatigue and Denies palpitations Physical Exam Vital Signs: Last Vital Signs Pulse 85 02/28/24 10:14 BP 120/80 02/28/24 10:14 BMI result Body Mass Index 35.1 Const General: cooperative, comfortable, no acute distress, alert and awake Nutritional Appearance: obese Orientation/consciousness: patient oriented x3 Neck Neck: Yes trachea midline, Yes supple and Yes no JVD Resp Effort & Inspection: normal respiratory effort Auscultation: clear to auscultation bilaterally Cardio Jugular venous distension: no JVD Palpation: abnormal PMI displaced PMI Rhythm: abnormal rhythm irregularly irregular Heart sounds: S1 normal heart sound present, S2 normal heart sound present, no click, no gallops, no murmurs and no rubs GI Auscultation: normal bowel sounds Skin General skin exam: no rashes or lesions noted Neuro General: patient oriented x3 and no focal motor deficits Extrem General: Yes no clubbing, cyanosis or edema Office Procedures EKG Details: EKG shows atrial fibrillation 85 beats per minute right bundle-branch block and left axis deviation 30177-[id number], Complete Assessment & Plan Assessment & Plan (1) Persistent atrial fibrillation: Code(s): I48.19 - Other persistent atrial fibrillation Category: Medical Plan: Recurrent atrial fibrillation, currently rate control after cardioversion, currently being loaded with amiodarone 400 mg b.i.d.. He will benefit significantly from rhythm control approach. This was discussed with him. Last transesophageal echocardiogram at shown no evidence of left atrial appendage clot in his been taking his oral anticoagulation therapy religiously. Will pursue synchronized cardioversion after complete loading of amiodarone, next week. Continue uninterrupted for oral anticoagulation. Management was discussed in details. Goals of therapy were discussed. Require sleep study to evaluate for sleep apnea which is highly likely in his case. (2) Heart failure with reduced ejection fraction: Code(s): I50.20 - Unspecified systolic (congestive) heart failure Category: Medical Plan: Heart failure with reduced ejection fraction with severe cardiomyopathy at the time of presentation, suspected to be tachycardia mediated. There is no evidence of ischemia by recent myocardial perfusion imaging. Will pursue rhythm control as above. Continue current diuretic regimen. Daily weight monitoring avoidance of salt loading was discussed. Continue Jardiance therapy. Continue metoprolol therapy and has not been able to tolerate other medications due to low blood pressure. Will continue to monitor and follow clinically. Advised to manage her blood pressure at home maintain a log. Follow up in the clinic after cardioversion in 6 weeks time after Holter monitor. Thank you for allowing me to partake in his care Orders: Orders RT home sleep study Today I48.91 - Unspecified atrial fibrillation, I50.9 - Heart failure, unspecified, R06.81 - Apnea, not elsewhere classified Coding Level of Care Code Est Pt Level 4 (70769) Diagnoses Persistent atrial fibrillation I48.19 Heart failure with reduced ejection fraction I50.20 CPT Codes EKG - CPT: 03185-Qoaptbphbermjglum, Complete ([id number])
== END 2024-02-28 10:47 | disposition home or self-care (01) ==
PROVIDERS: PCP Internal Medicine; Visit Provider Internal Medicine Cardiovascular Disease
DX: I48.19 Other persistent atrial fibrillation (principal); I50.20 Unspecified systolic (congestive) heart failure
CPT/HCPCS: 93010; 99214

== ENCOUNTER → 2024-02-28 09:55 | Outpatient (BNVA) | payer BC, SELFPAY | PROVIDERS: PCP Internal Medicine; Visit Provider Internal Medicine Cardiovascular Disease | DX: I48.19 Other persistent atrial fibrillation (principal); I50.20 Unspecified systolic (congestive) heart failure; Z79.01 Long term (current) use of anticoagulants; Z79.899 Other long term (current) drug therapy | CPT/HCPCS: 93005 ==

== ENCOUNTER 2024-03-06 12:34 | Day surgery (SDC) | payer BC, SELFPAY ==
--- NOTE | 2024-03-04 14:12 | P.CONAN_ITS ---
Documented by User: Cintia Seals NP 03/04/24 14:15 HPI - Anesthesia Eval Consult details Narrative: 63yo M for Cardioversion s/p same 01/2024 with MAC Eliquis Anesthesia Pre-Procedure Meds Is the patient on any of the following meds?: SGLT2 Inhib PMFSH Active Problems Active Problems: All Active Problems Heart failure with reduced ejection fraction (Acute) Persistent atrial fibrillation (Acute) Bilateral primary osteoarthritis of hip (Acute) Alcohol use disorder (Acute) Tobacco abuse (Acute) Left atrial thrombus (Acute) Atrial fibrillation (Acute) History of prostate cancer (Acute) Elevated PSA (Acute) Past Medical History Medical History CHF (congestive heart failure) Atrial fibrillation with rapid ventricular response Acute HFrEF (heart failure with reduced ejection fraction) Afib CHF (congestive heart failure) Hay fever Family History Family history of problems with anesthesia: No Surgical History Surgical History Hx of hand surgery History of cataract surgery History of Problems with Anesthesia: No Social History Social History Household Members: Spouse Household Members Other:: 2 Housing: House Do you presently have visiting nurse or other home services: No Alcohol intake: current Patient Tobacco Use Status: Former Tobacco user Tobacco use type: Cigarette Cigarette Packs Per Day: 0.5 Cigarettes Per Day: 10.0 Second Hand Smoke Exposure: No Substance Use Type: Marijuana Substance Use Frequency: Occasionally Are you DNR?: No Advance Directives: No Advance Directives Information Provided: Yes Nutrition Risks: No Nutritional Risk service: No 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 Myocardial perfusion imaging study shows no reversible ischemia with fixed apical defect 2. Gated LVEF is 34% 3. Transient ischemic dilatation not present but LV cavity is dilated EKG is nondiagnostic for ischemia Assessment and Plan Assessment Anesthesia Assessment: Chart Reviewed Final Anesthetic Review Family History of Problems with Anesthesia: No History of Problems with Anesthesia: No Documented by User: Florida Burnett MD 03/06/24 14:25 [facility] Past Medical History Medical History CHF (congestive heart failure) Atrial fibrillation with rapid ventricular response Acute HFrEF (heart failure with reduced ejection fraction) Afib CHF (congestive heart failure) Hay fever Surgical History Surgical History Hx of hand surgery History of cataract surgery Social History Social History Household Members: Spouse Household Members Other:: 2 Housing: House Do you presently have visiting nurse or other home services: No Alcohol intake: current Patient Tobacco Use Status: Former Tobacco user Tobacco use type: Cigarette Cigarette Packs Per Day: 0.5 Cigarettes Per Day: 10.0 Second Hand Smoke Exposure: No Substance Use Type: Marijuana Substance Use Frequency: Occasionally Are you DNR?: No Advance Directives: No Advance Directives Information Provided: Yes Nutrition Risks: No Nutritional Risk service: No 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 Allergies Allergy/AdvReac Type Severity Reaction Status Date / Time No Known Allergies Allergy Verified 03/06/24 12:54 Home Medications ?Medication ?Instructions ?Recorded ?Confirmed ?Last Taken ?Type cetirizine 10 mg chewable tablet 10 mg PO DAILY 09/06/23 03/06/24 12/31/23 History (Zyrtec) Exam Airway Mallampati Class: III TM Dist: >3cm Neck ROM: Full Loose/Missing/Broken Teeth: No Heart: RRR Lungs: CTA Assessment and Plan Assessment Anesthesia Assessment: Anesthesia Plan Discussed Final Anesthetic Review NPO: Yes ASA Class: III Final Preanesthetic Review: Meds/Allgs Chart Reviewed, Consent Obtained/Reviewed and Anes Risks/Benef Reviewed Patient Risk: Intermediate Procedure Risk: Low Anesthetic Plan Anesthetic Plan: MAC: Disposition: Standard PACU
[2024-03-06 12:52] VITALS: BMI 35.9
--- NOTE | 2024-03-06 12:57 | MHC.SHP ---
Pre-Procedural Eval Section A - 24 Hr Update-Section A only Date of Service: 03/06/24 The patient is an INPATIENT: No Changes since office visit: Yes Patient answered all questions; No Cold of Flu in the past 2 weeks, No New Medical Problems and No Changes in Medication The patient has been examined within 24 hours of the surgical procedure. The History & Physical has been completed within 30 days and I have reviewed it.: Yes Section B - Complete if H&P > 30 days Chief Complaint: Other persistent atrial fibrillation Allergies: Allergies Allergy/AdvReac Type Severity Reaction Status Date / Time No Known Allergies Allergy Verified 03/06/24 12:54 Plan I have reviewed the history and physical and performed a pertinent physical examination on my patient. No changes have occurred unless specified. Time Spent With Patient Time: Total time managing care of this patient today ____ minutes.
[2024-03-06] MEDS: Lactated Ringers 1,000 ML 50 ML IVCONT (13:05)
[2024-03-06 13:12] VITALS: BP 105/64; PULSE 81; RESP 18; TEMP 36.6; O2SAT 96
[2024-03-06 13:14] LABS: Glucose, Whole Blood 96 mg/dL (60-115)
--- NOTE | 2024-03-06 14:26 | PC.NURSE ---
report given to katherine johnson rn at this time. aware of one section to sign on preop record.
--- NOTE | 2024-03-06 15:04 | ECG_ITS ---
Test Reason : s/p cardioversion Blood Pressure : / mmHG Vent. Rate : 061 BPM Atrial Rate : 061 BPM P-R Int : 192 ms QRS Dur : 144 ms QT Int : 480 ms P-R-T Axes : 037 -67 -10 degrees QTc Int : 483 ms Normal sinus rhythm Possible Left atrial enlargement Left axis deviation Right bundle branch block Inferior infarct (cited on or before 01-JAN-2024) T wave abnormality, consider lateral ischemia Abnormal ECG When compared with ECG of 07-FEB-2024 14:20, T wave inversion now evident in Lateral leads Referred By: Malcolm Krishnamurthy Electronically Signed By:MALCOLM KRISHNAMURTHY MD
--- NOTE | 2024-03-06 15:04 | HO.CARDIVERS ---
Cardioversion Procedure Note Cardioversion Date of Procedure: 03/06/2024 Ordering Provider: mari Krishnamurthy Performing Provider: Mari Krishnamurthy Indication for Procedure: Persistent atrial fibrillation with cardiomyopathy Pre-Op Diagnosis: Same Post-Op Diagnosis: Normal sinus rhythm Performed with Transesophageal Echo: No History: See my office note Consent: Verbal and Written consent was obtained from the patient before starting after confirming oral anticoagulation use. The patient was made aware of the risk of synchronized cardioversion including benefits and alternatives Procedure: After consent obtained, cardioversion pads were attached in anteroposterior configuration and the patient was sedated by the anesthesia team. Once adequate sedation achieved, patient was delivered 200 joules of biphasic synchronized energy in anteroposterior configuration x2 Complications: None Impression: Converted to sinus rhythm Recommendations: 1. 12 lead EKG 2. Continue amiodarone and oral anticoagulation therapy 3. Follow up in the clinic after Holter monitor
[2024-03-06 15:05] VITALS: BP 127/79; PULSE 64; RESP 11; TEMP 36.1; O2SAT 93
[2024-03-06 15:10] VITALS: BP 111/68; PULSE 62; RESP 12; O2SAT 94
[2024-03-06 15:15] VITALS: BP 103/69; PULSE 60; RESP 14; O2SAT 95
[2024-03-06 15:20] VITALS: BP 102/68; PULSE 65; RESP 14; O2SAT 95
[2024-03-06 15:42] VITALS: BP 108/65; PULSE 62; RESP 16; TEMP 36.1; O2SAT 95
== END 2024-03-06 16:02 | disposition home or self-care (01) ==
PROVIDERS: PCP Internal Medicine; Visit Provider Internal Medicine Cardiovascular Disease
PROC: 5A2204Z Restoration of Cardiac Rhythm, Single (ICD-10-PCS; principal; 2024-03-06 14:30)
DX: I48.19 Other persistent atrial fibrillation (principal); I47.9 Paroxysmal tachycardia, unspecified; I50.20 Unspecified systolic (congestive) heart failure; J30.1 Allergic rhinitis due to pollen; Z79.51 Long term (current) use of inhaled steroids; Z79.01 Long term (current) use of anticoagulants; Z79.899 Other long term (current) drug therapy; Z87.891 Personal history of nicotine dependence; Z98.890 Other specified postprocedural states
CPT/HCPCS: 82947; 92960; 93005; J2704

== ENCOUNTER → 2024-03-06 12:34 | Outpatient (BNV) | payer BC, SELFPAY | PROVIDERS: PCP Internal Medicine; Visit Provider Internal Medicine Cardiovascular Disease | DX: I48.91 Unspecified atrial fibrillation (principal) | CPT/HCPCS: 92960; 93010 ==

== ENCOUNTER → 2024-03-21 10:18 | Outpatient (BNVA) | payer BC, SELFPAY | PROVIDERS: PCP Internal Medicine; Visit Provider Internal Medicine Cardiovascular Disease ==

== ENCOUNTER 2024-04-08 15:18 | Outpatient (AMB) | payer BC, SELFPAY ==
--- NOTE | 2024-04-08 15:18 | A.OFFVIS_ITS ---
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 Recent cardioversion on March 06, had recurrent atrial fibrillation on the follow-up visit with you. His amiodarone was therefore discontinue his metoprolol increased. Comes for follow-up. He said he does not feel his atrial fibrillation, does not feel any rapid heart rate or irregular heartbeat. No worsening heart failure symptoms. Denies any orthopnea, PND, leg edema. Taking all his medications. No lightheadedness, syncope. No bleeding issues or neurologic events. No exertional chest pain. Has not had his sleep study. [facility] Medical History (Updated 04/08/24 @ 15:51 by Malcolm Krishnamurthy MD) Left atrial thrombus CHF (congestive heart failure) Atrial fibrillation with rapid ventricular response Acute HFrEF (heart failure with reduced ejection fraction) Afib CHF (congestive heart failure) Hay fever Surgical History Hx of hand surgery History of cataract surgery Social History Household Members: Spouse Household Members Other:: 2 Housing: House Do you presently have visiting nurse or other home services: No Alcohol intake: current Patient Tobacco Use Status: Former Tobacco user Tobacco use type: Cigarette Cigarette Packs Per Day: 0.5 Cigarettes Per Day: 10.0 Second Hand Smoke Exposure: No Substance Use Type: Marijuana service: No 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 of Systems Const Denies chills, Denies fatigue, Denies fever(s), Denies frequent falls, Denies weakness, Denies weight gain and Denies weight loss ENT Denies dizziness Card Denies chest pain, Denies leg edema, Denies lightheadedness, Denies palpitations, Denies dyspnea, Denies dyspnea on exertion, Denies orthopnea and Denies other (loss of consciousness) Resp Denies cough, Denies dyspnea and Denies dyspnea on exertion GI Denies hematochezia and Denies change in stool character Musc Denies abnormal gait, Denies muscle weakness, Denies numbness, Denies radiating pain into limb and Denies tingling Neuro Denies abnormal gait, Denies dizziness, Denies frequent falls, Denies numbness, Denies tingling and Denies weakness Endo Denies fatigue and Denies palpitations Physical Exam Vital Signs: Last Vital Signs Pulse 82 04/08/24 15:19 BP 120/80 04/08/24 15:19 BMI result Body Mass Index 35.4 Const General: cooperative, comfortable, no acute distress, alert and awake Nutritional Appearance: obese Orientation/consciousness: patient oriented x3 Neck Neck: Yes trachea midline, Yes supple and Yes no JVD Resp Effort & Inspection: normal respiratory effort Auscultation: clear to auscultation bilaterally Cardio Jugular venous distension: no JVD Palpation: abnormal PMI displaced PMI Rhythm: abnormal rhythm irregularly irregular Heart sounds: S1 normal heart sound present, S2 normal heart sound present, no click, no gallops, no murmurs and no rubs GI Auscultation: normal bowel sounds Skin General skin exam: no rashes or lesions noted Neuro General: patient oriented x3 and no focal motor deficits Extrem General: Yes no clubbing, cyanosis or edema Office Procedures EKG Details: EKG shows atrial fibrillation with bifascicular block with right bundle and left anterior fascicular block with diffuse ST T wave changes suggestive of repolarization abnormality [id number], Complete Assessment & Plan Assessment & Plan (1) Heart failure with reduced ejection fraction: Code(s): I50.20 - Unspecified systolic (congestive) heart failure Category: Medical Plan: Heart failure with reduced ejection fraction without any signs or symptoms of heart failure. Clinically appears to be euvolemic and well compensated. Continue current diuretic dose. Continue metoprolol therapy as well as Jardiance therapy for neurohormonal hormonal modulation. Given his improved blood pressure will add Entresto to his regimen. Follow-up blood pressure check and BNP in 2 weeks time. Will continue to uptitrate medications as tolerated. Follow-up limited echocardiogram in 6 weeks time and if he has persistent moderate to severe LV systolic dysfunction with EF less than 35% will refer him for ICD placement. Home sleep study to be pursued. Will refer him for AFib management, see below. Has NYHA class 2 symptoms and may benefit from cardiac rehab therapy after he is finished with his physical therapy. (2) Persistent atrial fibrillation: Code(s): I48.19 - Other persistent atrial fibrillation Category: Medical Plan: Persistent rate control atrial fibrillation. Has failed rhythm control approach despite amiodarone therapy and repeat cardioversion. Will refer him to EPS after long discussion for possible consideration of ablation given his age. Although likelihood of success for maintenance rhythm in the oil heaterman including with ablation is low given his failure to respond to pharmacologic therapy. Continue full oral anticoagulation Eliquis. Continue current rate control with metoprolol. Home sleep study as above. Will follow up in the clinic in 2 months time, sooner p.r.n.. Thank you for allowing me to partake in his care Orders: Orders Basic Metabolic Panel 2 Weeks I50.20 - Unspecified systolic (congestive) heart failure CA Echo Limited 6 Weeks I42.9 - Cardiomyopathy, unspecified, I50.20 - Unspecified systolic (congestive) heart failure Referrals Cardiac Electrophysiology Referral I48.19 - Other persistent atrial fibrillation Medications: New sacubitril-valsartan 24-26 mg (Entresto) 1 tab PO BID 60 tabs 2RF I50.20 - Unspecified systolic (congestive) heart failure Coding Level of Care Code Est Pt Level 4 (88842) Diagnoses Heart failure with reduced ejection fraction I50.20 Persistent atrial fibrillation I48.19 CPT Codes EKG - CPT: 44612-[id number], Complete ([id number])
[2024-04-08 15:19] VITALS: BP 120/80; PULSE 82; BMI 35.4
== END 2024-04-08 15:50 | disposition home or self-care (01) ==
PROVIDERS: PCP Internal Medicine; Visit Provider Internal Medicine Cardiovascular Disease
DX: I50.20 Unspecified systolic (congestive) heart failure (principal); I48.19 Other persistent atrial fibrillation
CPT/HCPCS: 93010; 99214

== ENCOUNTER → 2024-04-08 15:18 | Outpatient (BNVA) | payer BC, SELFPAY | PROVIDERS: PCP Internal Medicine; Visit Provider Internal Medicine Cardiovascular Disease | DX: I48.19 Other persistent atrial fibrillation (principal); I50.20 Unspecified systolic (congestive) heart failure; Z79.01 Long term (current) use of anticoagulants; Z79.899 Other long term (current) drug therapy | CPT/HCPCS: 93005 ==

== ENCOUNTER → 2024-04-22 15:51 | Outpatient (BNVA) | payer BC, SELFPAY | PROVIDERS: PCP Internal Medicine; Visit Provider Internal Medicine Cardiovascular Disease ==

== ENCOUNTER 2024-04-29 13:00 | Outpatient (RCR) | payer BC, SELFPAY ==
--- NOTE | 2024-04-18 09:45 | MHC.PT.EP ---
[facility] [place] Office [place] Office [place] Office [address] Isai Emery [address] [phone] F: [phone] F: [phone] F: [phone] F: [phone] Physical Therapy Plan of Care Date of Evaluation: 04/18/24 Date of Surgery: n/a Diagnosis: B primary OA of hips Assessment: Patient is a 63 year old male presenting to PT with complaints of pain in his B hips. Pt reports onset of pain began about 9 months ago due to insidious onset. He presents today with impairments in pain, hip strength, ROM. 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 Clinical presentation today is most consistent with signs and sx associated with B hip OA and pt will benefit from skilled PT 2 week x 4 weeks to address the following problems and impairments noted upon evaluation: pain, hip strength, ROM. These problems limit the patient with the following functional activities: ambulating, work, ADLs. The prescribed treatment plan of care is medically necessary. Co-morbidities of afib, CHF, on eliquis were identified and taken into considerations of plan of care. Pt was educated on HEP, role of PT, prognosis, POC. Frequency and Duration: The patient will be seen 2 x week x 4 weeks Short Term Goals: Pt will demonstrate improved hip MMT strength by 1/3 grade in 2 weeks for improved lumbopelvic stability. Pt will demonstrate improved hs length as evidence by decreased tightness with knee ext MMT in 2 weeks. Intermediate Goals: Pt will demonstrate Improved LEFI score by 9 points in 4 weeks for improved functional mobility. Pt will demonstrate ability to walk for prolonged periods with min to no pain for improved tolerance to work in 4 weeks. Pt will demonstrate ability to complete ADLs with min to no pain in 4 weeks for return to PLOF. Treatment Plan: Modalities to reduce pain, spasms and effusion. Manual therapy to restore motion and function. Therapeutic exercise to improve strength and flexibility. Neuromuscular re-education for posture and balance. Therapeutic activities to return to functional activities of daily living. Electronically signed by: Catia Pabon, PT, DPT, ATC Please sign and return to therapist. Thank you for your referral.
--- NOTE | 2024-05-06 13:16 | MHC.PT.DC ---
[facility] [place] Office [place] Office [place] Office [address] [phone] F: [phone] F: [phone] F: [phone] F: [phone] Physical Therapy Discharge Report Diagnosis: B primary OA of hips Date of Surgery: n/a Date of Evaluation: 04/18/24 Date of Discharge: 05/06/24 Treatments to Date: 2 Cancellations to Date: 0 No Shows to Date: 2 Discharge Status: Visit Non-compliance Discharge Summary: Pt has failed to comply with [facility] attendance policy and no showed 2 appointments since eval. Therefore he is to be d/c per policy. Electronically signed by: Catia Pabon, PT, DPT, ATC Please sign and return to therapist. Thank you for your referral.
== END 2024-05-06 13:16 | disposition home or self-care (01) ==
LOC: HO.PTCHIC 13:00
PROVIDERS: PCP Internal Medicine; Visit Provider Physician Assistant
DX: M16.0 Bilateral primary osteoarthritis of hip (principal)
CPT/HCPCS: 97110; 97161

== ENCOUNTER → 2024-04-30 11:01 | Outpatient (REF) | payer BC, SELFPAY ==
--- NOTE | 2024-04-30 11:16 | HM_ITS ---
Conclusion: 1. Patient was monitored for total period of 6 days 2. Baseline was atrial fibrillation with average heart of 111 beats per minute with adequate rate control 3. Frequent PVCs noted with total burden of 1.4% could represent aberrant beats 4. No patient reported events MTDD
== END ==
LOC: HO.CARD 11:01
PROVIDERS: PCP Internal Medicine; Visit Provider Internal Medicine Cardiovascular Disease
DX: I48.19 Other persistent atrial fibrillation (principal); I50.9 Heart failure, unspecified; R06.81 Apnea, not elsewhere classified
CPT/HCPCS: 93242; 95806

== ENCOUNTER → 2024-04-30 11:16 | Outpatient (BNV) | payer BC, SELFPAY | PROVIDERS: PCP Internal Medicine; Visit Provider Internal Medicine Cardiovascular Disease | DX: I48.91 Unspecified atrial fibrillation (principal) | CPT/HCPCS: 93244 ==

== ENCOUNTER → 2024-05-15 11:01 | Outpatient (REF) | payer BC, SELFPAY ==
--- NOTE | 2024-05-15 11:04 | CA_ITS ---
Transthoracic Echocardiogram Patient (Last, First, Middle): Lennox Marrero R Gender: Male Date of : 1960 Age: 64 Procedure Date: 05/15/2024 Procedure Type: Transthoracic Echocardiogram Location: OP Height: 177.8 cm Weight: 111.59 kg BSA: 2.28 m2 Heart Rate: bpm BP: 110 / 70 mmHg [employer]: DANIEL Referring MD: Malcolm Krishnamurthy MD Symptoms: I42.9 - Cardiomyopathy, unspecified Study Quality: Fair, contrast ECG Rhythm: Sinus Conclusions: - The left ventricular systolic function is severely decreased. The visually estimated ejection fraction is between 25-30%. Findings Procedure Information Contrast agent, definity, is being given per protocol without apparent complications. Left Ventricle Normal left ventricular cavity size. There is mildly increased left ventricular wall thickness. The left ventricular systolic function is severely decreased. The visually estimated ejection fraction is between 25 30%. There is severe global hypokinesis. Venous The inferior vena cava is normal in size and collapses greater than 50% with inspiration. Prior Study Comparison No significant change compared to prior study dated: 02/07/2024. Measurements 2D Linear Measurements IVSd: 1.26 0.6-0.9/0.6-1.0 cm LVIDd: 5.67 3.9-5.3/4.2-5.9 cm LVIDd Index: 2.49 2.4-3.2/2.2-3.1 cm/m2 LVIDs: 3.90 2.0-3.6 cm LVPWd: 1.14 0.7-1.1 cm LV Mass: 357.00 67-162/88-224 g LV Mass Index: 156.58 43-95/49-115 g/m2 LVOT Diam: 2.60 3.0+(-)1.3 cm 2D Systolic Function EF 4C: 32.90 >55% EF 2C: 34.30 >55% EF BiP: 33.30 >55% LVOT LVOT Pk Masood: 0.79 LVOT Mn Masood: 0.54 LVOT VTI: 0.15 LVOT Pk Grad: 3.00 LVOT Mn Grad: 1.00 LVOT Diam: 2.60 LVOT Area: 5.31 Tricuspid Valve RA Press: 3.00 Updated in Other Vendor System with Status of Final Asif Diallo MD electronically signed on 05/17/2024 9:17:38 AM with status of Final
== END ==
LOC: HO.CARD 11:01
PROVIDERS: PCP Internal Medicine; Visit Provider Internal Medicine Cardiovascular Disease
DX: I42.9 Cardiomyopathy, unspecified (principal); I50.20 Unspecified systolic (congestive) heart failure
CPT/HCPCS: 93308; Q9957

== ENCOUNTER → 2024-05-15 11:04 | Outpatient (BNV) | payer BC, SELFPAY | PROVIDERS: PCP Internal Medicine; Visit Provider Internal Medicine | DX: I42.8 Other cardiomyopathies (principal); I51.89 Other ill-defined heart diseases | CPT/HCPCS: 93308 ==

== ENCOUNTER 2024-06-18 15:12 | Outpatient (AMB) | payer BC, SELFPAY ==
--- NOTE | 2024-06-18 15:15 | A.OFFVIS_ITS ---
Vital Signs 06/18/24 15:16 Height 5 ft 10 in Weight 249 lb 1.957 oz BMI 35.7 BP 124/78 Blood Pressure Location Lt brachial Position Sitting Pulse 99 Intake Visit Reasons: 2 mth fu Intake Note: 2 month follow-up c/o sob and fatigue Eyelet Maker Required: No Allergies No Known Allergies Allergy (Verified 06/19/24 13:48) Medication List - Last Reconciled 06/18/24 by Malcolm Krishnamurthy MD apixaban (Eliquis) 5 mg PO BID 90 days cetirizine (Zyrtec) 10 mg PO DAILY empagliflozin 10 mg PO DAILY folic acid 1 mg PO DAILY furosemide 40 mg PO BID metoprolol tartrate 50 mg (2 x 25 mg) PO BID sacubitril-valsartan 24-26 mg (Entresto) 1 tab PO BID HPI Comments Details: Lennox comes for follow-up. Continues to have exertional shortness of breath NYHA class 2. Does not use alcohol. He is scheduled to undergo CPAP titration trial tomorrow. Denies any heart failure symptoms of orthopnea, PND, leg edema, worsening weight gain. Takes all his medications. Most recent LV ejection fraction still shows significantly reduced LV ejection fraction. Occasional lightheadedness but no syncopal episodes. No bleeding issues or neurologic events. Heart rate still remains borderline controlled. [facility] Medical History (Updated 06/19/24 @ 14:16 by Jam Jacome MD) Left atrial thrombus CHF (congestive heart failure) Atrial fibrillation with rapid ventricular response Acute HFrEF (heart failure with reduced ejection fraction) Afib CHF (congestive heart failure) Hay fever Surgical History Hx of hand surgery History of cataract surgery Social History Household Members: Spouse Household Members Other:: 2 Housing: House Do you presently have visiting nurse or other home services: No Alcohol intake: current Patient Tobacco Use Status: Former Tobacco user Tobacco use type: Cigarette Cigarette Packs Per Day: 0.5 Cigarettes Per Day: 10.0 Second Hand Smoke Exposure: No Substance Use Type: Marijuana service: No 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 of Systems Const Denies chills, Denies fatigue, Denies fever(s), Denies frequent falls, Denies weakness, Denies weight gain and Denies weight loss ENT Denies dizziness Card Denies chest pain, Denies leg edema, Denies lightheadedness, Denies palpitatio ns, Reports dyspnea, Denies dyspnea on exertion, Denies orthopnea and Denies other (loss of consciousness) Resp Denies cough, Reports dyspnea and Denies dyspnea on exertion GI Denies hematochezia and Denies change in stool character Musc Denies abnormal gait, Denies muscle weakness, Denies numbness, Denies radiating pain into limb and Denies tingling Neuro Denies abnormal gait, Denies dizziness, Denies frequent falls, Denies numbness, Denies tingling and Denies weakness Endo Denies fatigue and Denies palpitations Physical Exam Vital Signs: Last Vital Signs Pulse 99 06/18/24 15:16 BP 124/78 06/18/24 15:16 BMI result Body Mass Index 35.7 Const General: cooperative, comfortable, no acute distress, alert and awake Nutritional Appearance: obese Orientation/consciousness: patient oriented x3 Neck Neck: Yes trachea midline, Yes supple and Yes no JVD Resp Effort & Inspection: normal respiratory effort Auscultation: clear to auscultation bilaterally Cardio Jugular venous distension: no JVD Palpation: abnormal PMI displaced PMI Rate: tachycardic Rhythm: abnormal rhythm irregularly irregular Heart sounds: S1 normal heart sound present, S2 normal heart sound present, no click, no gallops, no murmurs and no rubs GI Auscultation: normal bowel sounds Skin General skin exam: no rashes or lesions noted Neuro General: patient oriented x3 and no focal motor deficits Extrem General: Yes no clubbing, cyanosis or edema Office Procedures EKG Details: EKG shows atrial fibrillation with rapid ventricular response with right bundle- branch block and left anterior fascicular block 67756-[id number], Complete Assessment & Plan Assessment & Plan (1) Heart failure with reduced ejection fraction: Code(s): I50.20 - Unspecified systolic (congestive) heart failure Category: Medical Plan: Heart failure with reduced ejection fraction with persistent severe LV systolic dysfunction probably related to atrial fibrillation with borderline rate control as well as possibly untreated sleep apnea. Clinically appears to be euvolemic and well compensated. We discussed heart failure management. Continue current furosemide dose. Daily weight monitoring avoidance of salt loading was discussed additional diuretics as need be. Continue current neurohormonal modulation with Jardiance, metoprolol which will be uptitrate as well as Entresto which will be uptitrated. This was discussed with him. Advised to call me with any new symptoms. I think he should [place] sleep apnea therapy. Once sleep apnea therapy he has been instituted would re-attempt pursuing synchronized cardioversion with him with antiarrhythmic drug therapy. If persists with severe LV systolic dysfunction despite rhythm control and rate control, will consider ICD therapy. Will re-evaluate LVEF in 3 months (2) Persistent atrial fibrillation: Code(s): I48.19 - Other persistent atrial fibrillation Category: Medical Plan: Persistent atrial fibrillation not adequate rate control. Increase metoprolol to 100 mg b.i.d.. I think he will benefit from rhythm control approach. Encouraged to participate in weight loss program and consider sleep apnea therapy aggressively. On sleep apnea therapy has been in stated, will follow-up in 4 weeks time. Continue full oral anticoagulation with Eliquis. Will follow with you Orders: Orders [facility] 3 Months I42.9 - Cardiomyopathy, unspecified, I50.20 - Unspecified systolic (congestive) heart failure Referrals Cardiac Electrophysiology Referral I48.19 - Other persistent atrial fibrillation Medications: New metoprolol tartrate 100 mg PO BID 60 tabs 5RF sacubitril-valsartan 49-51 mg (Entresto) 1 tab PO BID 60 tabs 5RF Discontinued sacubitril-valsartan 24-26 mg (Entresto) Discontinued Reason: Doctor's Order 1 tab PO BID 60 tabs 2RF I50.20 - Unspecified systolic (congestive) heart failure metoprolol tartrate Discontinued Reason: Doctor's Order 50 mg (2 x 25 mg) PO BID 60 tabs 6RF Coding Level of Care Code Est Pt Level 4 (87380) Complex EM visit Add On G2211 Diagnoses Heart failure with reduced ejection fraction I50.20 Persistent atrial fibrillation I48.19 CPT Codes EKG - CPT: 90279-[id number], Complete ([id number])
[2024-06-18 15:16] VITALS: BP 124/78; PULSE 99; BMI 35.7
== END 2024-06-18 15:44 | disposition home or self-care (01) ==
PROVIDERS: PCP Internal Medicine; Visit Provider Internal Medicine Cardiovascular Disease
DX: I50.20 Unspecified systolic (congestive) heart failure (principal); I48.19 Other persistent atrial fibrillation
CPT/HCPCS: 93010; 99214

== ENCOUNTER → 2024-06-18 15:12 | Outpatient (BNVA) | payer BC, SELFPAY | PROVIDERS: PCP Internal Medicine; Visit Provider Internal Medicine Cardiovascular Disease | DX: I50.20 Unspecified systolic (congestive) heart failure (principal); I48.19 Other persistent atrial fibrillation; Z79.01 Long term (current) use of anticoagulants | CPT/HCPCS: 93005 ==

== ENCOUNTER 2024-06-19 13:41 | Outpatient (AMB) | payer BC, SELFPAY ==
[2024-06-19 13:43] VITALS: BP 115/62; PULSE 108; O2SAT 97; BMI 36.3
--- NOTE | 2024-06-19 13:43 | MHC.OFFVIS ---
Vital Signs 06/19/24 13:43 Height 5 ft 10 in Weight 253 lb BMI 36.3 BP 115/62 Blood Pressure Location Rt brachial Position Sitting Pulse 108 H Pulse Source Doppler Pulse Oximetry (%) 97 Oxygen Delivery Method Room Air Intake Visit Reasons: sleep apnea Allergies No Known Allergies Allergy (Verified 06/19/24 13:48) HPI HPI sleep apnea: Details: 64-year-old gentleman, recent 30+ pack-year smoker, with underlying AFib and new diagnosis of severe obstructive sleep apnea referred for pulmonary evaluation. Patient is interested in CPAP therapy. His sleep study showed AHI 56. [facility] Medical History (Updated 06/19/24 @ 14:16 by Jam Jacome MD) Left atrial thrombus CHF (congestive heart failure) Atrial fibrillation with rapid ventricular response Acute HFrEF (heart failure with reduced ejection fraction) Afib CHF (congestive heart failure) Hay fever Surgical History Hx of hand surgery History of cataract surgery Social History Household Members: Spouse Household Members Other:: 2 Housing: House Do you presently have visiting nurse or other home services: No Alcohol intake: current Patient Tobacco Use Status: Former Tobacco user Tobacco use type: Cigarette Cigarette Packs Per Day: 0.5 Cigarettes Per Day: 10.0 Second Hand Smoke Exposure: No Substance Use Type: Marijuana service: No 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 of Systems Const Denies daytime sleepiness, Denies excessive sweating, Denies fatigue, Denies fever(s), Denies lethargy, Denies malaise, Denies night sweats, Denies snoring and Denies weight loss Eyes Denies blurry vision and Denies itchy eyes ENT Denies nasal congestion, Denies post nasal drip, Denies sinus pain, Denies sinus pressure and Denies other ( Thrush) Card Denies chest pain, Denies pedal edema, Denies dyspnea, Denies orthopnea and Denies paroxysmal nocturnal dyspnea Resp Denies cough, Denies hemoptysis, Denies excessive phlegm production, Denies dyspnea, Denies snoring and Denies wheezing GI Denies abdominal pain and Denies heartburn Musc Denies myalgias, Denies arthralgias and Denies joint swelling Skin/Breast Denies rash Neuro Denies memory loss and Denies seizure-like activity Psych Denies abnormal sleep pattern, Denies anxiety and Denies memory loss Endo Denies excessive sweating, Denies fatigue and Denies heat intolerance Hernando/Lymph Denies easy bruising Aller/Immun Denies itchy eyes, Denies seasonal rhinorrhea and Denies wheezing Physical Exam Vital Signs: Last Vital Signs Pulse 108 H 06/19/24 13:43 BP 115/62 06/19/24 13:43 Pulse Ox 97 06/19/24 13:43 Oxygen Delivery Method Room Air 06/19/24 13:43 BMI result Body Mass Index 36.3 Const General: no acute distress and alert Nutritional Appearance: obese Orientation/consciousness: Other orientation findings ( oriented) HEENT Head: Yes atraumatic Eyes General: appearance normal, both eyes and all related structures Sclerae: sclerae normal EOM: EOMs intact bilaterally Neck Neck: Yes supple Lymphatic: no lymphadenopathy noted Resp Effort & Inspection: normal respiratory effort and no use of accessory muscles Auscultation: clear to auscultation bilaterally Cardio Rate: regular rate Rhythm: regular rhythm Heart sounds: no gallops, no murmurs and no rubs Skin General skin exam: other ( warm) Extrem General: No clubbing, No cyanosis and No edema Assessment & Plan Assessment & Plan (1) Severe sleep apnea: Code(s): G47.30 - Sleep apnea, unspecified Category: Medical Plan: Results of sleep study reviewed, underlying severe obstructive sleep apnea with AHI of 56. Will start on CPAP of 6-16 cm of water. (2) Emphysema lung: Code(s): J43.9 - Emphysema, unspecified Category: Medical Plan: Will obtain pulmonary function test for further evaluation. Coding Level of Care Code New Pt Level 4 (45212) Diagnoses Severe sleep apnea G47.30 Emphysema lung J43.9
== END 2024-06-19 14:12 | disposition home or self-care (01) ==
PROVIDERS: PCP Internal Medicine; Visit Provider Internal Medicine Pulmonary Disease
DX: G47.30 Sleep apnea, unspecified (principal); J43.9 Emphysema, unspecified
CPT/HCPCS: 99204

== ENCOUNTER 2024-07-02 15:57 | Outpatient (REF) | payer BC, SELFPAY | END 2024-07-02 15:58 | disposition home or self-care (01) | LOC: HO.SH 15:57 | PROVIDERS: Visit Provider Internal Medicine | DX: Z01.118 Encounter for examination of ears and hearing with other abnormal findings (principal); H90.3 Sensorineural hearing loss, bilateral | CPT/HCPCS: 92557; 92567 ==

== ENCOUNTER → 2024-08-21 13:53 | Outpatient (REF) | payer BC, SELFPAY ==
--- NOTE | 2024-08-21 13:57 | CA_ITS ---
Transthoracic Echocardiogram Patient (Last, First, Middle): Lennox Marrero R Gender: Male Date of : 1960 Age: 64 Procedure Date: 08/21/2024 Procedure Type: Transthoracic Echocardiogram Location: OP Height: 177.8 cm Weight: 113.4 kg BSA: 2.29 m2 Heart Rate: bpm BP: 110 / 70 mmHg Rn Forensic: DANIEL Referring MD: Malcolm Krishnamurthy MD Molecular Geneticist: Malcolm Krishnamurthy MD Symptoms: I42.9 - Cardiomyopathy, unspecified Study Quality: Fair, contrast ECG Rhythm: Atrial Fibrillation Conclusions: - Technically difficult study although LV ejection fraction appears to be 30-35% with mild LVH Findings Procedure Information Contrast agent, definity, is being given per protocol without apparent complications. Left Ventricle Normal left ventricular cavity size. There is mildly increased left ventricular wall thickness. The left ventricular systolic function is moderate to severely decreased. The visually estimated ejection fraction is between 30-35%. Diastolic function is indeterminate on the basis of available data. Prior Study Comparison Changes noted compared to prior study dated: 05/15/2024. LV systolic function may be marginally improved Measurements 2D Linear Measurements IVSd: 1.23 0.6-0.9/0.6-1.0 cm LVIDd: 4.95 3.9-5.3/4.2-5.9 cm LVIDd Index: 2.16 2.4-3.2/2.2-3.1 cm/m2 LVIDs: 3.86 2.0-3.6 cm LVPWd: 1.31 0.7-1.1 cm LV Mass: 310.86 67-162/88-224 g LV Mass Index: 135.75 43-95/49-115 g/m2 LVOT Diam: 2.40 3.0+(-)1.3 cm LVOT LVOT Pk Masood: 0.68 LVOT Mn Masood: 0.47 LVOT VTI: 0.13 LVOT Pk Grad: 2.00 LVOT Mn Grad: 1.00 LVOT Diam: 2.40 LVOT Area: 4.52 Tricuspid Valve RA Press: 3.00 Updated in Other Vendor System with Status of Final Malcolm Krishnamurthy MD electronically signed on 08/22/2024 1:01:52 PM with status of Final
== END ==
LOC: HO.CARD 13:53
PROVIDERS: PCP Internal Medicine; Visit Provider Internal Medicine Cardiovascular Disease
DX: I48.19 Other persistent atrial fibrillation (principal); I42.9 Cardiomyopathy, unspecified; I50.20 Unspecified systolic (congestive) heart failure
CPT/HCPCS: 93242; 93308; Q9957

== ENCOUNTER → 2024-08-21 13:57 | Outpatient (BNV) | payer BC, SELFPAY | PROVIDERS: PCP Internal Medicine; Visit Provider Internal Medicine Cardiovascular Disease | DX: I42.8 Other cardiomyopathies (principal) | CPT/HCPCS: 93308 ==

== ENCOUNTER 2024-09-11 15:04 | Outpatient (REF) | payer BC, SELFPAY ==
--- NOTE | 2024-09-11 15:08 | PFT_ITS ---
Indication: Emphysema Spirometry [FEV1 to FVC 74%; FEV1 3.39 L; FVC 4.57 L. No significant response to bronchodilators noted.] Lung Volumes [Total lung capacity 90% predicted] Diffusion Capacity [DLCO 84% predicted] Comparisons [none] Interpretation [No definitive obstructive nor restrictive ventilatory defects identified. No significant response to bronchodilators noted. Lung volumes are within normal limits. Diffusing capacity is low normal. Clinical correlation warranted.] MTDD
== END 2024-09-11 15:05 | disposition home or self-care (01) ==
LOC: HO.RESP 15:04
PROVIDERS: PCP Internal Medicine; Visit Provider Internal Medicine Pulmonary Disease
DX: J43.9 Emphysema, unspecified (principal)
CPT/HCPCS: 94010; 94640; 94727; 94729

== ENCOUNTER → 2024-09-11 15:08 | Outpatient (BNV) | payer BC, SELFPAY | PROVIDERS: PCP Internal Medicine; Visit Provider Hospitalist | DX: J43.9 Emphysema, unspecified (principal) | CPT/HCPCS: 94060; 94727; 94729 ==

== ENCOUNTER 2024-09-18 14:32 | Outpatient (AMB) | payer BC, SELFPAY ==
[2024-09-18 14:36] VITALS: BP 122/67; PULSE 78; O2SAT 96; BMI 37.8
--- NOTE | 2024-09-18 14:36 | A.OFFVIS_ITS ---
Vital Signs 09/18/24 14:36 Height 5 ft 10 in Weight 263 lb 7.238 oz BMI 37.8 BP 122/67 Blood Pressure Location Rt brachial Position Sitting Pulse 78 Pulse Source Doppler Pulse Oximetry (%) 96 Oxygen Delivery Method Room Air Intake Visit Reasons: Sleep Apnea/PFT Follow Up Allergies No Known Allergies Allergy (Verified 06/19/24 13:48) HPI HPI Sleep Apnea/PFT Follow Up: Details: 64-year-old gentleman, recent 30+ pack-year smoker, with underlying AFib and new diagnosis of severe obstructive sleep apnea with AHI of 56 referred for pulmonary evaluation. After the last office visit patient was started on CPAP therapy with significant improvement in his AHI, now down to 8. He also had pulmonary function tests that showed essentially normal pulmonary function. [facility] Medical History (Updated 06/19/24 @ 14:16 by Jam Jacome MD) Left atrial thrombus CHF (congestive heart failure) Atrial fibrillation with rapid ventricular response Acute HFrEF (heart failure with reduced ejection fraction) Afib CHF (congestive heart failure) Hay fever Surgical History Hx of hand surgery History of cataract surgery Social History Household Members: Spouse Household Members Other:: 2 Housing: House Do you presently have visiting nurse or other home services: No Alcohol intake: current Patient Tobacco Use Status: Former Tobacco user Tobacco use type: Cigarette Cigarette Packs Per Day: 0.5 Cigarettes Per Day: 10.0 Second Hand Smoke Exposure: No Substance Use Type: Marijuana service: No 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 of Systems Const Denies daytime sleepiness, Denies excessive sweating, Denies fatigue, Denies fe diandra(s), Denies lethargy, Denies malaise, Denies night sweats, Denies snoring and Denies weight loss Eyes Denies blurry vision and Denies itchy eyes ENT Denies nasal congestion, Denies post nasal drip, Denies sinus pain, Denies sinus pressure and Denies other ( Thrush) Card Denies chest pain, Reports pedal edema, Denies dyspnea, Reports dyspnea on exertion, Reports orthopnea and Denies paroxysmal nocturnal dyspnea Resp Denies cough, Denies hemoptysis, Denies excessive phlegm production, Denies d yspnea, Reports dyspnea on exertion, Denies snoring and Denies wheezing GI Denies abdominal pain and Denies heartburn Musc Denies myalgias, Denies arthralgias and Denies joint swelling Skin/Breast Denies rash Neuro Denies memory loss and Denies seizure-like activity Psych Denies abnormal sleep pattern, Denies anxiety and Denies memory loss Endo Denies excessive sweating, Denies fatigue and Denies heat intolerance Hernando/Lymph Denies easy bruising Aller/Immun Denies itchy eyes, Denies seasonal rhinorrhea and Denies wheezing Physical Exam Vital Signs: Last Vital Signs Pulse 78 09/18/24 14:36 BP 122/67 09/18/24 14:36 Pulse Ox 96 09/18/24 14:36 Oxygen Delivery Method Room Air 09/18/24 14:36 BMI result Body Mass Index 37.8 Const General: no acute distress and alert Nutritional Appearance: not obese Orientation/consciousness: Other orientation findings ( oriented) HEENT Head: Yes atraumatic Eyes General: appearance normal, both eyes and all related structures Sclerae: sclerae normal EOM: EOMs intact bilaterally Neck Neck: Yes supple Lymphatic: no lymphadenopathy noted Resp Effort & Inspection: normal respiratory effort and no use of accessory muscles Auscultation: clear to auscultation bilaterally Cardio Rate: regular rate Rhythm: regular rhythm Heart sounds: no gallops, no murmurs and no rubs Skin General skin exam: other ( warm) Extrem General: No clubbing, No cyanosis and Yes edema (1+ bilateral) Assessment & Plan Assessment & Plan (1) Severe sleep apnea: Code(s): G47.30 - Sleep apnea, unspecified Category: Medical Plan: Significantly improved control on current CPAP therapy. Continue CPAP therapy. (2) Emphysema lung: Code(s): J43.9 - Emphysema, unspecified Category: Medical Plan: Results of pulmonary function test reviewed and essentially normal. Patient appears to have major cardiac contribution to his underlying dyspnea on exertion with AFib and orthopnea. Coding Level of Care Code Est Pt Level 4 (13598) Diagnoses Severe sleep apnea G47.30 Emphysema lung J43.9
== END 2024-09-18 14:59 | disposition home or self-care (01) ==
PROVIDERS: PCP Internal Medicine; Visit Provider Internal Medicine Pulmonary Disease
DX: G47.30 Sleep apnea, unspecified (principal); J43.9 Emphysema, unspecified
CPT/HCPCS: 99214

== ENCOUNTER → 2024-09-18 14:32 | Outpatient (BNVA) | payer BC, SELFPAY | PROVIDERS: PCP Internal Medicine; Visit Provider Internal Medicine Pulmonary Disease ==

== ENCOUNTER 2024-09-24 14:46 | Outpatient (AMB) | payer BC, SELFPAY ==
[2024-09-24 14:50] VITALS: BP 124/80; PULSE 75; BMI 37.0
--- NOTE | 2024-09-24 14:50 | A.OFFVIS_ITS ---
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 He continues to have symptoms exertional fatigue and shortness of breath. Denies any orthopnea, PND, leg edema, weight gain, abdominal distention. Takes all his medications although he did not come for his last cardioversion appointment and currently still is on 400 mg b.i.d. of loading dose of amiodarone. This was never reduced. Taking all his medications including Jardiance, metoprolol and Entresto. He was also on diuretic with Lasix. Will also taking his oral anticoagulation religiously. He said he has also been using his CPAP for about a month. He has not noticed any significant change in his overall functionality. He feels little disappointed about the same. [facility] Medical History Left atrial thrombus CHF (congestive heart failure) Atrial fibrillation with rapid ventricular response Acute HFrEF (heart failure with reduced ejection fraction) Afib CHF (congestive heart failure) Hay fever Surgical History Hx of hand surgery History of cataract surgery Social History Household Members: Spouse Household Members Other:: 2 Housing: House Do you presently have visiting nurse or other home services: No Alcohol intake: current Patient Tobacco Use Status: Former Tobacco user Tobacco use type: Cigarette Cigarette Packs Per Day: 0.5 Cigarettes Per Day: 10.0 Second Hand Smoke Exposure: No Substance Use Type: Marijuana service: No 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 of Systems Const Denies chills, Denies fatigue, Denies fever(s), Denies frequent falls, Denies weakness, Denies weight gain and Denies weight loss ENT Denies dizziness Card Denies chest pain, Denies leg edema, Denies lightheadedness, Denies palpitations, Denies dyspnea, Denies dyspnea on exertion, Denies orthopnea and Denies other (loss of consciousness) Resp Denies cough, Denies dyspnea and Denies dyspnea on exertion GI Denies hematochezia and Denies change in stool character Musc Denies abnormal gait, Denies muscle weakness, Denies numbness, Denies radiating pain into limb and Denies tingling Neuro Denies abnormal gait, Denies dizziness, Denies frequent falls, Denies numbness, Denies tingling and Denies weakness Endo Denies fatigue and Denies palpitations Physical Exam Vital Signs: Last Vital Signs Pulse 75 09/24/24 14:50 BP 124/80 09/24/24 14:50 BMI result Body Mass Index 37.0 Const General: cooperative, comfortable, no acute distress, alert and awake Nutritional Appearance: obese Orientation/consciousness: patient oriented x3 Neck Neck: Yes trachea midline, Yes supple and Yes no JVD Resp Effort & Inspection: normal respiratory effort Auscultation: clear to auscultation bilaterally Cardio Jugular venous distension: no JVD Palpation: abnormal PMI displaced PMI Rate: regular rate Rhythm: abnormal rhythm irregularly irregular Heart sounds: S1 normal heart sound present, S2 normal heart sound present, no click, no gallops, no murmurs and no rubs GI Auscultation: normal bowel sounds Skin General skin exam: no rashes or lesions noted Neuro General: patient oriented x3 and no focal motor deficits Extrem General: Yes no clubbing, cyanosis or edema Office Procedures EKG Details: EKG shows atrial fibrillation with left axis deviation right bundle-branch block with Q-waves in inferior leads with leftward axis [id number], Complete Assessment & Plan Assessment & Plan (1) Heart failure with reduced ejection fraction: Code(s): I50.20 - Unspecified systolic (congestive) heart failure Category: Medical Plan: Heart failure with reduced ejection fraction with persistent moderate to severe LV systolic dysfunction related to nonischemic cardiomyopathy. Continues to have NYHA class 2 symptoms. No clinical signs of volume overload or decompensated congestive heart failure. Continue current diuretic regimen. He symptomatic given persistent LV systolic dysfunction as well as persistent atrial fibrillation. Pursue rhythm control approach, see below. Continue current neurohormonal modulation with Entresto, metoprolol, Jardiance. Daily weight monitoring avoidance salt loading was discussed. Importance of understanding his disease process understanding his medications was discussed with him. Continue CPAP therapy which is very important. Avoid alcohol use. (2) Persistent atrial fibrillation: Code(s): I48.19 - Other persistent atrial fibrillation Category: Medical Plan: Persistent atrial fibrillation with better rate control on amiodarone loading. I think however benefit given his age from rhythm control approach. Discussed the difficulty in managing rhythm given his longstanding probably atrial fibrillation. However will pursue synchronized cardioversion in near future on amiodarone therapy. If he converts to sinus rhythm will eventually refer him to EP for consideration of ablation. Continue CPAP therapy. Continue full oral anticoagulation uninterrupted, currently on Eliquis 5 mg b.i.d.. Semi annual renal function test to be pursued. I had a very long discussion about management of his overall cardiovascular disease and plan for the future. Spent greater than 40 minutes in managing his complex care. Thank you for allowing me to partake in his care Medications: New amiodarone 200 mg PO DAILY 30 tabs 5RF Discontinued amiodarone Discontinued Reason: Doctor's Order 400 mg PO BID 28 tabs 0RF Coding Level of Care Code Est Pt Level 5 (98511) Complex EM visit Add On G2211 Diagnoses Heart failure with reduced ejection fraction I50.20 Persistent atrial fibrillation I48.19 CPT Codes EKG - CPT: 00175-[id number], Complete ([id number])
== END 2024-09-24 15:19 | disposition home or self-care (01) ==
PROVIDERS: PCP Internal Medicine; Visit Provider Internal Medicine Cardiovascular Disease
DX: I50.20 Unspecified systolic (congestive) heart failure (principal); I48.19 Other persistent atrial fibrillation
CPT/HCPCS: 93010; 99215

== ENCOUNTER → 2024-09-24 14:46 | Outpatient (BNVA) | payer BC, SELFPAY | PROVIDERS: PCP Internal Medicine; Visit Provider Internal Medicine Cardiovascular Disease | DX: I50.20 Unspecified systolic (congestive) heart failure (principal); I48.19 Other persistent atrial fibrillation; Z79.01 Long term (current) use of anticoagulants | CPT/HCPCS: 93005 ==

== ENCOUNTER 2024-10-02 13:02 | Day surgery (SDC) | payer BC, SELFPAY ==
--- NOTE | 2024-09-12 09:51 | HO.ANESPROP2 ---
HPI - Anesthesia Eval Consult details Narrative: 64yo M for Cardioversion Eliquis for afib Anesthesia Pre-Procedure Meds Is the patient on any of the following meds?: SGLT2 Inhib PMFSH Active Problems Active Problems: All Active Problems Emphysema lung (Acute) Severe sleep apnea (Acute) Heart failure with reduced ejection fraction (Acute) Persistent atrial fibrillation (Acute) Bilateral primary osteoarthritis of hip (Acute) Alcohol use disorder (Acute) Tobacco abuse (Acute) Atrial fibrillation (Acute) History of prostate cancer (Acute) Elevated PSA (Acute) Past Medical History Medical History Left atrial thrombus CHF (congestive heart failure) Atrial fibrillation with rapid ventricular response Acute HFrEF (heart failure with reduced ejection fraction) Afib CHF (congestive heart failure) Hay fever Family History Family history of problems with anesthesia: No Surgical History Surgical History Hx of hand surgery History of cataract surgery History of Problems with Anesthesia: No Social History Social History Household Members: Spouse Household Members Other:: 2 Housing: House Do you presently have visiting nurse or other home services: No Alcohol intake: current Patient Tobacco Use Status: Current everyday Tobacco user Tobacco use type: Cigarette Cigarette Packs Per Day: 0.5 Cigarettes Per Day: 10.0 Second Hand Smoke Exposure: No Substance Use Type: Marijuana service: No 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 Left Ventricle Normal left ventricular cavity size. There is mildly increased left ventricular wall thickness. The left ventricular systolic function is moderate to severely decreased. The visually estimated ejection fraction is between 30-35%. Diastolic function is indeterminate on the basis of available data. Assessment and Plan Assessment Anesthesia Assessment: Chart Reviewed Final Anesthetic Review Family History of Problems with Anesthesia: No History of Problems with Anesthesia: No
[2024-09-30 13:23] VITALS: BMI 36.9
[2024-10-02 13:30] VITALS: BP 107/68; PULSE 77; RESP 18; TEMP 36.3; O2SAT 95; BMI 35.4
[2024-10-02] MEDS: Lactated Ringers 1,000 ML 50 ML IVCONT (13:36)
--- NOTE | 2024-10-02 13:46 | P.CONAN_ITS ---
[facility] Active Problems Active Problems: All Active Problems Emphysema lung (Acute) Severe sleep apnea (Acute) Heart failure with reduced ejection fraction (Acute) Persistent atrial fibrillation (Acute) Bilateral primary osteoarthritis of hip (Acute) Alcohol use disorder (Acute) Tobacco abuse (Acute) Atrial fibrillation (Acute) History of prostate cancer (Acute) Elevated PSA (Acute) Past Medical History Medical History Left atrial thrombus CHF (congestive heart failure) Atrial fibrillation with rapid ventricular response Acute HFrEF (heart failure with reduced ejection fraction) Afib CHF (congestive heart failure) Hay fever Functional capacity: independent ambulation Family History Family history of problems with anesthesia: No Surgical History Surgical History Hx of hand surgery History of cataract surgery History of Problems with Anesthesia: No Social History Social History Household Members: Spouse Household Members Other:: 2 Housing: House Do you presently have visiting nurse or other home services: No Alcohol intake: current Patient Tobacco Use Status: Current everyday Tobacco user Tobacco use type: Cigarette Cigarette Packs Per Day: 0.5 Cigarettes Per Day: 10.0 Second Hand Smoke Exposure: No Use of substances other than those prescribed or required for medical reasons: No Substance Use Type: Marijuana Are you DNR?: No Advance Directives: No Advance Directives Information Provided: Yes service: No 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 Allergies Allergy/AdvReac Type Severity Reaction Status Date / Time No Known Allergies Allergy Verified 06/19/24 13:48 Active Medications: Current Medications Lactated Ringer's (Lr) 1,000 mls @ 50 mls/hr IVCONT .Q20H REBEKAH Last Admin: 10/02/24 13:36 Dose: 50 mls/hr Home Medications ?Medication ?Instructions ?Recorded ?Confirmed ?Last Taken ?Type cetirizine 10 mg chewable tablet 10 mg PO DAILY 09/06/23 10/02/24 10/02/24 07:30 History (Zyrtec) Exam Height,Weight and Vital Signs: Height 5 ft 10 in Weight 112.037 kg Last Vital Signs Temp 97.4 F 10/02/24 13:30 Pulse 77 10/02/24 13:30 Resp 18 10/02/24 13:30 BP 107/68 10/02/24 13:30 Pulse Ox 95 10/02/24 13:30 O2 Del Method Room Air 10/02/24 13:30 Airway Mallampati Class: III TM Dist: >3cm Neck ROM: Full Heart: Irregular Lungs: CTA Assessment and Plan Assessment Anesthesia Assessment: Anesthesia Plan Discussed, Smoking Cess. Discussed and Chart Reviewed Final Anesthetic Review Family History of Problems with Anesthesia: No History of Problems with Anesthesia: No NPO: Yes ASA Class: III Final Preanesthetic Review: Meds/Allgs Chart Reviewed, Consent Obtained/Reviewed and Anes Risks/Benef Reviewed Patient Risk: Intermediate Procedure Risk: Intermediate Anesthetic Plan Anesthetic Plan: GA Disposition: Standard PACU
--- NOTE | 2024-10-02 13:59 | ECG_ITS ---
Test Reason : s/p cardioversion Blood Pressure : */* mmHG Vent. Rate : 53 BPM Atrial Rate : 53 BPM P-R Int : 190 ms QRS Dur : 148 ms QT Int : 480 ms P-R-T Axes : -22 -65 -52 degrees QTcB Int : 450 ms Sinus bradycardia Left axis deviation Right bundle branch block Inferior infarct (cited on or before 01-Jan-2024) T wave abnormality, consider lateral ischemia Abnormal ECG When compared with ECG of 06-Mar-2024 15:20, Questionable change in initial forces of Inferior leads Referred By: Malcolm Krishnamurthy Electronically Signed By: MALCOLM KRISHNAMURTHY MD
[2024-10-02 14:12] VITALS: BP 125/69; PULSE 57; RESP 16; TEMP 36.1; O2SAT 97
--- NOTE | 2024-10-02 14:14 | HO.POSTANES ---
Post Anesthesia Evaluation Post Anesthesia Evaluation Date of Service: 10/02/24 Vital Signs: Vital Signs Temp Pulse Resp BP Pulse Ox O2 Del Method 10/02/24 13:30 97.4 F 77 18 107/68 95 Room Air Anesthesia: General Mental Status: Awake Pain Control: Satisfactory Nausea/Vomiting: None Hydration: Adequate Anesthesia-Related Issues: No Anes. Related Issues
[2024-10-02 14:17] VITALS: BP 98/54; PULSE 52; RESP 21; O2SAT 93
[2024-10-02 14:22] VITALS: BP 114/63; PULSE 54; RESP 15; O2SAT 95
[2024-10-02 14:27] VITALS: BP 97/59; PULSE 53; RESP 14; O2SAT 95
--- NOTE | 2024-10-02 14:29 | HO.CARDIVERS ---
Cardioversion Procedure Note Cardioversion Date of Procedure: 10/02/2024 Ordering Provider: Jessica Krishnamurthy Performing Provider: Jessica Krishnamurthy Indication for Procedure: Persistent atrial fibrillation with heart failure with reduced ejection fraction cardiomyopathy Pre-Op Diagnosis: Same Post-Op Diagnosis: Normal sinus rhythm Performed with Transesophageal Echo: No History: See my office note Consent: Verbal and Written consent was obtained from the patient before starting and after confirming oral anticoagulation and amiodarone use. The patient was made aware of the risk of synchronized cardioversion including benefits and alternatives Procedure: After consent obtained, cardioversion pads were attached in anteroposterior configuration and the patient was sedated by the anesthesia team. Once adequate sedation achieved, patient was delivered 200 joules of biphasic synchronized energy in anteroposterior configuration Complications: Low blood pressure post cardioversion most likely related to anesthesia effect Impression: Successful conversion to sinus rhythm Recommendations: 1. 250 cc bolus of normal saline 2. Twelve lead EKG 3. Continue all medications 4. Follow up in the office after Holter monitor
[2024-10-02 14:48] VITALS: BP 109/64; PULSE 52; RESP 16; TEMP 36.2; O2SAT 97
== END 2024-10-02 15:00 | disposition home or self-care (01) ==
PROVIDERS: PCP Internal Medicine; Visit Provider Internal Medicine Cardiovascular Disease
PROC: 5A2204Z Restoration of Cardiac Rhythm, Single (ICD-10-PCS; principal; 2024-10-02 13:30)
DX: I48.19 Other persistent atrial fibrillation (principal); I50.20 Unspecified systolic (congestive) heart failure; I42.9 Cardiomyopathy, unspecified; I95.81 Postprocedural hypotension; R94.31 Abnormal electrocardiogram [ECG] [EKG]; Z79.01 Long term (current) use of anticoagulants; Z79.899 Other long term (current) drug therapy
CPT/HCPCS: 92960; 93005; J2003; J2704

== ENCOUNTER → 2024-10-02 13:02 | Outpatient (BNV) | payer BC, SELFPAY | PROVIDERS: PCP Internal Medicine; Visit Provider Internal Medicine Cardiovascular Disease | DX: I48.19 Other persistent atrial fibrillation (principal); I50.20 Unspecified systolic (congestive) heart failure; R94.31 Abnormal electrocardiogram [ECG] [EKG] | CPT/HCPCS: 92960; 93010 ==

== ENCOUNTER 2024-11-04 14:47 | Outpatient (AMB) | payer BC, SELFPAY ==
--- NOTE | 2024-11-04 14:48 | A.OFFVIS_ITS ---
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 Has seen electrophysiology recently and plan for ablation although he does not have a date. Maintaining rhythm. Denies any prolonged palpitation irregular heartbeat. Denies lightheadedness, syncope. Complains of more urinary urgency. No orthopnea, PND, leg edema. He has been gaining weight due to eating better. No abdominal distension or leg edema. Denies any lightheadedness, syncope. Taking all his medications currently although he does not know his medications well. [facility] Medical History (Updated 11/04/24 @ 15:09 by Malcolm Krishnamurthy MD) Persistent atrial fibrillation Left atrial thrombus CHF (congestive heart failure) Atrial fibrillation with rapid ventricular response Acute HFrEF (heart failure with reduced ejection fraction) Afib CHF (congestive heart failure) Hay fever Surgical History Hx of hand surgery History of cataract surgery Social History Household Members: Spouse Household Members Other:: 2 Housing: House Do you presently have visiting nurse or other home services: No Alcohol intake: current Patient Tobacco Use Status: Current everyday Tobacco user Tobacco use type: Cigarette Cigarette Packs Per Day: 0.5 Cigarettes Per Day: 10.0 Second Hand Smoke Exposure: No Substance Use Type: Marijuana service: No 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 of Systems Const Denies chills, Denies fatigue, Denies fever(s), Denies frequent falls, Denies weakness, Denies weight gain and Denies weight loss ENT Denies dizziness Card Denies chest pain, Denies leg edema, Denies lightheadedness, Denies palpitations, Denies dyspnea, Denies dyspnea on exertion, Denies orthopnea and Denies other (loss of consciousness) Resp Denies cough, Denies dyspnea and Denies dyspnea on exertion GI Denies hematochezia and Denies change in stool character Musc Denies abnormal gait, Denies muscle weakness, Denies numbness, Denies radiating pain into limb and Denies tingling Neuro Denies abnormal gait, Denies dizziness, Denies frequent falls, Denies numbness, Denies tingling and Denies weakness Endo Denies fatigue and Denies palpitations Physical Exam Vital Signs: Last Vital Signs Pulse 60 11/04/24 14:49 BP 108/60 11/04/24 14:49 BMI result Body Mass Index 36.7 Const General: cooperative, comfortable, no acute distress, alert and awake Nutritional Appearance: obese Orientation/consciousness: patient oriented x3 Neck Neck: Yes trachea midline, Yes supple and Yes no JVD Resp Effort & Inspection: normal respiratory effort Auscultation: clear to auscultation bilaterally Cardio Jugular venous distension: no JVD Palpation: abnormal PMI displaced PMI Rate: regular rate Rhythm: abnormal rhythm irregularly irregular Heart sounds: S1 normal heart sound present, S2 normal heart sound present, no click, no gallops, no murmurs and no rubs GI Auscultation: normal bowel sounds Skin General skin exam: no rashes or lesions noted Neuro General: patient oriented x3 and no focal motor deficits Extrem General: Yes no clubbing, cyanosis or edema Office Procedures EKG Details: EKG shows normal sinus rhythm with right bundle-branch block and left anterior fascicular block with T-wave changes in the anterior leads suggestive of RV strain [id number], Complete Assessment & Plan Assessment & Plan (1) Heart failure with reduced ejection fraction: Code(s): I50.20 - Unspecified systolic (congestive) heart failure Category: Medical Plan: Heart failure with reduced ejection fraction, persistent NYHA class 2 symptoms without any signs or symptoms of fluid overload. Will refer to phase 2 cardiac rehabilitation. Currently maintaining rhythm. Continue current diuretic regimen. Continue current neurohormonal modulation with metoprolol, Jardiance, Entresto. Daily weight monitoring avoidance salt loading was discussed. Increase exercise was discussed. Pursue rhythm control approach and pursue with ablation, see below. Follow-up echocardiogram 6 weeks time. Continue CPAP therapy. (2) Paroxysmal atrial fibrillation: Code(s): I48.0 - Paroxysmal atrial fibrillation Category: Medical Plan: Atrial fibrillation which was difficult control, currently on amiodarone status post cardioversion. Continue amiodarone therapy. Follow up with EPS for ablated therapy. Continue CPAP therapy. Continue full oral anticoagulation, currently on Eliquis 5 mg b.i.d.. Continue participate in weight loss program. Follow up in the clinic in 2 months time, sooner p.r.n.. Thank you for allowing me to partake in his care Orders: Orders Cardiac Rehab Today I50.20 - Unspecified systolic (congestive) heart failure CA Echo Limited 6 Weeks I42.9 - Cardiomyopathy, unspecified, I50.20 - Unspecified systolic (congestive) heart failure Coding Level of Care Code Est Pt Level 4 (81812) Complex EM visit Add On G2211 Diagnoses Heart failure with reduced ejection fraction I50.20 Paroxysmal atrial fibrillation I48.0 CPT Codes EKG - CPT: 32374-Gexjrjhnehnesyafc, Complete ([id number])
[2024-11-04 14:49] VITALS: BP 108/60; PULSE 60; BMI 36.7
== END 2024-11-04 15:09 | disposition home or self-care (01) ==
LOC: HO.HCS 14:48
PROVIDERS: PCP Internal Medicine; Visit Provider Internal Medicine Cardiovascular Disease
DX: I50.20 Unspecified systolic (congestive) heart failure (principal); I48.0 Paroxysmal atrial fibrillation
CPT/HCPCS: 93010; 99214

== ENCOUNTER → 2024-11-04 14:47 | Outpatient (BNVA) | payer BC, SELFPAY | PROVIDERS: PCP Internal Medicine; Visit Provider Internal Medicine Cardiovascular Disease | DX: I50.20 Unspecified systolic (congestive) heart failure (principal); I48.0 Paroxysmal atrial fibrillation; R94.31 Abnormal electrocardiogram [ECG] [EKG]; I45.10 Unspecified right bundle-branch block | CPT/HCPCS: 93005 ==

== ENCOUNTER 2024-12-04 13:46 | Outpatient (AMB) | payer BC, SELFPAY ==
[2024-12-04 13:27] VITALS: BP 120/70; PULSE 58; TEMP 36.3; O2SAT 97; BMI 37.0
--- NOTE | 2024-12-04 13:27 | MHC.PC.OV ---
Vital Signs 12/04/24 13:27 Height 5 ft 10 in Weight 258 lb BMI 37.0 BP 120/70 Blood Pressure Location Lt brachial Position Sitting Pulse 58 Pulse Source Pulse Oximeter Temp 97.3 F Temp Source Axillary Pulse Oximetry (%) 97 Oxygen Delivery Method Room Air Intake Visit Reasons: Routine - see comments Compensation Adjuster Required: No Accompanied by: Self / Same As Patient Allergies No Known Allergies Allergy (Verified 12/04/24 14:24) Tobacco use date assessed: 12/04/24 Dental Screening Dental Screen Date: 12/04/24 Did you have a dental visit in the last 12 months?: Yes Did you have a dental problem in the last 6 months where you did not have access to dental care?: No [facility] Medical History Persistent atrial fibrillation Left atrial thrombus CHF (congestive heart failure) Atrial fibrillation with rapid ventricular response Acute HFrEF (heart failure with reduced ejection fraction) Afib CHF (congestive heart failure) Hay fever Surgical History Hx of hand surgery History of cataract surgery Family History Mother No problems noted. Father No problems noted. 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 1. Little interest or pleasure in doing things: not at all 2. Feeling down, depressed, or hopeless: not at all 3. Trouble falling or staying asleep, or sleeping too much: not at all 4. Feeling tired or having little energy: not at all 5. Poor appetite or overeating: not at all 6. Feeling bad about yourself - or that you are a failure or have let yourself or your family down: not at all 7. Trouble concentrating on things, such as reading the newspaper or watching television: not at all 8. Moving or speaking so slowly that other people could have noticed. Or the opposite - being so fidgety or restless that you have been moving around a lot more than usual: not at all 9. Thoughts that you would be better off or of hurting yourself in some way: not at all Total score: 0 Depression Screening Interpretation: Negative Depression Screening Done: Yes Source: Developed by Drs. Yogi Rivera, Geraldine Matthews, Seth Richardson and colleagues, with an educational vidal from [employer]. Thrive Questionnaire Date Thrive assessed: 12/04/24 I am a: Patient Within the past 12 months, did the food you bought not last and you didn't have the money to get more?: Never true Within the past 12 months, did you worry whether your food would run out before you got money to buy more?: Never true Do you have trouble paying for medicines?: No Do you have trouble getting transportation to medical appointments?: No Do you have trouble paying your heating and electricity bill?: No Do you have trouble taking care of your child, family member or friend?: No Do you have trouble with day-to-day activities such as bathing, preparing meals, shopping, managing finances, etc.?: No Are you currently unemployed and looking for a job?: No Are you interested in more education?: No Currently or been in a relationship where the following occur: No concerns reported THRIVE Score: 0 AUDIT C Alcohol Use Questionnaire (AUDIT-C) 1. How often do you have a drink containing alcohol?: Never 3. How often do you have six or more drinks on one occasion?: Never Total Score: 0 DELMAR-7 AMB Questionnaire DELMAR-7 Date DELMAR - 7 assessed: 12/04/24 Feeling nervous, anxious, or on edge: 0 = Not at all Not being able to stop or control worryin = Not at all Worrying too much about different things: 0 = Not at all Trouble relaxin = Not at all Being so restless that it is hard to sit still: 0 = Not at all Becoming easily annoyed or irritable: 0 = Not at all Feeling afraid as if something awful might happen: 0 = Not at all Total DELMAR-7 score (0-4 normal; 5-9 mild; 10-14 moderate; 15-21 severe): 0 Source: Developed by Drs. Yogi Rivera, Geraldine Matthews, Seth Richardson and colleagues, with an educational vidal from [employer]. Physical exam (Primary Care) Vital Signs: Last Vital Signs Temp 97.3 F 12/04/24 13:27 Pulse 58 12/04/24 13:27 BP 120/70 12/04/24 13:27 Pulse Ox 97 12/04/24 13:27 Oxygen Delivery Method Room Air 12/04/24 13:27 Care Plan Goal for BP management: BP in range. BMI result Body Mass Index 37.0 BMI Assessment/Plan discussion: High (one pound per week weight loss) BMI High, discussed plan: lifestyle, weight reduction and dietary Tobacco/Smoking Status: Tobacco use Status Tobacco use date assessed 12/04/24 12/04/24 13:28 Patient Tobacco Use Status Current everyday Tobacco 12/04/24 13:28 Tobacco use type Cigarette 12/04/24 13:28 e-Cigarette/Vaping Use Currently Using 12/04/24 13:28 Are you ready to quit: No Tobacco cessation counseling provided: No PHQ-9: PHQ-9 Score PHQ-9: Total score 0 12/04/24 14:01 Depression Screening Interpretation: Negative Thrive Assessment: Date of Thrive Assessment Date Thrive assessed 12/04/24 12/04/24 13:28 Currently or been in a relationship where the following occur: No concerns reported Coding Level of Care Code New Pt Level 4 (58916) Complex EM visit Add On G2211 Diagnoses Atrial fibrillation I48.91 History of prostate cancer Z85.46 Assessment & Plan Assessment & Plan (1) Atrial fibrillation: Code(s): I48.91 - Unspecified atrial fibrillation Category: Medical Plan: Rate well controlled. Sinus rhythm. Continue current anticoagulation (2) History of prostate cancer: Code(s): Z85.46 - Personal history of malignant neoplasm of prostate Category: Medical Plan: Will check PSA. Urology appt Plan History of Present Illness The patient is a 64-year-old male presenting with a follow-up for atrial fibrillation and a wellness visit. He reports that his atrial fibrillation was discovered in December of the previous year during a preoperative evaluation for a prostate-related procedure. He was placed on anticoagulation therapy after diagnosis and has undergone multiple cardioversions. He is currently in sinus rhythm but remains on anticoagulation therapy as advised by Dr. Krishnamurthy. The patient has been prescribed Jardiance for cardiac purposes. The patient has a history of prostate cancer, with a 1 cm spot discovered in December of the prior year. Follow-ups with the urologist were postponed due to atrial fibrillation treatment. The patient expresses concern about this delay in managing his prostate cancer. The patient also notes a history of skin infections characterized by the presence of bumps which have recently increased. He is not aware of his current blood glucose levels. Additionally, he has chronic varicose veins but no indications of skin cancer. 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 - Alcohol use: Reports having given up alcohol for [place], consumed only occasionally since then. - Family History: No strong family history of colon cancer reported. - Screening: Has had a previous colonoscopy; prefers to undergo Cologuard testing. Review of Systems - Cardiovascular: Reports being back in rhythm post-cardioversion, currently on anticoagulation therapy. - Dermatological: Reports presence of skin infections and multiple bumps. - Genitourinary: Reports history of prostate cancer with a 1 cm spot; no recent follow-up. - Endocrine: Denies diabetes. - Gastrointestinal: Denies current gastrointestinal symptoms; interested in Cologuard for colon cancer screening. Physical Exam General: Cooperative and healthy appearing Nutritional Appearance: Well nourished Orientation/consciousness: Patient oriented x3 Limitations: No limitations Head: Normal to inspection General: Appearance normal, both eyes and all related structures Neck: Normal visual inspection Chest: Normal palpation of entire chest wall Respiratory: Normal respiratory effort Neurology: Patient oriented x3 Results - Tests and Diagnostics: Past cardioversions for atrial fibrillation, PSA indicating a spot of prostate cancer. Plan 1. Atrial Fibrillation - Continuation of anticoagulation therapy. - Monitoring of cardiac status through regular blood work. 2. Prostate Cancer - Schedule follow-up with urology for ongoing management. - Further interventions to be determined by urology evaluation. 3. Skin Infections - Check blood glucose levels to assess for potential diabetes-related skin issues. - Further evaluation of skin infections is necessary. 4. Varicose Veins - Continue observation without immediate intervention. Discussion Notes I discussed that the patient remains in sinus rhythm post-cardioversion for atrial fibrillation. Continuation of anticoagulation therapy was advised as per the previous global cmo's recommendation. Jardiance is being used as part of cardiac management. We reviewed the need for a follow-up with urology to address the 1 cm spot of prostate cancer discovered last year, emphasizing the importance of further evaluation. I acknowledged the patient's concerns regarding skin infections and advised on potential blood sugar level assessments to rule out diabetes-related complications. The options for colon cancer screening were discussed, with the patient opting for Cologuard. Patient Instructions - Keep taking prescribed anticoagulation medication as directed. - Follow-up with the urologist for prostate cancer evaluation. - Plan for blood work to check cardiac status and blood glucose levels. - Proceed with the Cologuard test for colon cancer screening. - Monitor and record any changes or new symptoms. Orders: Orders Complete Blood Count no Diff Today I48.91 - Unspecified atrial fibrillation, Z85.46 - Personal history of malignant neoplasm of prostate Liver Panel Today I48.91 - Unspecified atrial fibrillation, Z85.46 - Personal history of malignant neoplasm of prostate Thyroid Stimulating Hormone Today I48.91 - Unspecified atrial fibrillation, Z85.46 - Personal history of malignant neoplasm of prostate UA and rflx microscopic Today I48.91 - Unspecified atrial fibrillation, Z85.46 - Personal history of malignant neoplasm of prostate Hemoglobin A1c Today I48.91 - Unspecified atrial fibrillation, Z85.46 - Personal history of malignant neoplasm of prostate Prostate Specific Antigen Scr Today I48.91 - Unspecified atrial fibrillation, Z85.46 - Personal history of malignant neoplasm of prostate Basic Metabolic Panel Today I48.91 - Unspecified atrial fibrillation, Z85.46 - Personal history of malignant neoplasm of prostate Lipase Today I48.91 - Unspecified atrial fibrillation, K85.90 - Acute pancreatitis without necrosis or infection, unspecified, Z85.46 - Personal history of malignant neoplasm of prostate Lipid Panel Today I48.91 - Unspecified atrial fibrillation, Z85.46 - Personal history of malignant neoplasm of prostate Referrals Cologuard Test Z12.11 - Encounter for screening for malignant neoplasm of colon Urology Referral Z85.46 - Personal history of malignant neoplasm of prostate
== END 2024-12-04 14:18 | disposition home or self-care (01) ==
LOC: HO.HMCHD 13:46
PROVIDERS: PCP Internal Medicine; Visit Provider Internal Medicine
DX: I48.91 Unspecified atrial fibrillation (principal); Z85.46 Personal history of malignant neoplasm of prostate

== ENCOUNTER → 2024-12-04 13:46 | Outpatient (BNVA) | payer BC, SELFPAY | PROVIDERS: PCP Internal Medicine; Visit Provider Internal Medicine | DX: Z13.89 Encounter for screening for other disorder (principal) ==

== ENCOUNTER 2025-01-06 14:59 | Outpatient (AMB) | payer BC, SELFPAY ==
--- NOTE | 2025-01-06 15:03 | A.OFFVIS_ITS ---
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 Has seen electrophysiology and has not got a date for ablation as yet. He has stopped drinking alcohol he says. He however continues to have exertional shortness of breath and fatigue. Denies any orthopnea, PND, leg edema. Says gradually been gaining weight as he has been eating more. He has had no prolonged palpitation irregular heartbeat. No lightheadedness, syncope. Taking all his medications. No bleeding issues or neurologic events. [facility]LY [facility] Medical History Persistent atrial fibrillation Left atrial thrombus CHF (congestive heart failure) Atrial fibrillation with rapid ventricular response Acute HFrEF (heart failure with reduced ejection fraction) Afib CHF (congestive heart failure) Hay fever Surgical History Hx of hand surgery History of cataract surgery Family History Mother No problems noted. Father No problems noted. 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: No Hearing needs: No Vision needs: No Review of Systems Const Denies chills, Denies fatigue, Denies fever(s), Denies frequent falls, Denies weakness, Denies weight gain and Denies weight loss ENT Denies dizziness Card Denies chest pain, Denies leg edema, Denies lightheadedness, Denies palpitations, Denies dyspnea, Denies dyspnea on exertion, Denies orthopnea and Denies other (loss of consciousness) Resp Denies cough, Denies dyspnea and Denies dyspnea on exertion GI Denies hematochezia and Denies change in stool character Musc Denies abnormal gait, Denies muscle weakness, Denies numbness, Denies radiating pain into limb and Denies tingling Neuro Denies abnormal gait, Denies dizziness, Denies frequent falls, Denies numbness, Denies tingling and Denies weakness Endo Denies fatigue and Denies palpitations Physical Exam Vital Signs: Last Vital Signs Pulse 61 01/06/25 15:04 BP 120/74 01/06/25 15:04 BMI result Body Mass Index 38.0 Const General: cooperative, comfortable, no acute distress, alert and awake Nutritional Appearance: obese Orientation/consciousness: patient oriented x3 Neck Neck: Yes trachea midline, Yes supple and Yes no JVD Resp Effort & Inspection: normal respiratory effort Auscultation: clear to auscultation bilaterally Cardio Jugular venous distension: no JVD Palpation: abnormal PMI displaced PMI Rate: regular rate Rhythm: abnormal rhythm irregularly irregular Heart sounds: S1 normal heart sound present, S2 normal heart sound present, no click, no gallops, no murmurs and no rubs GI Auscultation: normal bowel sounds Skin General skin exam: no rashes or lesions noted Neuro General: patient oriented x3 and no focal motor deficits Extrem General: Yes no clubbing, cyanosis or edema Office Procedures EKG Details: EKG shows normal sinus rhythm with right bundle-branch block and left anterior fascicular block [id number], Complete Assessment & Plan Assessment & Plan (1) Paroxysmal atrial fibrillation: Code(s): I48.0 - Paroxysmal atrial fibrillation Category: Medical Plan: Paroxysmal atrial fibrillation suppressed on amiodarone therapy. No signs or symptoms of heart failure. He has not noticed any significant improvement in his symptoms overall. Will continue amiodarone therapy. Strongly recommended to pursue ablation to eventually come off amiodarone therapy and to pursue rhythm control approach. Continue full oral anticoagulation, currently on Eliquis 5 mg b.i.d.. Abstinence from alcohol was applauded. Advised to continue avoid stimulants. Continue CPAP therapy. Continue aggressive blood pressure control. (2) Heart failure with reduced ejection fraction: Code(s): I50.20 - Unspecified systolic (congestive) heart failure Category: Medical Plan: Heart failure with reduced ejection fraction with persistent moderate to severe LV systolic dysfunction. Will follow-up echocardiogram near future in normal sinus rhythm to see if there has improvement in LV ejection fraction. Continue current neurohormonal modulation with Entresto, metoprolol as as Jardiance. Continue current diuretic dose. Daily weight monitoring avoidance salt loading was discussed. Additional diuretics as need be. Continue CPAP therapy. Given his persistent symptoms with refer him to phase 2 cardiac rehabilitation to improve exercise activity and capacity. Recommended to participate in weight loss program. Follow up in the clinic in 3 months time, sooner p.r.n.. Thank you for allowing me to partake in his care Orders: Orders CA echo transthoracic complete Today I50.20 - Unspecified systolic (congestive) heart failure Cardiac Rehab Today I50.20 - Unspecified systolic (congestive) heart failure Coding Level of Care Code Est Pt Level 4 (19372) Complex EM visit Add On G2211 Diagnoses Paroxysmal atrial fibrillation I48.0 Heart failure with reduced ejection fraction I50.20 CPT Codes EKG - CPT: 67142-[id number], Complete ([id number])
[2025-01-06 15:04] VITALS: BP 120/74; PULSE 61; BMI 38.0
== END 2025-01-06 15:29 | disposition home or self-care (01) ==
LOC: HO.HCS 15:00
PROVIDERS: PCP Internal Medicine; Visit Provider Internal Medicine Cardiovascular Disease
DX: I48.0 Paroxysmal atrial fibrillation (principal); I50.20 Unspecified systolic (congestive) heart failure
CPT/HCPCS: 93010; 99214

== ENCOUNTER → 2025-01-06 14:59 | Outpatient (BNVA) | payer BC, SELFPAY | PROVIDERS: PCP Internal Medicine; Visit Provider Internal Medicine Cardiovascular Disease | DX: I11.0 Hypertensive heart disease with heart failure (principal); I50.20 Unspecified systolic (congestive) heart failure; I45.10 Unspecified right bundle-branch block; I48.0 Paroxysmal atrial fibrillation | CPT/HCPCS: 93005 ==

== ENCOUNTER 2025-01-30 10:19 | Outpatient (AMB) | payer BC, SELFPAY ==
--- NOTE | 2025-01-30 10:23 | MHC.OFFVIS ---
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 He has a patient of Dr. Diamond. He seen for the following urologic conditions - elevated PSA Last seen November 2023 At that point in time recommendation for fusion biopsy Subsequently he had some issues cardiac related with AFib Elevated PSA PSA 08/23 9.0 Prostate MRI performed. Gland not significantly enlarged 25 g. PI-RADS 4 1.1cm lesion right mid posterolateral peripheral zone [facility] Medical History Persistent atrial fibrillation Left atrial thrombus CHF (congestive heart failure) Atrial fibrillation with rapid ventricular response Acute HFrEF (heart failure with reduced ejection fraction) Afib CHF (congestive heart failure) Hay fever Surgical History Hx of hand surgery History of cataract surgery Family History Mother No problems noted. Father No problems noted. 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: No Hearing needs: No Vision needs: No Review of Systems Const Denies chills and Denies fever(s) Card Reports no additional complaints and Denies syncope Resp Denies cough GI Denies abdominal pain and Denies heartburn Reports as per HPI and Denies change in libido Neuro Denies syncope Psych Denies change in libido Endo Denies change in libido Physical Exam Const General: cooperative, healthy appearing, comfortable and no acute distress Orientation/consciousness: patient oriented x3 HEENT Face and sinus: Yes normal facial exam Mouth: moist mucous membranes Neck Neck: Yes normal visual inspection, Yes full ROM and Yes trachea midline Chest Chest palpation & inspection: normal inspection of the chest Resp Effort & Inspection: normal respiratory effort, able to speak in complete sentences and no respiratory distress GI Inspection: Yes normal to inspection Back/Spine/Pelvis Cervical Spine: normal cervical lordosis Thoracic/Lumbar Spine: thoracic and lumbar spine normal to inspection Skin General skin exam: no rashes or lesions noted Neuro General: patient oriented x3, gait normal, tone normal and moves all extremities Extrem General: Yes normal to inspection and Yes capillary refill normal Assessment & Plan Assessment & Plan (1) Elevated PSA: Code(s): R97.20 - Elevated prostate specific antigen [PSA] Category: Medical Plan Risks, benefits and alternatives to therapy were discussed. These include but are not limited to infection, bleeding, damage to local organs and tissues, need for further interventions. Anesthetic risks regarding cardiac arrhythmia, blood clots, and potential mortality were discussed. The patient understands the typical recovery time and the outpatient nature of the procedure. After consideration of these risks the patient gives full informed consent and they wish to move ahead with the procedure. - ultrasound fusion prostate biopsy Patient Instructions: This note is constructed using voice recognition software. While every effort has been made to ensure accuracy work station support specialist errors may have been included. Imaging studies, laboratory and physical exam results were discussed and reviewed in detail. No major barriers to patient understanding were identified. An opportunity to ask questions regarding the treatment plan was provided. All questions were answered. The patient expressed understanding and agreement with the above treatment plan. The patient is aware they should contact our office by phone for worsening of their current condition or the appearance of new urologic symptoms. Compliance is encouraged with any medications and followup testing that is ordered. It is a privilege to participate in the urologic care of your patient. If you have any questions or concerns regarding treatment for the above conditions, or other urologic issues, please do not hesitate to contact me. The office telephone contact is [phone]. Sincerely, Dr Epi Marie MD, [facility] - Urology Compassionate Specialist Care for the Genitourinary System Coding Level of Care Code Est Pt Level 4 (62350) Diagnoses Elevated PSA R97.20
== END 2025-01-30 10:44 | disposition home or self-care (01) ==
LOC: HO.HUSH 10:20
PROVIDERS: PCP Internal Medicine; Visit Provider Urology
DX: R97.20 Elevated prostate specific antigen [PSA] (principal); Z13.9 Encounter for screening, unspecified
CPT/HCPCS: 99214

== ENCOUNTER → 2025-01-30 10:19 | Outpatient (BNVA) | payer BC, SELFPAY | PROVIDERS: PCP Internal Medicine; Visit Provider Urology | DX: R97.20 Elevated prostate specific antigen [PSA] (principal) | CPT/HCPCS: 81003 ==

== ENCOUNTER 2025-02-20 08:23 | Outpatient (REF) | payer BC, SELFPAY ==
[2025-02-20 09:02] LABS: Hematocrit 49.8 % (42.0-52.0); Hemoglobin 17.2 g/dl (14.0-18.0); Mean Corpuscular HGB Conc 34.5 g/dl (31.0-36.0); Mean Corpuscular Hemoglobin 29.7 pg (27.0-33.0); Mean Corpuscular Volume 86.0 fL (80.0-98.0); NRBC Abs Auto 0.000 X10*3/uL (0.0-0.012); NRBC Pct Auto 0.0 /100WBC (0.0-0.2); Platelet Count 237 X10*3/uL (160-400); Red Blood Count 5.79 X10*6/uL (4.60-5.80); White Blood Count 11.6 X10*3/uL (4.8-10.8)
[2025-02-20 09:04] LABS: Appearance Urine Clear; Glucose Urine UA 500 mg/dL (Negative); PH 6.0 (5.0-9.0); Specific Gravity - Urine 1.015 (1.005-1.025)
[2025-02-20 09:15] LABS: Hemoglobin A1C 155.1502 umol/L; Total Hemoglobin (HGBA1C) 4352.2531 umol/L
[2025-02-20 09:35] LABS: Alanine Aminotransferase 30 U/L (0-40); Albumin Level 3.9 g/dL (3.5-5.0); Alkaline Phosphatase 86 U/L (39-117); Anion Gap 12 (12-20); Aspartate Amino Transferase 26 U/L (5-37); Blood Urea Nitrogen 23 mg/dL (9-16); Calcium 9.1 mg/dL (8.4-10.2); Carbon Dioxide 25 mmol/L (22-29); Chloride 106 mmol/L (96-108); Cholesterol 249 mg/dL (<200); Estimated Glomerular Filt Rate > 60; HDL Cholesterol 41 mg/dL (>40); Lipase 27 U/L (8-78); Potassium 4.3 mmol/L (3.3-5.1); Sodium 139 mmol/L (135-145); Total Protein 6.8 g/dL (6.5-8.0); Triglycerides 360 mg/dL (<150)
[2025-02-20 09:54] LABS: Thyroid Stimulating Hormone 3.15 uIU/mL (0.32-4.0)
== END 2025-02-20 08:24 | disposition home or self-care (01) ==
LOC: HO.LAB 08:23
PROVIDERS: Visit Provider Internal Medicine
DX: I48.91 Unspecified atrial fibrillation (principal); K85.90 Acute pancreatitis without necrosis or infection, unspecified; Z85.46 Personal history of malignant neoplasm of prostate
CPT/HCPCS: 36415; 80048; 80061; 80076; 81003; 83036; 83690; 84153; 84443; 85027

== ENCOUNTER 2025-03-05 13:30 | Outpatient (RCR) | payer BC, SELFPAY | END 2025-03-17 06:19 | disposition home or self-care (01) | LOC: HO.CR 13:30 | PROVIDERS: PCP Internal Medicine; Visit Provider Internal Medicine Cardiovascular Disease | DX: I50.20 Unspecified systolic (congestive) heart failure (principal) | CPT/HCPCS: 93798 ==

== ENCOUNTER 2025-03-18 07:52 | Outpatient (REF) | payer BC, SELFPAY ==
[2025-03-18] MEDS: Lidocaine HCl 1 % MPF 5 ML VIAL 10 ML SUBCUT (08:35)
--- NOTE | 2025-03-18 11:50 | W.PM.OPN ---
Operative Note Operative Note Date of Service: 03/18/25 Narrative: Preoperative diagnosis: Elevated PSA Postoperative diagnosis: Elevated PSA Procedure: 1. transrectal ultrasound measurement of prostate 2. transrectal ultrasound-guided pudendal nerve block 3. transrectal ultrasound-guided prostate biopsy 12 core Surgeon: Dr. Epi Marie Anesthetic: 10cc 1% lidocaine Indications for procedure: Elevated PSA 10.2 Counselling: Technical aspects, risks and benefits of proposed procedure were discussed in full. All questions have been answered, written consent has been obtained and patient agrees to proceed. Procedure: The patient was brought into the procedure area and placed in a left lateral decubitus position. Patient identity confirmed. Perioperative antibiotics confirmed. Safety pause time out performed. LEONOR was performed to dilate rectal sphincter Iodine 10cc with 60 cc gel was placed per rectum to reduce infection risk using a catheter tip syringe. 8 Hz Dipika rectal end-fire ultrasound probe was placed transrectally without difficulty. The prostate was visualized. Seminal vesicles were normal. Prostate margins were clearly demarcated. Bladder was seen superiorly. No cystic structures were noted No calcifications were noted at the surgical margin The prostate was otherwise homogeneous however had vascular structure on right side in nature - no changes consistent with possible prostate cancer The prostate was measured in 3 dimensions Prostatic Width: 4.1 cm Prostatic Height: 4.2 cm Urethral Length: 4.8 cm Total volume equals : 44 ml An ultrasound-guided pudendal nerve block was performed using a 22 gauge spinal needle in the sagittal plane. 4 cc of 1% lidocaine placed at the junction of each seminal vesicle and 2 cc placed at the apex of the prostate. A 12 core biopsy was performed with 6 cores each side using an 18 gauge prostate biopsy gun. Two cores each were taken at the prostate apex, mid and base on each side. Cores were spaced between lateral and medial aspects. Each core was examined as placed on specimen foam as part of quality assurance lab technician to ensure a minimum 1 cm of length and minimal discontinuity. He tolerated the procedure well with minimal rectal bleeding. Blood pressure remained stable following procedure. He was able to ambulate to bathroom after 5 minutes. Printed instructions regarding antibiotic use and common adverse events from the procedure such as low-grade temperature, potential infection and bleeding were given. He understands to call the office or go to an emergency room should any of these events arise. Pathology: 12 core prostate biopsy. CPT code 74110: Transrectal ultrasound; this is a diagnostic test for evaluation of the prostate and surrounding structures, looking for abnormalities or suspicious areas worrisome for cancer CPT code 87402: Biopsy, prostate; needle or punch, single or multiple, any approach CPT code 28080: Ultrasonic guidance for needle placement (eg, biopsy, aspiration, injection, localization device), imaging supervision and interpretation
== END 2025-03-18 07:53 | disposition home or self-care (01) ==
LOC: HO.US 07:52
PROVIDERS: PCP Internal Medicine; Visit Provider Urology
DX: R97.20 Elevated prostate specific antigen [PSA] (principal)
CPT/HCPCS: 55700; 76942; 88305; 88344; J2003

== ENCOUNTER → 2025-03-18 07:52 | Outpatient (BNV) | payer BC, SELFPAY | PROVIDERS: PCP Internal Medicine; Visit Provider Urology | DX: R97.20 Elevated prostate specific antigen [PSA] (principal) | CPT/HCPCS: 55700; 76872; 76942 ==

== ENCOUNTER 2025-04-02 09:23 | Outpatient (AMB) | payer BC, SELFPAY ==
--- NOTE | 2025-04-02 09:23 | A.OFFVIS_ITS ---
Intake Visit Reasons: Prostate biopsy results Intake Note: Patient presents for Prostate Bx results Urology meds : none BT: cora Materials Scientist Required: No Accompanied by: Self / Same As Patient Allergies No Known Allergies Allergy (Verified 04/02/25 09:24) HPI Comments Details: Samy is a pleasant male. He has a patient of Dr. Diamond. He seen for the following urologic conditions - elevated PSA Telemedicine Evaluation 15 min Consultation [facility] Kina Video Repeat prostate MRI [facility] 4 week follow-up office Prostate cancer - grade group 3, low volume PSA 10.2 TRUS 45cc pT1c Histologic type: Prostatic adenocarcinoma, acinar type Histologic grade: [place] score: 7 (3+4) (left base lateral 25% and right base lateral 25%), 6 (3+3) (left base medial 5%, left apex lateral 5%, right mid medial 50%) Tumor quantitation: Number cores positive: 5 Total number of cores: 12 % of tissue involved: 4% Periprostatic fat inv.: Not identified Seminal vesicle inv.: Not identified Perineural inv.: Not identified Lymphatic and/or vascular invasion: Not identified Previously following up with Dr. Sheppard approximately 8-10 years ago and having had prostate biopsy noting prostate cancer however never followed up Elevated PSA PSA 08/23 9.0 Prostate 10/21. Gland not significantly enlarged 25 g. PI-RADS 4 - 1.1cm lesion right mid posterolateral peripheral zone [facility] Medical History Persistent atrial fibrillation Left atrial thrombus CHF (congestive heart failure) Atrial fibrillation with rapid ventricular response Acute HFrEF (heart failure with reduced ejection fraction) Afib CHF (congestive heart failure) Hay fever Surgical History Hx of hand surgery History of cataract surgery Family History Mother No problems noted. Father No problems noted. 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: No Hearing needs: No Vision needs: No Review of Systems Const All systems reviewed & are unremarkable except as noted in HPI and below Reports no additional complaints Resp Reports no additional complaints GI Reports no additional complaints Reports as per HPI Musc Reports no additional complaints Physical Exam Telemedicine evaluation Appropriate responses Regular breathing rate and rhythm HEENT Head: Yes normal to inspection Ears: hearing grossly normal bilaterally Eyes General: appearance normal, both eyes and all related structures Neck Neck: Yes normal visual inspection Chest Chest palpation & inspection: normal inspection of the chest Resp Effort & Inspection: normal respiratory effort and able to speak in complete sentences Telehealth Telehealth Telehealth Platform: [employer] Location of provider rendering services: practice address Location of patient: address on file Patient Identification confirmed using: Name, : Yes Telehealth method: video Patient verbally consented to treatment: Yes Patient verbally consented to billing insurance company: Yes Patient informed of any privacy concerns related to visit: Yes Assessment & Plan Assessment & Plan (1) Hormone sensitive prostate cancer: Code(s): C61 - Malignant neoplasm of prostate; Z19.1 - Hormone sensitive malignancy status Category: Medical Plan Repeat imaging Genetics Start finasteride Orders: Orders Prostate wo/w con Today C61 - Malignant neoplasm of prostate, Z19.1 - Hormone sensitive malignancy status Medications: New finasteride 5 mg PO DAILY 90 tabs 1RF 90 days C61 - Malignant neoplasm of prostate, Z19.1 - Hormone sensitive malignancy status Patient Instructions: This note is constructed using voice recognition software. While every effort has been made to ensure accuracy earth boring machine operator errors may have been included. Imaging studies, laboratory and physical exam results were discussed and reviewed in detail. No major barriers to patient understanding were identified. An opportunity to ask questions regarding the treatment plan was provided. All questions were answered. The patient expressed understanding and agreement with the above treatment plan. The patient is aware they should contact our office by phone for worsening of their current condition or the appearance of new urologic symptoms. Compliance is encouraged with any medications and followup testing that is ordered. It is a privilege to participate in the urologic care of your patient. If you have any questions or concerns regarding treatment for the above conditions, or other urologic issues, please do not hesitate to contact me. The office telephone contact is [phone]. Sincerely, Dr Epi Marie MD, [facility] - Urology Compassionate Specialist Care for the Genitourinary System Coding Level of Care Code Tele Est Pt Level 4 (59923) Complex EM visit Add On G2211 Diagnoses Hormone sensitive prostate cancer C61; Z19.1
== END 2025-04-02 10:58 | disposition home or self-care (01) ==
PROVIDERS: PCP Internal Medicine; Visit Provider Urology
DX: C61 Malignant neoplasm of prostate (principal); Z19.1 Hormone sensitive malignancy status
CPT/HCPCS: 99214

== ENCOUNTER 2025-04-16 09:02 | Outpatient (REF) | payer BC, SELFPAY ==
--- NOTE | ~2025-04-16 | MR_ITS ---
EXAMINATION: MR PROSTATE WITHOUT THEN WITH IV CONTRAST, MR EXAM UNLISTED HISTORY: C61 - Malignant neoplasm of prostate TECHNIQUE: 1.5T body coil survey of the pelvis was performed. Phase array coil imaging of the prostate was performed in multiplanar high resolution axial, coronal, sagittal fast spin echo T2 and axial T1 weighted imaging sequences. Axial diffusion imaging at intermediate and high field performed with ADC mapping. Next, 10 mL Gadavist was given by intravenous infusion, and dynamic axial imaging performed. 3-D reconstructions and post-processing were performed on an independent workstation by the radiologist for biopsy planning using image fusion. COMPARISON: There are no prior studies available for comparison. CLINICAL DATA: Most recent PSA: 10.14 ng/mL on 02/20/2025. PSA Density: 0.38 ng/mL squared Prostate Biopsy: Positive biopsy on 03/18/2025 with a [place] score 3+4 = 7. FINDINGS: Prostate size: 4.4 x 3.9 x 3.0 cm. Calculated prostate volume is 26.8 mL. Hemorrhage: There is increased T1 signal intensity in the left posterior and lateral peripheral zone consistent with hemorrhage from prior biopsy. Transitional Zone: There is mild heterogeneous nodular hypertrophy of the transitional zone. Peripheral Zone: There are areas of interest in the peripheral zone as described below: Area of interest #1: Location: Right lateral peripheral zone in the mid gland extending to the base measuring up to 1.6 cm (series 7, images 16-22). DWI PI-RADS v2.1 score: 5 T2 PI-RADS v2.1 score: 5 DCE PI-RADS v2.1 score: + Overall PI-RADS v2.1 score: 5 Capsular contact: yes Extracapsular extension: None Seminal vesicle invasion: None Neurovascular bundle involvement: None Area of interest #2: Location: Left lateral peripheral zone in the mid gland/apex measuring 1.4 cm in size and corresponding to areas of hemorrhage (series 7, images 21-23) DWI PI-RADS v2.1 score: 3 T2 PI-RADS v2.1 score: 3 DCE PI-RADS v2.1 score: - Overall PI-RADS v2.1 score: 3 Capsular contact: yes Extracapsular extension: None Seminal vesicle invasion: None Neurovascular bundle involvement: None Seminal Vesicles/Ejaculatory Ducts: Symmetric and normal in signal and caliber. Pelvic Lymph Nodes: No obturator or internal iliac lymph nodes meeting size criteria for adenopathy. Marrow Signal: There is a hypointense lesion in the left femoral neck. MR/MR Prostate wo/w con IMPRESSION: 1. Area of abnormal signal intensity in the right lateral peripheral zone in the mid gland, highly suspicious for clinically significant prostate carcinoma. 2. Equivocal area in the left lateral peripheral zone in the mid gland/apex. 3. Hypointense lesion in the left femoral neck. By report this was present on a prior outside prostate MRI (not available for direct comparison) and no abnormal uptake was seen in this region on bone scan dated 12/18/2023. PI-RADS 5: Very high (clinically significant cancer is highly likely to be present) PI-RADS Assessment Categories PI-RADS 1: Very low (clinically significant cancer is highly unlikely to be present) PI-RADS 2: Low (clinically significant cancer is unlikely to be present) PI-RADS 3: Intermediate (the presence of clinically significant cancer is equivocal) PI-RADS 4: High (clinically significant cancer is likely to be present) PI-RADS 5: Very high (clinically significant cancer is highly likely to be present) [employer]. MR Prostate Imaging Reporting and Data System version 2.1. [email or web address] Electronically signed by: Yogi Martinez MD 04/16/2025 11:06 AM EDT
== END 2025-04-16 09:03 | disposition home or self-care (01) ==
LOC: HO.MRI 09:02
PROVIDERS: PCP Student in an Organized Health Care Education/Training Program; Visit Provider Urology
DX: C61 Malignant neoplasm of prostate (principal); Z19.1 Hormone sensitive malignancy status
CPT/HCPCS: 72197; 76377; A9585

== ENCOUNTER → 2025-04-16 09:13 | Outpatient (BNV) | payer BC, SELFPAY | PROVIDERS: PCP Student in an Organized Health Care Education/Training Program; Visit Provider Radiology Diagnostic Radiology | DX: C61 Malignant neoplasm of prostate (principal) | CPT/HCPCS: 72197; 76377 ==

== ENCOUNTER 2025-04-22 14:15 | Outpatient (AMB) | payer BC, SELFPAY ==
[2025-04-22 14:18] VITALS: BP 116/52; PULSE 75; BMI 38.9
--- NOTE | 2025-04-22 14:18 | MHC.OFFVIS ---
Vital Signs 04/22/25 14:18 Height 5 ft 10 in Weight 271 lb 2.697 oz BMI 38.9 BP 116/52 L Blood Pressure Location Lt brachial Position Sitting Pulse 75 Pulse Source Monitor Intake Visit Reasons: 3 mth f/up Accompanied by: Self / Same As Patient Allergies No Known Allergies Allergy (Verified 04/22/25 14:22) Medication List - Last Reconciled 04/22/25 by Cholo Novak NP apixaban (Eliquis) 5 mg PO BID cetirizine (Zyrtec) 10 mg PO DAILY empagliflozin 10 mg PO DAILY finasteride 5 mg PO DAILY 90 days folic acid 1 mg PO DAILY furosemide 40 mg PO BID metoprolol tartrate 100 mg PO BID sacubitril-valsartan 49-51 mg (Entresto) 1 tab PO BID simvastatin 20 mg PO BEDTIME HPI Comments Details: This is a 64-year-old male patient coming in for a follow-up visit status post catheter ablation with Dr. Brizuela for AFib. Patient with a history of AFib status post cardioversions x3 and was on amiodarone for rhythm control. Patient also with a history of nonischemic cardiomyopathy, obesity, and heavy alcohol use. With his ongoing symptoms of shortness of breath and feeling fatigued, and no improvement in the EF even though on guideline directed medical therapy, patient underwent catheter ablation on 04/14/2025. Patient reports that he has not seen any change in his symptoms of shortness of breath and feeling fatigued. Patient does note that he has been gaining weight slowly because of his diet. Patient was previously referred out to cardiac rehab which he discontinued and is now doing on his own at home. Patient is otherwise reporting compliance with all his medications. [facility] [place] Medical History Persistent atrial fibrillation Left atrial thrombus CHF (congestive heart failure) Atrial fibrillation with rapid ventricular response Acute HFrEF (heart failure with reduced ejection fraction) Afib CHF (congestive heart failure) Hay fever Surgical History Hx of hand surgery History of cataract surgery Family History Mother No problems noted. Father No problems noted. 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: No Hearing needs: No Vision needs: No Review of Systems Const Denies daytime sleepiness, Denies difficulty sleeping, Denies snoring, Denies stops breathing during sleep and Denies weakness Card Denies chest pain, Denies rapid heart rate, Denies irregular heart rhythm, Denies claudication, Denies leg edema, Denies lightheadedness, Denies palpitations, Reports dyspnea, Denies dyspnea on exertion, Reports orthopnea, Denies paroxysmal nocturnal dyspnea and Denies slow heart rate Resp Denies cough, Reports dyspnea, Denies dyspnea on exertion and Denies snoring GI Reports no additional complaints, Denies hematochezia, Denies change in stool character and Denies dyspepsia Musc Denies abnormal gait, Denies muscle weakness and Denies numbness Neuro Denies abnormal gait, Denies numbness and Denies weakness Endo Denies palpitations Physical Exam Vital Signs: Last Vital Signs Pulse 75 04/22/25 14:18 BP 116/52 L 04/22/25 14:18 BMI result Body Mass Index 38.9 Const General: cooperative, healthy appearing, comfortable and no acute distress Orientation/consciousness: patient oriented x3 HEENT Head: Yes normal to inspection Neck Neck: Yes normal visual inspection, Yes trachea midline and Yes supple Chest Chest palpation & inspection: normal inspection of the chest Resp Effort & Inspection: normal respiratory effort Auscultation: clear to auscultation bilaterally, no crackles, no rales, no rhonchi and no wheezes Cardio Jugular venous distension: no JVD Palpation: normal PMI Rate: regular rate Rhythm: regular rhythm Heart sounds: S1 normal heart sound present, S2 normal heart sound present, no click, no gallops, no murmurs and no rubs Peripheral pulses: Peripheral pulses 2+ throughout GI Inspection: Yes normal to inspection Palpation (GI): Soft to palpation Auscultation: normal bowel sounds Skin General skin exam: no rashes or lesions noted Neuro General: patient oriented x3 Extrem General: Yes normal to inspection, No no pedal edema and No calf tenderness Psych Appearance: grossly normal Mental Status: mental status grossly normal Speech and movement: Normal speech and movement present Office Procedures EKG Details: EKG today shows normal sinus rhythm, rate 75 beats per minute, left axis deviation, right bundle branch block and left anterior fascicular block, nonspecific STT wave, normal [place], [place]. [id number], Complete Assessment & Plan Assessment & Plan (1) Atrial fibrillation: Code(s): I48.91 - Unspecified atrial fibrillation Category: Medical Plan: History of AFib status post multiple cardioversions and was previously suppressed on amiodarone therapy. Patient with ongoing symptoms of shortness of breath and fatigue with persistent [id number] LV systolic dysfunction and therefore was referred out for catheter ablation with EP. Today, patient is 1 week status post catheter ablation. Patient was discontinued off amiodarone after the procedure. Patient continues to be in sinus rhythm at this time. Unfortunately, patient continues to report ongoing symptoms. We will repeat an echocardiogram to see if there is any improvement in the LV systolic function. Continue Eliquis for full anticoagulation. Denies any signs of bleeding. Emphasized heavily on staying abstinent from alcohol. Patient verbalizes understanding. (2) Heart failure with reduced ejection fraction: Code(s): I50.20 - Unspecified systolic (congestive) heart failure Category: Medical Plan: 08/21/2024-echo study showed an LV systolic function between 30-35% with mild LVH. Clinically euvolemic. Continue current regimen of Jardiance, Lasix, metoprolol, and Entresto. Signs and symptoms of heart failure reviewed with the patient. Advised low-salt diet, fluid restriction at 2 L daily, and daily weight monitoring. Patient had a CTA heart for vein mapping pre ablation that showed calcification in the LAD. If patient continues to have symptoms and unchanged EF then we can pursue a coronary CTA to look for ischemic disease. Patient did have a myocardial perfusion study on 02/21/2024 that showed no reversible ischemia with a fixed apical defect. Continue statin therapy. (3) Severe sleep apnea: Code(s): G47.30 - Sleep apnea, unspecified Category: Medical Plan: Continue CPAP therapy. Patient is going to explore weight loss management with PCP. Advised heart healthy diet, regular exercise, weight loss, med compliance, complete abstinence from alcohol and tobacco, and aggressive management of vascular risk factors. Follow up in 3 months. In the interim, patient will call the office with any concerns or change in symptoms. Advised patient to seek ER care in case of exertional chest pain not resolved with rest. This note was generated using voice recognition software. While every effort has been made to ensure accuracy and proper entertainment manager, there may be occasional errors that could affect the content or meaning of the described symptoms. Orders: Orders AMB EKG-In Office Today I48.91 - Unspecified atrial fibrillation ECG holter monitor 48 hour Today I48.91 - Unspecified atrial fibrillation Coding Level of Care Code Est Pt Level 4 (48736) Complex EM visit Add On G2211 Diagnoses Atrial fibrillation I48.91 Heart failure with reduced ejection fraction I50.20 Severe sleep apnea G47.30 CPT Codes EKG - CPT: 93869-[id number], Complete ([id number]) Time Spent (min) 32 Comment Time spent in reviewing the chart, test results, assessment, counseling and documentation.
== END 2025-04-22 14:48 | disposition home or self-care (01) ==
LOC: HO.HCS 14:15
PROVIDERS: PCP Internal Medicine; Visit Provider Internal Medicine Cardiovascular Disease
DX: I48.91 Unspecified atrial fibrillation (principal); I50.20 Unspecified systolic (congestive) heart failure; G47.30 Sleep apnea, unspecified
CPT/HCPCS: 93010; 99214

== ENCOUNTER → 2025-04-22 14:15 | Outpatient (BNVA) | payer BC, SELFPAY | PROVIDERS: PCP Internal Medicine; Visit Provider Internal Medicine Cardiovascular Disease | DX: I48.91 Unspecified atrial fibrillation (principal); I50.20 Unspecified systolic (congestive) heart failure; G47.30 Sleep apnea, unspecified; Z79.01 Long term (current) use of anticoagulants; Z79.899 Other long term (current) drug therapy | CPT/HCPCS: 93005 ==

== ENCOUNTER 2025-05-01 14:14 | Outpatient (AMB) | payer BC, SELFPAY ==
--- NOTE | 2025-05-01 14:14 | MHC.OFFVIS ---
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 He has a patient of Dr. Diamond. He seen for the following urologic conditions - elevated PSA Accompanied by Discussed staging results Prolaris - cell cycle score 4.0, borderline multimodal therapy, right-hand side unfavorable intermediate risk Prostate MRI - 27gm Right lateral peripheral zone in the mid gland extending to the base measuring up to 1.6 cm Prostate cancer - grade group 2, low volume - 03/24 PSA 10.2 TRUS 45cc pT1c 03/24 Histologic type: Prostatic adenocarcinoma, acinar type Histologic grade: Valery score: 7 (3+4) (left base lateral 25% and right base lateral 25%), 6 (3+3) (left base medial 5%, left apex lateral 5%, right mid medial 50%) Tumor quantitation: Number cores positive: 5 Total number of cores: 12 % of tissue involved: 4% Periprostatic fat inv.: Not identified Seminal vesicle inv.: Not identified Perineural inv.: Not identified Lymphatic and/or vascular invasion: Not identified Previously following up with Dr. Sheppard approximately 8-10 years ago and having had prostate biopsy noting prostate cancer however never followed up Prostate Cancer Therapy Discussion today focused on treatment options for prostate cancer. The patient has already reviewed educational materials that had been provided to him in printed form. The NCCN criteria for imaging, molecular testing and germ line testing were discussed. Prognostic Model Information calculated using STAR-CAPS [email or web address] Stage Prediction 1C 5yr Specific Mortality 0.5% 10yr Specfic Mortality 2% The discussion was then focused on therapeutic options which include 1) Deferred therapy/active surveillance. Recommended in the setting of low volume, very low risk and low risk disease. Criteria include 3 cores all less, same side, no core greater than 50% disease. Evaluation may be augmented with imaging such as pelvic MRI and genetic evaluation of biopsy material. Somatic tissue genetic testing such as Prolaris, which focuses on tumor-specific pathogenic variants that may identify an indication for further germline testing and can guide therapeutic decisions in the setting of low risk and low volume disease. - The patient is not a candidate for active surveillance. NCCN Prostate Cancer Guideline 4.2022 PROS-F Page 2 PRINCIPLES OF ACTIVE SURVEILLANCE AND OBSERVATION Confirmatory Testing to Establish Appropriateness of Active Surveillance: - Goals of confirmatory testing are to help facilitate early identification of those patients who may be at a higher risk of future grade reclassification or cancer progression. - Since an initial prostate biopsy may underestimate tumor grade or volume, confirmatory testing is strongly recommended within the first 6 to 12 months of diagnosis for patients who are considering active surveillance. - Options for confirmatory testing include prostate biopsy, mpMRI with calculation of PSA density (and repeat biopsy as indicated), and/or molecular tumor analysis, see Principles of Risk Stratification (PROS-D). - Early confirmatory testing may not be necessary in patients who have had an mpMRI prior to diagnostic biopsy. ?All patients should undergo a confirmatory prostate biopsy within 1?2 years of their diagnostic biopsy 2) Targeted Cryotherapy Ablation. The technique of cryotherapy was described. PSA free progression rates were discussed. Suitable candidates in general have low volume grade group 1 or grade group 2 disease. Typically pelvic MRI with targeted mapping biopsies are required for treatment planning. - The patient is not a candidate for image guided targeted cryotherapy ablation. 3) Robotic Prostatectomy. Salient features of the patient's PSA, [place] score and disease stage were applied to the [facility] [place] nomogram. Relevant rates of extracapsular extension, seminal vesicle involvement justin involvement with discussed. Pathologic up staging and down staging on final specimen was discussed. Salient features of the procedure, hospitalization and recovery were discussed. - The patient is a candidate for robotic prostatectomy. 4) Radiation therapy was described. IMRT, hyperfractionated therapy, permanent seed implant with all without concomitant androgen deprivation therapy and rectal protection were discussed. There is a small separation regarding cancer control between radiation and prostatectomy at approximately 15 years. There is an evolving preference for hyper fractionated therapy. This gives the same radiation total dose in a reduced number of individual treatment sessions. This approach is associated with higher risks of rectal bleeding. To ameliorate these risks injection of a spacer gel posterior to the prostate has been advocated. This is only indicated in patients without evidence of extracapsular extension posteriorly, and should be considered with caution where disease is primary grade 4. Brachytherapy was described in detail. Typically this is a same day procedure. Therapy is typically well tolerated and gives good control for low-risk prostate cancer and cancer that does not involve neurovascular invasion. - The patient is a candidate for brachytherapy versus external beam Different risks were described for each therapeutic option. Ranges from the published literature were discussed. Consequent morbidity and treatment to address complications were discussed. These include - robotic prostatectomy - Typically patients are in hospital for one day and miss 4 weeks of work. The importance of preoperative walking and Kegel exercises was stressed. Complications, including but not limited to; acute complications regarding blood loss, transfusion, DVT, ileus, wound infection and potential mortality. Long-term complications such as impotence, UTI, urethral stricture, bladder neck contracture, incontinence. Penile shrinkage and chronic pain were discussed and reviewed. - radiation - IMRT typically this takes 25-40 daily treatments administered on a Monday through Monday sequence. Treatment is normally well tolerated. associated side effects include urge, frequency, dysuria, hematuria, loose bowels and fatigue, particularly toward the end of therapy. These can be ameliorated to some degree with medication. Long-term risks regarding impotence and a small risk of chronic urinary urge and incontinence were discussed - brachytherapy General anesthesia is used. Radioactive seeds are placed. There may be a required planning visit. Risks regarding anesthesia with DVT, PE, infection, urinary retention, urgency, and frequency were discussed. Long-term risks include bladder neck contraction, impotence, urge, potential for secondary cancer of the bladder base The patient has Grade Group 2 pT1c prostate cancer disease Based on the patient's age, comorbidities and personal preferences reasonable treatment options include brachytherapy The patient is not a candidate for germline testing in accordance with the NCCN guideline Leaning towards brachytherapy [facility] Medical History Persistent atrial fibrillation Left atrial thrombus CHF (congestive heart failure) Atrial fibrillation with rapid ventricular response Acute HFrEF (heart failure with reduced ejection fraction) Afib CHF (congestive heart failure) Hay fever Surgical History Hx of hand surgery History of cataract surgery Family History Mother No problems noted. Father No problems noted. 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: No Hearing needs: No Vision needs: No Review of Systems Const Denies chills and Denies fever(s) Card Reports no additional complaints and Denies syncope Resp Denies cough GI Denies abdominal pain and Denies heartburn Reports as per HPI and Denies change in libido Neuro Denies syncope Psych Denies change in libido Endo Denies change in libido Physical Exam Const General: cooperative, healthy appearing, comfortable and no acute distress Orientation/consciousness: patient oriented x3 HEENT Face and sinus: Yes normal facial exam Mouth: moist mucous membranes Neck Neck: Yes normal visual inspection, Yes full ROM and Yes trachea midline Chest Chest palpation & inspection: normal inspection of the chest Resp Effort & Inspection: normal respiratory effort, able to speak in complete sentences and no respiratory distress GI Inspection: Yes normal to inspection Back/Spine/Pelvis Cervical Spine: normal cervical lordosis Thoracic/Lumbar Spine: thoracic and lumbar spine normal to inspection Skin General skin exam: no rashes or lesions noted Neuro General: patient oriented x3, gait normal, tone normal and moves all extremities Extrem General: Yes normal to inspection and Yes capillary refill normal Assessment & Plan Assessment & Plan (1) Hormone sensitive prostate cancer: Code(s): C61 - Malignant neoplasm of prostate; Z19.1 - Hormone sensitive malignancy status Category: Medical Plan Refer radiation oncology Six week follow-up office Orders: Orders PET CT fusion skull to thigh Today C61 - Malignant neoplasm of prostate, Z19.1 - Hormone sensitive malignancy status Referrals Radiation Oncology Referral C61 - Malignant neoplasm of prostate, Z19.1 - Hormone sensitive malignancy status Radiation Oncology Referral C61 - Malignant neoplasm of prostate, Z19.1 - Hormone sensitive malignancy status Patient Instructions: This note is constructed using voice recognition software. While every effort has been made to ensure accuracy custom car builder errors may have been included. Imaging studies, laboratory and physical exam results were discussed and reviewed in detail. No major barriers to patient understanding were identified. An opportunity to ask questions regarding the treatment plan was provided. All questions were answered. The patient expressed understanding and agreement with the above treatment plan. The patient is aware they should contact our office by phone for worsening of their current condition or the appearance of new urologic symptoms. Compliance is encouraged with any medications and followup testing that is ordered. It is a privilege to participate in the urologic care of your patient. If you have any questions or concerns regarding treatment for the above conditions, or other urologic issues, please do not hesitate to contact me. The office telephone contact is [phone]. Sincerely, Dr Epi Marie MD, [facility] - Urology Compassionate Specialist Care for the Genitourinary System Coding Level of Care Code Est Pt Level 4 (79351) Diagnoses Hormone sensitive prostate cancer C61; Z19.1
== END 2025-05-01 14:59 | disposition home or self-care (01) ==
LOC: HO.HUSH 14:15
PROVIDERS: PCP Internal Medicine; Visit Provider Urology
DX: C61 Malignant neoplasm of prostate (principal); Z19.1 Hormone sensitive malignancy status
CPT/HCPCS: 99214

== ENCOUNTER 2025-06-11 14:05 | Outpatient (AMB) | payer BC, SELFPAY ==
--- NOTE | 2025-06-11 14:11 | A.OFFPC_ITS ---
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 The patient has a history of atrial fibrillation and underwent an ablation approximately two months ago, which he reports is currently holding. He also has a history of congestive heart failure with an ejection fraction of 30-35% and reports symptoms of a foggy head and dyspnea on minimal exertion, such as when putting on his socks. He was diagnosed with prostate cancer via biopsy and was supposed to follow up locally for radiation therapy. He is also considering brachytherapy in [place] but has not yet received an appointment. His medical history is also significant for obstructive sleep apnea, for which he uses a CPAP machine nightly. Lab work from January of this year showed a total cholesterol of 249 mg/dL, LDL of 136 mg/dL, HbA1c of 5.4%, and a high PSA level, with normal thyroid and kidney function. He reports concerns about his memory and takes turmeric and honey. Medical History: - Atrial fibrillation - Congestive heart failure with ejection fraction 30-35% - Prostate cancer, diagnosed via biopsy - Hyperlipidemia - Obstructive sleep apnea, on CPAP thera py - Eczema - Venous stasis dermatitis Surgical History: - Atrial fibrillation ablation, approxim ately 2 months prior to visit - Prostate biopsy Medications: - Eliquis, for atrial fibrillation - Jardiance 10 mg, for congestive heart failure - Furosemide 40 mg twice daily, for forest estive heart failure - Metoprolol tartrate 100 mg twice daily , for heart rate control - Entresto 49/51 mg twice daily, for con gestive heart failure - Simvastatin, for hyperlipidemia Diagnostic Results: - Labs (from January): - Total cholesterol was high at 249 mg/d L. - LDL cholesterol was 136 mg/dL. - PSA level was high. - Thyroid function was good. - Hemoglobin A1c was 5.4%. - Kidney function was normal. - Biopsy: Prostate biopsy was positive f or cancer. 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 - Exercise and functional status: The raphael merrill reports significant dyspnea on exertion, including when putting on his socks. - Diet and nutrition: The patient takes turmeric and honey for memory and has been advised to reduce his overall food intake. - Sleep: He uses a CPAP machine every ni ght. [facility] Medical History (Updated 06/11/25 @ 14:42 by Sebastian Farah MD) Hyperlipidemia Persistent atrial fibrillation Left atrial thrombus CHF (congestive heart failure) Atrial fibrillation with rapid ventricular response Acute HFrEF (heart failure with reduced ejection fraction) Afib CHF (congestive heart failure) Hay fever Surgical History Hx of hand surgery History of cataract surgery Family History Mother No problems noted. Father No problems noted. 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 1. Little interest or pleasure in doing things: not at all 2. Feeling down, depressed, or hopeless: not at all 3. Trouble falling or staying asleep, or sleeping too much: not at all 4. Feeling tired or having little energy: not at all 5. Poor appetite or overeating: not at all 6. Feeling bad about yourself - or that you are a failure or have let yourself or your family down: not at all 7. Trouble concentrating on things, such as reading the newspaper or watching television: not at all 8. Moving or speaking so slowly that other people could have noticed. Or the opposite - being so fidgety or restless that you have been moving around a lot more than usual: not at all 9. Thoughts that you would be better off or of hurting yourself in some way: not at all Total score: 0 Depression Screening Interpretation: Negative Depression Screening Done: Yes Source: Developed by Drs. Yogi Rivera, Geraldine Matthews, Seth Richardson and colleagues, with an educational vidal from [employer]. Thrive Questionnaire Date Thrive assessed: 06/11/25 I am a: Patient What is your living situation today?: I have a steady place to live Within the past 12 months, did the food you bought not last and you didn't have the money to get more?: Never true Within the past 12 months, did you worry whether your food would run out before you got money to buy more?: Never true Do you have trouble paying for medicines?: No Do you have trouble getting transportation to medical appointments?: No Do you have trouble paying your heating and electricity bill?: No Do you have trouble taking care of your child, family member or friend?: No Do you have trouble with day-to-day activities such as bathing, preparing meals, shopping, managing finances, etc.?: No Are you currently unemployed and looking for a job?: No Are you interested in more education?: No THRIVE Score: 0 AUDIT C Alcohol Use Questionnaire (AUDIT-C) 1. How often do you have a drink containing alcohol?: Never Total Score: 0 Score Reviewed/Action Taken: Yes DELMAR-7 AMB Questionnaire DELMAR-7 Date DELMAR - 7 assessed: 06/11/25 Feeling nervous, anxious, or on edge: 0 = Not at all Not being able to stop or control worryin = Not at all Worrying too much about different things: 0 = Not at all Trouble relaxin = Not at all Being so restless that it is hard to sit still: 0 = Not at all Becoming easily annoyed or irritable: 0 = Not at all Feeling afraid as if something awful might happen: 0 = Not at all Total DELMAR-7 score (0-4 normal; 5-9 mild; 10-14 moderate; 15-21 severe): 0 Source: Developed by Drs. Yogi Rivera, Geraldine Matthews, Seth Richardson and colleagues, with an educational vidal from [employer]. Review of Systems Narrative - Cardiovascular: Reports history of atrial fibrillation, now resolved post- ablation. - Respiratory: Reports dyspnea on minimal exertion, such as putting on socks. - Genitourinary: Reports nocturia, getting up twice a night to urinate. - Neurological: Reports a foggy head and concerns about his memory. - Integumentary: Reports dry skin on his arm. All systems reviewed & are unremarkable except as reviewed in HPI and above Physical exam (Primary Care) Vital Signs: Last Vital Signs Temp 97.7 F 06/11/25 14:14 Pulse 71 06/11/25 14:14 Resp 20 06/11/25 14:14 BP 158/90 H 06/11/25 14:14 Pulse Ox 95 06/11/25 14:14 Oxygen Delivery Method Room Air 06/11/25 14:14 BMI result Body Mass Index 38.9 Tobacco/Smoking Status: Tobacco use Status Tobacco use date assessed 12/04/24 06/11/25 14:13 Patient Tobacco Use Status Current everyday Tobacco 06/11/25 14:13 Tobacco use type Cigarette 06/11/25 14:13 e-Cigarette/Vaping Use Former Use 06/11/25 14:17 Depression Screening Interpretation: Negative Thrive Assessment: Date of Thrive Assessment Date Thrive assessed 12/04/24 06/11/25 14:13 Narrative General: +Alert and oriented, Well nourished, No acute distress. Eye: Pupils are equal, round and reactive to light, Intact accommodation, Extraocular movements are intact, Normal conjunctiva, Vision unchanged. HENT: Normocephalic, Atraumatic, Tympanic membranes are clear, Normal hearing, Oral mucosa is moist, No pharyngeal erythema, Ear canals patent. Respiratory: Lungs CTA bilaterally, No wheeze, Respirations are non-labored. Cardiovascular: Regular rate, Regular rhythm, S1 auscultated, S2 auscultated, No murmur, Good pulses equal in all extremities, Normal peripheral perfusion, No edema. Gastrointestinal: Soft, Non-tender, Non-distended, Normal bowel sounds, No organomegaly. Musculoskeletal: Normal range of motion, Normal strength, No tenderness, No swelling, No deformity, Normal gait. Integumentary: Warm, Dry, [place], Intact, Eczema noted on arms. Neurologic: Alert, Oriented, Normal sensory, Normal motor function, No focal defects, Cranial Nerves II-XII are grossly intact, Normal deep tendon reflexes. Psychiatric: Cooperative, Appropriate mood & affect, Normal judgment. Coding Level of Care Code Est Pt Level 4 (53053) Complex EM visit Add On G2211 Diagnoses Heart failure with reduced ejection fraction I50.20 Paroxysmal atrial fibrillation I48.0 Severe sleep apnea G47.30 Hormone sensitive prostate cancer C61; Z19.1 Hyperlipidemia, unspecified hyperlipidemia type E78.5 Hyperlipidemia type: unspecified Assessment & Plan Assessment & Plan (1) Heart failure with reduced ejection fraction: Comment: - The patient is on appropriate goal-directed medical therapy (GDMT), including Entresto, Jardiance, metoprolol, and furosemide, to improve heart function. - He will continue these medications and monitor his weight daily. - Cardiac rehabilitation was recommended to improve stamina and manage dyspnea on exertion. Code(s): I50.20 - Unspecified systolic (congestive) heart failure Category: Medical (2) Paroxysmal atrial fibrillation: Comment: - The patient's rhythm is stable after a recent ablation. - He will continue Eliquis for anticoagulation. - The duration of therapy will be determined by his director of slot operations, Dr. Vasquez, whom he needs to consult. Code(s): I48.0 - Paroxysmal atrial fibrillation Category: Medical (3) Severe sleep apnea: Comment: - The patient is compliant with nightly CPAP use and is advised to continue. Code(s): G47.30 - Sleep apnea, unspecified Category: Medical (4) Hormone sensitive prostate cancer: Comment: - This is the most urgent health issue. - The patient needs to actively follow up to schedule his radiation oncology treatment, potentially brachytherapy. - Consideration of any new medications, including for weight loss, is deferred until after his cancer treatment plan is established. Code(s): C61 - Malignant neoplasm of prostate; Z19.1 - Hormone sensitive malignancy status Category: Medical (5) Hyperlipidemia: Comment: - Labs from January showed elevated cholesterol. - He will continue simvastatin. - A diet focused on healthy eating and weight management was encouraged. Code(s): E78.5 - Hyperlipidemia, unspecified Category: Medical Qualifiers: Hyperlipidemia type: unspecified Qualified Code(s): E78.5 - Hyperlipidemia, unspecified Plan: Health Maintenance: - Vaccinations: Recommended receiving influenza and COVID-19 shots, which are important due to his cardiac conditions. - Healthy lifestyle discussions: Advised to improve his diet by reducing food intake and to increase physical activity, such as by walking more than 5,000 steps a day. - Screening: Follow-up appointment scheduled in six months for a full physical exam and repeat blood work. - Monitoring: Advised to check his weight daily to monitor for fluid overload. - Cardiac Rehabilitation: Recommended the patient return to cardiac rehab to build stamina. Patient was informed and verbally consented to the use of an ambient scribe for clinic note documentation during this visit. Plan I discussed with the patient the status of his multiple chronic conditions. I explained that while his atrial fibrillation appears stable after ablation, the decision to discontinue Eliquis rests with his director of slot operations, Dr. Vasquez. We reviewed his congestive heart failure regimen, and I emphasized that the current goal-directed medical therapy (Entresto, Jardiance, metoprolol, furosemide) is clinically proven to improve heart function and is essential for preventing worsening of his condition and hospitalization. I stressed that his prostate cancer is the most urgent priority and that he must proactively follow up to schedule treatment, as this takes precedence over other concerns. Regarding weight loss, I advised against starting new medications before his cancer therapy is established and instead encouraged diet and increased physical activity. I recommended cardiac rehabilitation to improve his stamina and strongly advised him to get his flu and COVID-19 vaccinations. We will have a follow-up visit in six months for a full physical and to review lab work. Patient Instructions: - Continue taking all your current heart medications as prescribed, including Eliquis, Entresto, Jardiance, furosemide, and metoprolol. - You must contact your heart doctor (director of slot operations) to ask when it is safe to stop taking Eliquis. - Your most important task right now is to follow up with the cancer doctors to schedule your treatment for prostate cancer. - Weigh yourself every day to watch for sudden weight gain, which can be a sign of fluid buildup. - Continue to use your CPAP machine every night for your sleep apnea. - Work on eating a healthier diet and try to be more physically active on your days off from work. - Consider re-joining a cardiac rehab program to help you get stronger. - Use a good moisturizer on your arms and legs for the dry skin. - Get your flu shot and COVID-19 shot to protect yourself from getting sick. - Schedule a follow-up appointment in six months for a check-up and blood tests.
[2025-06-11 14:14] VITALS: BP 158/90; PULSE 71; RESP 20; TEMP 36.5; O2SAT 95; BMI 38.9
== END 2025-06-11 14:36 | disposition home or self-care (01) ==
PROVIDERS: PCP Student in an Organized Health Care Education/Training Program; Visit Provider Student in an Organized Health Care Education/Training Program
DX: I50.20 Unspecified systolic (congestive) heart failure (principal); I48.0 Paroxysmal atrial fibrillation; G47.30 Sleep apnea, unspecified; C61 Malignant neoplasm of prostate; Z19.1 Hormone sensitive malignancy status; E78.5 Hyperlipidemia, unspecified

== ENCOUNTER 2025-06-25 14:27 | Outpatient (AMB) | payer BC, SELFPAY ==
--- NOTE | 2025-06-25 14:31 | MHC.OFFVIS ---
Intake Visit Reasons: Prostate MRI/Ins Denied PSMA(SET) Intake Note: Reason for Visit: Prostate MRI (Insurance Denied PSMA) Urology Meds: Finasteride Blood Thinners: Eliquis Labs: PSA- 10.14 (02/20/2025) Prolaris: 04/16/2025 Imaging: Prostate MRI 04/16/2025 Last PVR: None Design Coordinator Required: No Accompanied by: Self / Same As Patient Allergies No Known Allergies Allergy (Verified 06/11/25 14:11) HPI Comments Details: Samy is a pleasant male. He has a patient of Dr. Diamond. He seen for the following urologic conditions - prostate cancer Follow-up after referral to Radiation Oncology Actually meeting with radiation next week Determination of seeds versus external beam Grade group 2 by pathology however PSA borderline to unfavorable intermediate He will message with nurses Staging Prolaris - 04/24 cell cycle score 4.0, borderline multimodal therapy, right-hand side unfavorable intermediate risk Prostate MRI - 04/24 27gm Right lateral peripheral zone in the mid gland extending to the base measuring up to 1.6 cm Prostate cancer - grade group 2, low volume - 03/24 PSA 10.2 TRUS 45cc pT1c 03/24 Histologic type: Prostatic adenocarcinoma, acinar type Histologic grade: Valery score: 7 (3+4) (left base lateral 25% and right base lateral 25%), 6 (3+3) (left base medial 5%, left apex lateral 5%, right mid medial 50%) Tumor quantitation: Number cores positive: 5 Total number of cores: 12 % of tissue involved: 4% Periprostatic fat inv.: Not identified Seminal vesicle inv.: Not identified Perineural inv.: Not identified Lymphatic and/or vascular invasion: Not identified Previously following up with Dr. Sheppard approximately 8-10 years ago and having had prostate biopsy noting prostate cancer however never followed up [facility] Medical History (Updated 07/06/25 @ 21:02 by Epi Marie MD) Hyperlipidemia Persistent atrial fibrillation Left atrial thrombus CHF (congestive heart failure) Atrial fibrillation with rapid ventricular response Acute HFrEF (heart failure with reduced ejection fraction) Afib CHF (congestive heart failure) Hay fever Surgical History Hx of hand surgery History of cataract surgery Family History Mother No problems noted. Father No problems noted. 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 Cognitive needs: No Hearing needs: No Vision needs: No Review of Systems Const Denies chills and Denies fever(s) Card Reports no additional complaints and Denies syncope Resp Denies cough GI Denies abdominal pain and Denies heartburn Reports as per HPI and Denies change in libido Neuro Denies syncope Psych Denies change in libido Endo Denies change in libido Physical Exam Const General: cooperative, healthy appearing, comfortable and no acute distress Orientation/consciousness: patient oriented x3 HEENT Face and sinus: Yes normal facial exam Mouth: moist mucous membranes Neck Neck: Yes normal visual inspection, Yes full ROM and Yes trachea midline Chest Chest palpation & inspection: normal inspection of the chest Resp Effort & Inspection: normal respiratory effort, able to speak in complete sentences and no respiratory distress GI Inspection: Yes normal to inspection Back/Spine/Pelvis Cervical Spine: normal cervical lordosis Thoracic/Lumbar Spine: thoracic and lumbar spine normal to inspection Skin General skin exam: no rashes or lesions noted Neuro General: patient oriented x3, gait normal, tone normal and moves all extremities Extrem General: Yes normal to inspection and Yes capillary refill normal Assessment & Plan Assessment & Plan (1) Hormone sensitive prostate cancer: Code(s): C61 - Malignant neoplasm of prostate; Z19.1 - Hormone sensitive malignancy status Category: Medical Plan He will contact us through messaging once radiation consultation completed Patient Instructions: This note is constructed using voice recognition software. While every effort has been made to ensure accuracy medical underwriter errors may have been included. Imaging studies, laboratory and physical exam results were discussed and reviewed in detail. No major barriers to patient understanding were identified. An opportunity to ask questions regarding the treatment plan was provided. All questions were answered. The patient expressed understanding and agreement with the above treatment plan. The patient is aware they should contact our office by phone for worsening of their current condition or the appearance of new urologic symptoms. Compliance is encouraged with any medications and followup testing that is ordered. It is a privilege to participate in the urologic care of your patient. If you have any questions or concerns regarding treatment for the above conditions, or other urologic issues, please do not hesitate to contact me. The office telephone contact is [phone]. Sincerely, Dr Epi Marie MD, [facility] - Urology Compassionate Specialist Care for the Genitourinary System Coding Level of Care Code Est Pt Level 3 (68103) Complex visit Add On G2211 Diagnoses Hormone sensitive prostate cancer C61; Z19.1
--- OUTSIDE RECORDS SUMMARY | 2025-06-25 17:17 | XMS_ITS | Clinical Summary ---
Author Organization [facility] Address [address] [place] [id number] Phone Care Team Providers Care Fur Trimming Machine Operator Name Role Phone Epi Marie MD Unavailable Pcp, Not Required Primary Care Provider Unavaila Daren Isbell DO Unavailable Social History Tobacco Use Types Packs/Day Years Used Date Smoking Tobacco: Never Assessed Education Answer Date Recorded Are you interested in more education? Not on quinn e 06/13/2025 Are you concerned about learning? Not on file 06/13/2025 No 06/13/2025 No 06/13/2025 Digital Access Answer Date Recorded No 06/13/2025 No 06/13/2025 Reliable internet access at home? Not on file 06/13/2025 Device with a working camera? Not on file Sex and Gender Information Value Date Recorded Sex Assigned at Male 06/12/2025 5:23 PM EST Legal Sex Male 5:22 PM EST Gender Identity Male 06/12/2025 5:23 PM EST Sexual Orientation Straight 06/12/2025 5: 23 PM EST Plan of Treatment Upcoming Encounters Date Type Department Care Team (Late st Contact Info) Description 07/16/2025 10:30 AM EST Office Visit [facility] of Radiation Oncology, At [address] [id number] Daren Ramos, DO [address] [place] [phone] [email or web address] Health Maintenance Due Date Last Done Comments Adult Td,Tdap Booster 1962 LIPID PANEL 1962 DEPRESSION SCREENING 1974 SMOKING Hx and SMOKELESS TOB ACCO SCREENING 1975 HEPATITIS C SCREENING 1980 HIV ONE-TIME SCREENING (18-6 5 YEARS) 1980 COLOGUARD 2007 COLONOSCOPY 2007 COLORECTAL CANCER SCREENING 2007 FIT TEST 2007 FOBT 2007 SIGMOIDOSCOPY 2007 VIRTUAL COLONOSCOPY 2007 PNEUMOCOCCAL VACCINES (50+ y ears) (1 of 1 - PCV) 2012 ZOSTER VACCINES (1 of 2) 2012 INFLUENZA VACCINE (#1) 2025 COVID-19 VACCINE (1 - 2024-2 6 season) 2025 RSV VACCINE (1 - 1-dose 75+ series) 2037 HEPATITIS A VACCINES Aged Out No long er eligible based on patient's age to complete this topic HIB VACCINES Aged Out No longer eligi ble based on patient's age to complete this topic MENINGOCOCCAL VACCINES (ACWY) Aged Out No longer eligible based on patient's age to complete this topic MENINGOCOCCAL VACCINES (B) Aged Out N o longer eligible based on patient's age to complete this topic Medical Devices Not on file Procedures Procedure Name Priority Date/Time Associated Diagnosis Comments OUTSIDE IMAGING 04/16/2025 from Last 3 Months Results * Outside Imaging Report Only (04/16/2025) us Scanning Interface Provider IMG XR CHEST Ryann l Result from Last 3 Months Insurance [facility] OUT OF STATE PPO BLUE CROSS OUT OF STATE PPO BLUE CROSS OUT OF STATE PPO BLUE [place]OSS OUT OF STATE PPO OUT [facility] OUT [facility] PPO Care Teams Fur Trimming Machine Operator Relationship Specialty Start Date End Date Pcp, Not Required [address] [place] [id number] PCP - General 06/12/25 Epi Marie MD [address] [place] [address] [place] [address] Referring Physician Urology 06/12/25 Daren Ramos DO [address] [place] [phone] [email or web address] Physical Therapist Radiation Oncology 06/17/25 Additional Source Comments The information contained in this document represents components of the legal health record. It is not the complete legal health record.[facility]
== END 2025-06-25 14:41 | disposition home or self-care (01) ==
LOC: HO.HUSH 14:28
PROVIDERS: PCP Internal Medicine; Visit Provider Urology
DX: C61 Malignant neoplasm of prostate (principal); Z19.1 Hormone sensitive malignancy status
CPT/HCPCS: 99213